=== PATIENT | female | born 1950 | race Caucasian/White ===

== ENCOUNTER 2020-01-04 12:33 | Outpatient (CLI) | payer MEDICARE, OTHER, SELFPAY ==
--- NOTE | ~2020-01-04 | MR_ITS ---
EXAMINATION: MR lumbar spine wo [facility] EXAM DATE: 01/04/2020 13:41 INDICATION: Low back pain. TECHNIQUE: Multi-sequential, multiplanar MR images of the lumbar spine were obtained without contrast . Sagittal T1, T2, T2 fat saturation images. Axial T2 weighted images. There is no prior study for comparison. FINDINGS: There is interbody and posterior fusion L4-S1. L4 and L5 laminectomies. There is moderate t o severe disc disease L2-3 and L3-4 with endplate degenerative signal change. The conus medullaris te rminates at the L1/2 level and has normal signal intensity and morphology. There is 3-4 mm retrolisth esis L2 on L3, 2-3 mm retrolisthesis L3 on L4. Paraspinal soft tissue is unremarkable. Level by level evaluation: T12-L1: Disc does not extend beyond the endplate margin. Facet arthropathy: None. Neural foraminal stenosis: No stenosis. Central canal stenosis: No stenosis. L1-L2: Disc does not extend beyond the endplate margin. Facet arthropathy: Mild. Neural foraminal stenosis: No stenosis. Central canal stenosis: No stenosis. L2-L3: There is a large diffuse disc bulge. Facet arthropathy: Moderate . Ligamentum flavum enlargement. Neural foraminal stenosis: Mild to moderate bilateral. Central canal stenosis: Moderate. L3-L4: There is a large diffuse disc bulge. Facet arthropathy: Severe . Ligamentum flavum enlargement. Neural foraminal stenosis: Moderate right, mild to moderate left. Central canal stenosis: Moderate to severe. L4-L5: This level is fused. Facet arthropathy: Poorly visualized. Neural foraminal stenosis: Mild right. Central canal stenosis: Posterior decompression. L5-S1: This level is fused. Facet arthropathy: Moderate. Neural foraminal stenosis: Mild right. Central canal stenosis: Posterior decompression. IMPRESSION: 1. Advanced disc disease L2-3 and L3-4 with L3-4 moderate to severe central canal stenosis. 2. L4-5 and L5-S1 fusion, laminectomies. Reviewed, dictated and finalized at location A. IMPRESSION: 1. Advanced disc disease L2-3 and L3-4 with L3-4 moderate to severe central ca nal stenosis. 2. L4-5 and L5-S1 fusion, laminectomies.
== END 2020-01-04 12:34 | disposition home or self-care (01) ==
LOC: ANHIMG 12:34
PROVIDERS: PCP Family Medicine; Visit Provider Nurse Practitioner
DX: M51.36 Other intervertebral disc degeneration, lumbar region (principal)
CPT/HCPCS: 72148

== ENCOUNTER 2020-06-10 11:27 | Outpatient (CLI) | payer MEDICARE, OTHER, SELFPAY ==
--- NOTE | ~2020-06-10 | MM_ITS ---
EXAMINATION: MM screening garcia BI w nayana HISTORY: Screening mammogram, family history of breast cancer in her sister. TECHNIQUE: Craniocaudal and mediolateral oblique 3-D tomosynthesis images were obtained and synthetic 2-D images were generated. CAD analysis was submitted and interpreted. COMPARISON: 05/31/2019, 04/28/2018, 04/14/2017 BREAST PARENCHYMAL COMPOSITION: There are scattered areas of fibroglandular density. FINDINGS: Scattered benign-appearing calcifications are present. There is no evidence of suspicious m ass, calcification, or architectural distortion to suggest malignancy in either breast. There has bee n no suspicious interval change. IMPRESSION: 1. No mammographic evidence of malignancy. 2. Recommend routine screening mammography in one year. BI-RADS Category 2: Benign finding(s). Reviewed, dictated and finalized at location A.
== END 2020-06-10 11:28 | disposition home or self-care (01) ==
LOC: ANHIMG 11:31
PROVIDERS: PCP Family Medicine; Visit Provider Student in an Organized Health Care Education/Training Program
DX: Z12.31 Encounter for screening mammogram for malignant neoplasm of breast (principal)
CPT/HCPCS: 77063; 77067

== ENCOUNTER 2021-01-10 08:40 | Outpatient (CLI) | payer MEDICARE, OTHER, SELFPAY ==
--- NOTE | ~2021-01-10 | CT_ITS ---
EXAMINATION: CT abdomen w con DATE: 01/10/2021 09:09 INDICATION: Left upper quadrant abdominal pain TECHNIQUE: Computed tomography (CT) of the abdomen was performed with 100 cc Omnipaque 350 intravenou s contrast. Automated exposure control and iterative reconstruction technique were employed. Exam dos e: 1029.60 mGy-cm total exam DLP. COMPARISON: 06/30/2015 CT abdomen pelvis noncontrast examination FINDINGS: There is minimal discoid atelectasis or scarring at the lung bases. Heart size is within normal range. No pericardial or pleural effusion. Small sliding hiatal hernia. 2.2 cm and 1 cm hepatic cysts. No suspicious solid space-occupying mass lesion of the liver. Status post cholecystectomy. No bile duct or pancreatic duct dilatation. No pancreatic mass lesion or calcification. Normal splenic size. Normal morphology of the adrenal glands. 13, 7 and 5 mm left renal cysts. Approximately 4 mm nonobstructing upper pole left renal calculus and adjacent renal scarring. No hydr onephrosis is noted on either side. Normal caliber of the abdominal aorta. No intraperitoneal or retroperitoneal mass lesion or adenopath y or ascites. Small fat-containing umbilical hernia. Status post posterior and interbody spinal surgical fusion at L4-S1. There is very severe degenerative disc disease and mild retrolisthesis at L2-3 and L3-4. IMPRESSION: Small sliding hiatal hernia Status post cholecystectomy Hepatic and left renal cysts 4 mm nonobstructing upper pole left renal calculus and adjacent left upper pole renal scarring Status post posterior and interbody surgical fusion at L4 S1 Severe degenerative disc disease and mild retrolisthesis at L2-3 and L3-4 Reviewed, dictated and finalized at Location A. Reviewed, dictated and finalized at location B.
[2021-01-10 09:13] LABS: Estimated Glomerular Filt Rate > 60
[2021-01-10 10:05] LABS: Hemoglobin A1C 5.6 % (<5.7)
[2021-01-14 11:31] LABS: Vitamin D 1,25 (OH)2 Total 41 pg/mL (18-72); Vitamin D2 1,25 (OH)2 <8 pg/mL; Vitamin D3 1,25 (OH)2 41 pg/mL
== END 2021-01-10 08:41 | disposition home or self-care (01) ==
PROVIDERS: PCP Nurse Practitioner Family; Visit Provider Nurse Practitioner Family
DX: R73.01 Impaired fasting glucose (principal); E03.9 Hypothyroidism, unspecified; E55.9 Vitamin D deficiency, unspecified; K44.9 Diaphragmatic hernia without obstruction or gangrene; Z90.49 Acquired absence of other specified parts of digestive tract; N28.1 Cyst of kidney, acquired; K76.89 Other specified diseases of liver; Z98.1 Arthrodesis status; M51.36 Other intervertebral disc degeneration, lumbar region
CPT/HCPCS: 74160; 82652; 83036; 84443; Q9967

== ENCOUNTER 2021-01-15 12:52 | Outpatient (RCR) | payer MEDICARE, OTHER, SELFPAY ==
--- NOTE | 2021-01-15 13:57 | PTOPEVAL ---
Thank you for referring Janette Bynum to [facility].? The patient is scheduled to be seen for therapy? __3__x/week for 12 visits. Please review, sign, date and return this plan of care CASANDRA. I agree with and certify that the following plan of care is medically necessary. Referring Physician Date Admitting Provider: Attending Provider: Noelle Tate NP Referring Provider: *PT Outpatient Evaluation Start: 01/15/21 13:00 Freq: Status: Active Protocol: Document 01/15/21 13:00 OBED (Rec: 01/15/21 13:56 OBED [id number]) Therapy Assessment Status Assessment Status Assessment Status Evaluation Outpatient Past Medical History Neurological History Hx Neurological Disorders No Significant History Cardiovascular History Hx Cardiac Catheterization Yes: Stents x2 2016, Stent x1 2018 Hx Hypercholesterolemia Yes Hx Hypertension Yes Respiratory History Hx Respiratory Disorders No Significant History Gastrointestinal History Hx Gall Bladder Disease Yes: 1994 Genitourinary History Hx Kidney Stones Yes: 2012, 2013 with Removal Musculoskeletal History Hx Joint Replacement Yes: Bilateral Knee 2014 Hx Spinal Surgery Yes: 2007, lower lumbar stabilization with fusion, plates, screws Hematological History Hx Hematological Disorders No Significant History Endocrine History Hx Endocrine Disorders No Significant History HEENT History Hx Cataracts Yes: Removed Integumentary History Hx Skin Disorders No Significant History Reproductive History Hx Hysterectomy Yes: 2003 Psychosocial History Hx Psychiatric Disorders No Significant History Pain History History of Any Previous or Ongoing No Significant History Instance of Pain Anesthesia History Hx Anesthesia Reactions No Significant History Other History Hx Implanted Device Yes: Lumbar back, Heart Stents , Bilateral Knee Evaluation Information Problem Diagnosis dorsalgia Onset 01/15/21 Subjective Information Pt. reports that she has long Query Text:As Reported By Patient/ hx of back pain. She reports Family that pain has been increasing over the past year. She describes pain going across the low back and worsens throughout the day. She does not describe any pain in the legs or buttock. Pain is worsened with bending and walki
--- NOTE | 2021-02-22 11:26 | PCPTNOTE ---
02/22/21 - patient reports she would like to DC therapy via phone call. as of this date, all progress towards goals will be taken from her most recent evaluation/note.
== END 2021-01-31 15:20 | disposition home or self-care (01) ==
LOC: CHSPT 12:52
PROVIDERS: Visit Provider Nurse Practitioner Family
DX: M54.9 Dorsalgia, unspecified (principal)
CPT/HCPCS: 97014; 97110; 97161; G0283

== ENCOUNTER → 2021-03-03 00:21 | Outpatient (CLI) | payer MEDICARE, OTHER, SELFPAY ==
[2021-03-03 19:43] LABS: SARS-CoV-2 RNA PCR Negative
== END ==
PROVIDERS: PCP Pathology Anatomic Pathology & Clinical Pathology; Visit Provider Internal Medicine Gastroenterology
DX: Z01.812 Encounter for preprocedural laboratory examination (principal); Z20.822 Contact with and (suspected) exposure to COVID-19
CPT/HCPCS: C9803; U0003; U0005

== ENCOUNTER 2021-03-07 03:05 | Day surgery (SDC) | payer MEDICARE, OTHER, SELFPAY ==
[2021-02-26 15:37] VITALS: BMI 39.2
--- NOTE | 2021-03-07 07:44 | WPDANESEPPF ---
Anes - Initial Pre Proc Eval Procedure: Operation Date: 03/07/21 10:30 Proposed Procedures p Esophagogastroduodenoscopy - Clay Malagon MD Date/Time: 03/07/21 07:44 Surgeon: Clay Malagon MD Pre Op Diagnosis: gerd Patient Data Age: 70 Gender: F Height: 1.65 m Weight: 106.8 kg Allergies Allergy/AdvReac Type Severity Reaction Status Date / Time Iodinated Contrast Media Allergy Mild Hives Verified 03/07/21 09:29 iodine Allergy Mild Hives Verified 03/07/21 09:29 oxycodone Allergy Mild Confusion Verified 03/07/21 09:29 Home Medications Medication Instructions Recorded Confirmed Type ascorbic acid (vitamin C) [Vitamin 500 mg PO DAILY 08/23/19 03/07/21 History C] aspirin [Adult Low Dose Aspirin] 81 mg PO DAILY 08/23/19 03/07/21 History atorvastatin 40 mg PO DAILY 08/23/19 03/07/21 History calcium carbonate [Calcium 500] 500 mg PO DAILY 08/23/19 03/07/21 History cholecalciferol (vitamin D3) 4,000 unit PO DAILY 08/23/19 03/07/21 History [Vitamin D3] ergocalciferol (vitamin D2) See Rx Instructions .ROUTE .COMPLEX 08/23/19 03/07/21 History [Vitamin D2] pantoprazole 40 mg PO QAM 08/23/19 03/07/21 History amlodipine 2.5 mg tablet 2.5 mg PO .COMPLEX tablet 12/15/19 03/07/21 History nitroglycerin 0.4 mg sublingual 0.4 mg SUBLINGUAL DIRECTED PRN 12/15/19 03/07/21 History tablet tablet clobetasol 0.05 % topical cream 1 applic TOPICAL BID #45 g 10/10/20 03/07/21 Rx levothyroxine 25 mcg tablet See Rx Instructions .ROUTE 12/01/20 03/07/21 Rx .COMPLEX #90 tablet Patient hx anesthesia problems: none Family hx anesthesia problems: none PMFSH Past Medical History Medical History Back pain CAD (coronary artery disease) Chest pain at rest Chronic GERD Chronic pain Essential (primary) hypertension GERD without esophagitis Hyperlipidemia Hyperlipidemia Hypertension Hypothyroid Sleep apnea Vitamin D deficiency Surgical History Surgical History History of appendectomy History of carpal tunnel release History of coronary artery stent placement (~06/2017) X2 2017, LAD & RCA History of lithotripsy (~2012) History of lumbar fusion (~2007) 2008 History of total knee arthroplasty bilateral 03/2015, 08/2015 Hx of cholecystectomy (~1994) S/P RALPH (total abdominal hysterectomy) (~2003) Endometriosis Family History Family History Grandparent Diabetes mellitus Family history of malignant neoplasm of breast Family history of coronary artery disease Mother Patient's mother is in good health Cerebrovascular accident Carcinoma of colon Family history of hearing loss Father Patient's father is in good health Family history of heart disease in male family member before age 55 Family history of Alzheimer's disease Family history of coronary artery disease Sibling Patient's sister is in good health Patient's brother is in good health Family history of malignant neoplasm of breast in first degree relative Hypertension Other Family history of allergic disorder Social History Social History Smoking status: Never smoker Second hand tobacco smoke exposure: No Alcohol intake: never Substance use: never Substance use type: does not use Living arrangements: with family Additional living arrangements comments: Gender identity (if verbalized by the patient): Female Spiritual care concerns: No Anes - Eval Final PreProcedure Day of Procedure 03/07/21 07:44 Patient weight: obese Heart: regular rate and rhythm Lungs: clear to auscultation and normal air movement Airway: Mallampati scale class II Neurological: alert and oriented Last oral intake: >/= 8 hours ASA classification: III Emergent: no Anesthetic plan: proce
[2021-03-07 09:30] VITALS: BP 147/68; PULSE 58; RESP 16; TEMP 36.6; O2SAT 98; BMI 40.7
[2021-03-07] MEDS: LACTATED RINGERS 1,000 ML 150 ML IV CONT (09:42)
--- NOTE | 2021-03-07 10:10 | WPDHPUPDATE1 ---
History and Physical Update Update Date/Time: 03/07/21 10:10 History and Physical has been reviewed, including an updated exam of the patient. There are NO changes in the patient's condition. Risks, benefits, and alternatives have been discussed and questions answered. Patient agrees to proceed with procedure.
[2021-03-07 10:40] VITALS: BP 131/78; PULSE 74; RESP 16; O2SAT 96
[2021-03-07 10:51] VITALS: BP 127/82; PULSE 65; RESP 16; O2SAT 98
[2021-03-07 11:01] VITALS: BP 143/79; PULSE 57; RESP 16; O2SAT 100
== END 2021-03-07 11:22 | disposition home or self-care (01) ==
PROVIDERS: PCP Nurse Practitioner Family; Visit Provider Internal Medicine Gastroenterology
PROC: 0DJ08ZZ Inspection of Upper Intestinal Tract, Via Natural or Artificial Opening Endoscopic (ICD-10-PCS; CPT 43235; principal; 2021-03-07 10:30)
DX: R07.9 Chest pain, unspecified (principal); K31.7 Polyp of stomach and duodenum; K21.9 Gastro-esophageal reflux disease without esophagitis; I25.10 Atherosclerotic heart disease of native coronary artery without angina pectoris; I10 Essential (primary) hypertension; E78.5 Hyperlipidemia, unspecified; E03.9 Hypothyroidism, unspecified; G47.30 Sleep apnea, unspecified; E55.9 Vitamin D deficiency, unspecified; Z79.82 Long term (current) use of aspirin; Z95.5 Presence of coronary angioplasty implant and graft; Z98.1 Arthrodesis status; E66.9 Obesity, unspecified; Z68.41 Body mass index [BMI] 40.0-44.9, adult
CPT/HCPCS: 43251; 43239; 87081; 88305; J2001; J2704; J7120

== ENCOUNTER 2021-06-22 09:23 | Outpatient (CLI) | payer MEDICARE, OTHER, SELFPAY ==
--- NOTE | ~2021-06-22 | MM_ITS ---
EXAMINATION: MM screening agrcia BI w nayana HISTORY: Screening TECHNIQUE: Craniocaudal and mediolateral oblique 3-D tomosynthesis images were obtained and synthetic 2-D images were generated. CAD analysis was submitted and interpreted. COMPARISON: Comparison to multiple prior studies sequentially, with oldest reviewed study dated 04/02. BREAST PARENCHYMAL COMPOSITION: There are scattered areas of fibroglandular density. FINDINGS: There is no evidence of suspicious mass, calcification, or architectural distortion to sugg est malignancy in either breast. There has been no suspicious interval change. IMPRESSION: 1. No mammographic evidence of malignancy. 2. Recommend routine screening mammography in one year. BI-RADS Category 1: Negative Reviewed, dictated and finalized at location A.
== END 2021-06-22 09:24 | disposition home or self-care (01) ==
LOC: ANHIMG 09:26
PROVIDERS: PCP Nurse Practitioner Family; Visit Provider Student in an Organized Health Care Education/Training Program
DX: Z12.31 Encounter for screening mammogram for malignant neoplasm of breast (principal)
CPT/HCPCS: 77063; 77067

== ENCOUNTER 2021-08-28 11:31 | Observation (INO) | payer MEDICARE, OTHER, SELFPAY ==
[2021-08-28] VITALS (32 sets, daily range): BP systolic 117–156; BP diastolic 57–81; PULSE 54–80; RESP 12–32; TEMP 36.6; O2SAT 92–99; BMI 37.5
--- NOTE | ~2021-08-28 | CT_ITS ---
EXAMINATION: CT brain wo con DATE: 08/28/2021 14:07 INDICATION: Dizziness. TECHNIQUE: Computed tomography (CT) of the head was performed without intravenous contrast. The mA wa s adjusted according to patient size. Iterative reconstruction technique was employed. The dose-lengt h product was 756.67 mGy-cm. COMPARISON: Head CT 05/24/2013 FINDINGS: There are scattered areas of low attenuation in the cerebral white matter. There is no intr acranial hemorrhage, acute infarction, or abnormal intracranial mass lesion. The ventricles are tunde l in size. There are likely changes of ocular lens replacement surgeries. There is mild mucosal thick ening in the ethmoid sinuses. The mastoid air cells are normal. IMPRESSION: 1. Moderate nonspecific cerebral white matter disease, which likely represents chronic small vessel i schemic disease, worsened from 05/24/2013. Reviewed, dictated and finalized at location A. ET ASSEMBLER METAL IMPRESSION: 1. Moderate nonspecific cerebral white matter disease, which likely represents chronic small vessel ischemic disease, worsened from 05/24/2013.
--- NOTE | ~2021-08-28 | XR_ITS ---
EXAMINATION: XR chest 1V portable EXAM DATE: 08/28/2021 20:26 INDICATION: Generalized chest pain, history coronary artery disease and hypertension. TECHNIQUE: Portable AP frontal chest x-ray was obtained. Comparison is made to prior examination from 09/22/2018. FINDINGS: The lungs are clear. There are no pleural effusions. Cardiac silhouette is prominent but magnified on this AP technique. There is no pneumothorax suspected. The bones and soft tissues are unremarkable. IMPRESSION: No acute cardiopulmonary findings. Reviewed, dictated and finalized at location A. CLOTH KNITTER
--- NOTE | 2021-08-28 11:31 | ECG_ITS ---
Measurements Intervals [place] Rate: 72 P: 30 MA: 165 QRS: -10 QRSD: 101 T: 8 QT: 404 QTc: 445 Interpretive Statements SINUS RHYTHM DELAYED PRECORDIAL R/S TRANSITION VOLTAGE CRITERIA FOR LVH BORDERLINE T WAVE ABNORMALITY- INFERIOR LEADS BORDERLINE ECG Electronically Signed On 08-28-2021 14:00:32 PLASTIC EXTRUDING MACHINE OPERATOR by Td Page D.O.
[2021-08-28 12:32] LABS: Add Urine Microscopic? NO; Appearance Urine Clear (Clear); Bilirubin Urine Negative (Negative); Blood Urine Negative (Negative); Color Urine Colorless (Yellow); Glucose Urine UA Negative (Negative); Ketones Urine Negative (Negative); Leukocyte Esterase Ur Negative LEU/UL (Negative); Nitrate Urine Negative (Negative); Protein Urine Negative (Negative); Urobilinogen Urine Negative mg/dL (<2.0)
[2021-08-28] MEDS: SODIUM CHLORIDE 0.9% IV 1,000 ML 150 ML IV CONT (12:44)
[2021-08-28 12:45] LABS: Specific Grav Ur 1.004 (1.001-1.035)
[2021-08-28] MEDS: LORazepam INJ (*CRX) 2 MG/ML VIAL 0.5 MG IV PUSH (12:47)
[2021-08-28] MEDS: MECLIZINE HCL 25 MG TABLET PO (12:48)
[2021-08-28 13:08] LABS: Basophils Percent Auto 0.4 % (0.2-1.2); Eosinophils Absolute Auto 0.1 K/mm3 (0-0.3); Eosinophils Percent Auto 0.5 % (0-4.4); Hemoglobin 14.4 g/dL (12.0-15.0); Immature Granulocyte Absolute 0.03 K/mm3 (0.00-0.031); Immature Granulocyte Percent A 0.3 % (0-0.5); Lymphocytes Absolute Auto 1.06 K/mm3 (0.9-3.2); Lymphocytes Percent Auto 11.5 % (18.3-44.2); Mean Corpuscular HGB Conc 33.5 g/dl (32-36); Mean Corpuscular Hemoglobin 32.7 pg (26-34); Mean Corpuscular Volume 97.5 fl (80-100); Mean Platelet Volume 10.3 fl (7.4-10.4); Monocytes Absolute Auto 0.6 K/mm3 (0.1-0.6); Monocytes Percent Auto 6.2 % (2.6-8.5); Neutrophils Absolute Auto 7.4 K/mm3 (1.3-6.7); Neutrophils Percent Auto 81.1 % (45.5-73.1); Platelet Count Result 194 k/mm3 (150-375); Red Blood Count 4.41 M/mm3 (4.2-5.4); Red Cell Distribution Width 13.2 % (11.5-14.5); White Blood Count 9.2 K/mm3 (4.5-10.0)
[2021-08-28 13:20] LABS: Alanine Aminotransferase 25 U/L (4-35); Albumin Level 4.2 g/dL (3.5-5.1); Alkaline Phosphatase 88 U/L (38-126); Anion Gap 7 mmol/L (8-16); Aspartate Amino Transferase 31 U/L (14-36); Bilirubin,Total 0.5 mg/dL (0.2-1.3); Blood Urea Nitrogen 17 mg/dL (7-17); Calcium 10.1 mg/dL (8.4-10.2); Carbon Dioxide 28 mmol/L (22-30); Chloride 106 mmol/L (98-107); Estimated CRCL calculation 92 ml/min; Estimated Glomerular Filt Rate > 60; Glucose 124 mg/dL (65-110); Potassium 3.7 mmol/L (3.4-5.0); Sodium 141 mmol/L (137-145)
[2021-08-28 13:29] LABS: Troponin I < 0.012 ng/mL (0.000-0.034)
--- NOTE | 2021-08-28 14:49 | ED.DIZZY ---
HPI - Dizziness General Chief Complaint: Dizziness Stated Complaint: dizzy Source: patient and family Mode of arrival: wheelchair Limitations: no limitations History of Present Illness HPI Narrative: 71-year-old with a history of hypertension, CAD with s/p 3 stents here with complaints of sudden onset of dizziness. Patient states this morning she woke up room spinning associated with nausea and vomiting. Patient also complains of left-sided chest pain on and off for last few weeks. Patient reports that she had [address] Jaimes at [facility] several years ago. She presently rates her pain very minimal. No history of shortness of breath or cough. MD elicited complaint: vertigo Onset (ago): day(s) (1) Timing: sudden onset Severity: moderate Description: room spinning Context: change in body position Exacerbating factors: movement/ambulation Relieving factors: remaining still Associated symptoms: nausea and vomiting Related Data Home Medications Medication Instructions Recorded Confirmed ascorbic acid (vitamin C) [Vitamin 500 mg PO DAILY 08/23/19 05/11/21 C] aspirin [Adult Low Dose Aspirin] 81 mg PO DAILY 08/23/19 05/11/21 atorvastatin 40 mg PO DAILY 08/23/19 05/11/21 calcium carbonate [Calcium 500] 500 mg PO DAILY 08/23/19 05/11/21 cholecalciferol (vitamin D3) 4,000 unit PO DAILY 08/23/19 05/11/21 [Vitamin D3] ergocalciferol (vitamin D2) See Rx Instructions .ROUTE .COMPLEX 08/23/19 05/11/21 [Vitamin D2] pantoprazole 40 mg PO QAM 08/23/19 05/11/21 nitroglycerin 0.4 mg sublingual 0.4 mg SUBLINGUAL DIRECTED PRN 12/15/19 05/11/21 tablet tablet Allergies Allergy/AdvReac Type Severity Reaction Status Date / Time Iodinated Contrast Media Allergy Mild Hives Verified 05/11/21 11:38 iodine Allergy Mild Hives Verified 05/11/21 11:38 oxycodone Allergy Mild Confusion Verified 05/11/21 11:38 Review of Systems Review of Systems: All systems reviewed & are unremarkable except as noted in HPI and below Constitutional: Constitutional: Reports no additional constitutional complaints Eyes: Eyes: Reports no additional eye complaints ENT: Reports system reviewed and no additional complaints, except as documented Cardiovascular: Cardiovascular: Reports chest pain Respiratory: Respiratory: Reports no additional respiratory complaints Gastrointestinal: Gastrointestinal: Reports nausea and Reports vomiting Musculoskeletal: Musculoskeletal: Reports no additional musculoskeletal complaints Integumentary/Breasts: Skin/Breast: Reports system reviewed and no additional complaints, except as docu Neurologic: Reports system reviewed and no additional complaints, except as documented [facility] Past Medical History Medical History Back pain CAD (coronary artery disease) Chest pain at rest Chronic GERD Chronic pain Essential (primary) hypertension GERD without esophagitis Hyperlipidemia Hyperlipidemia Hypertension Hypothyroid Sleep apnea Vitamin D deficiency Surgical History Surgical History History of appendectomy History of carpal tunnel release History of coronary artery stent placement (~06/2017) X2 2017, LAD & RCA History of lithotripsy (~2012) History of lumbar fusion (~2007) 2008 History of total knee arthroplasty bilateral 03/2015, 08/2015 Hx of cholecystectomy (~1994) S/P RALPH (total abdominal hysterectomy) (~2003) Endometriosis Family History Family History Grandparent Diabetes mellitus Family history of malignant neoplasm of breast Family history of coronary artery disease Mother Patient's mother is in good health Cerebrovascular accident Carcinoma of colon Family history of hearing loss Father Patient's father is in good health Family history of heart disease in male family member before a
[2021-08-28] MEDS: SODIUM CHLORIDE 0.9% IV 1,000 ML 125 ML IV CONT (19:31)
--- NOTE | 2021-08-28 20:05 | PM.IMHP ---
H&P: HPI History of Present Illness Date/Time: 08/28/21 20:05 this is a 71-year-old female patient who has had a history of 3 stents in the past. Patient stated that she has the new onset of dizziness. She woke up this morning with the room spinning she also had some nausea vomiting. She has some left-sided chest pain on and off over the last few weeks. Patient typically goes to Dr. Jaimes [facility] for her cardiac stents. The patient stated that when she lay still she does not have any dizziness. Head CT was read as moderate nonspecific cerebral white matter disease, which likely represents chronic small vessel ischemic disease worsened from 05/24/2013. Troponin was negative x1. The patient was given IV fluids, Ativan and Antivert. The patient stated that that did help some. The patient also has sleep apnea and is asking the to bring back her CPAP. The patient is being admitted to observation status on date of service 08/28/2021. Chief Complaint: Chest pain and dizziness Review of Systems Review of Systems: All systems reviewed & are unremarkable except as noted in HPI and below Constitutional: Constitutional: Reports as per HPI and Reports no additional constitutional complaints Eyes: Eyes: Reports as per HPI and Reports no additional eye complaints ENT: Reports system reviewed and no additional complaints, except as documented and Reports Normal hearing present Cardiovascular: Cardiovascular: Reports no additional cardiovascular complaints Respiratory: Respiratory: Reports no additional respiratory complaints and Reports no additional respiratory complaints Gastrointestinal: Gastrointestinal: Reports as per HPI and Reports no additional gastrointestinal complaints Musculoskeletal: Musculoskeletal: Reports no additional musculoskeletal complaints Integumentary/Breasts: Skin/Breast: Reports system reviewed and no additional complaints, except as docu and Reports as per HPI Neurologic: Reports system reviewed and no additional complaints, except as documented, Reports as per HPI and Reports Normal hearing present Psychiatric: Psychiatric: Reports no additional psychiatric complaints and Reports as per HPI Endocrine: Endocrine: Reports no additional endocrine complaints Hematologic/Lymphatic: Hematologic/Lymphatic: Reports no additional hematologic/lymphatic complaints Allergic/Immunologic: Allergic/Immunologic: Reports no additional allergic/immunologic complaints [facility] Past Medical History Medical History Back pain CAD (coronary artery disease) Chest pain at rest Chronic GERD Chronic pain Essential (primary) hypertension GERD without esophagitis Hyperlipidemia Hyperlipidemia Hypertension Hypothyroid Sleep apnea Vitamin D deficiency Surgical History Surgical History (Updated 08/28/21 @ 20:13 by Lana Mosher NP) History of appendectomy History of carpal tunnel release History of coronary artery stent placement (~06/2017) X2 2017, LAD & RCA in then another 1 stent after that for total of 3 History of lithotripsy (~2012) History of lumbar fusion (~2007) 2008 History of total knee arthroplasty bilateral 03/2015, 08/2015 Hx of cholecystectomy (~1994) S/P RALPH (total abdominal hysterectomy) (~2003) Endometriosis Family History Family History Grandparent Diabetes mellitus Family history of malignant neoplasm of breast Family history of coronary artery disease Mother Patient's mother is in good health Cerebrovascular accident Carcinoma of colon Family history of hearing loss Father Patient's father is in good health Family history of heart disease in male family member before age 55 Family history of Alzheimer's disease Family history of coronary artery disease Sibling Patient's sister is in good health Patient's brother is in good health Family histor
--- NOTE | 2021-08-28 21:16 | ADMGEN ---
This patient, Janette Bynum, was admitted to IMU Room 232-01 on 08/28/21 at 2050. Patient/family oriented to hospital policies and general routines including ID bracelet, bed and alarms, visiting hours, pain management, procedures, bathroom and other care routines, personal items, smoking policy, room service/diet, and visiting hours. Information on how to activate the Rapid Response Team has been discussed. Patient/Family are encouraged to report perceived risks to care and to ask questions if they do not understand what they are told or what they should do.
[2021-08-28 21:29] LABS: Troponin I < 0.012 ng/mL (0.000-0.034)
[2021-08-28] MEDS: ENOXAPARIN 40 MG/0.4 ML SYRINGE SUB-Q (22:40)
[2021-08-28] MEDS: MECLIZINE HCL 6.25 MG TABLET PO (22:40)
[2021-08-29] VITALS (11 sets, daily range): BP systolic 128–150; BP diastolic 60–79; PULSE 52–71; RESP 16–24; TEMP 36.5–36.9; O2SAT 96–100
--- NOTE | 2021-08-29 | ECHO_ITS ---
Patient Info Name: Janette Bynum Age: 71 years : 1950 Gender: Female Ht: 65 in Wt: 240 lbs BSA: 2.29 m2 HR: 54 bpm BP: 128 / 60 mmHg Heart Rhythm: Sinus Rhythm Exam Date: 08/29/2021 10:12 AM Exam Location: [facility] Patient Status: Outpatient Admit Date: 08/28/2021 Staff Ordering Physician: Lana Mosher NP Account Manager Education: Vish Larsen RDCS, RT Attending Provider: Sugar Rapp PA-C Referring Physician: Nomi POTTER; Exam Type: CA echo doppler color flow Study Info Indications R07.89 - Other chest pain Complete two-dimensional, color flow and Doppler transthoracic echocardiogram is performed. Strain analysis performed. Summary 1. Complete two-dimensional, color flow and Doppler transthoracic echocardiogram is performed. 2. Left ventricular size and thickness. Good contractility of all segments with no segmental wall motion abnormalities. Visual E estimated ejection fraction is 60-65%. Calculated ejection fraction is 57%. Normal diastolic function. Global longitudinal strain is-15%, mildly diminished suggestive of a degree of systolic dysfunction. 3. Left atrial chamber dimension is mildly enlarged. 4. Mild pulmonary hypertension, estimated pulmonary arterial systolic pressure is 46 mmHg. 5. There is mild pulmonic regurgitation. 6. Normal sinus rhythm. Left Ventricle Left ventricular chamber dimension is normal. Left ventricular systolic function is normal, estimated at 60-65%. There is no increased left ventricular wall thickness. Left ventricular septal wall motion is normal. The left ventricular diastolic function is normal. Global longitudinal strain is mildly elevated at -15 %. Right Ventricle Right ventricular chamber dimension is normal. Right ventricular systolic function is normal. Left Atria Left atrial chamber dimension is mildly enlarged. Right Atria Right atrial chamber dimension is normal. Aortic Valve The aortic valve is trileaflet. There is no aortic valve sclerosis. There is no aortic valve stenosis. There is trace aortic valve regurgitation. Pulmonic Valve The pulmonic valve is normal. There is no pulmonic valve stenosis. There is mild pulmonic regurgitation. Mitral Valve The mitral valve has normal leaflets. There is no mitral valve stenosis. There is trace mitral valve regurgitation. Tricuspid Valve The tricuspid valve leaflets are normal. There is no significant tricuspid valve stenosis. There is trace tricuspid valve regurgitation. Mild pulmonary hypertension, estimated pulmonary arterial systolic pressure is 46 mmHg. Pericardium/Pleural The pericardium appears normal. There is no pericardial effusion. Inferior Vena Cava Normal inferior vena cava with >50% collapse upon inspiration consistent with Empty right atrial pressure, 15 mmHg. Aorta The aortic root size at the sinus of Valsalva is normal. The prox ascending aorta size is normal. Left Ventricular Outflow Tract Name Value Normal LVOT 2D LVOT Diameter 2.0 cm LVOT Doppler LVOT Peak Gradient 4 mmHg LVOT Mean Gradien
[2021-08-29] MEDS: SODIUM CHLORIDE 0.9% IV 1,000 ML 125 ML IV CONT (04:30)
[2021-08-29 05:34] LABS: Alanine Aminotransferase 20 U/L (4-35); Albumin Level 3.5 g/dL (3.5-5.1); Alkaline Phosphatase 70 U/L (38-126); Anion Gap 5 mmol/L (8-16); Aspartate Amino Transferase 23 U/L (14-36); Bilirubin,Total 0.5 mg/dL (0.2-1.3); Blood Urea Nitrogen 12 mg/dL (7-17); Carbon Dioxide 27 mmol/L (22-30); Chloride 109 mmol/L (98-107); Estimated CRCL calculation 89 ml/min; Estimated Glomerular Filt Rate > 60; Glucose 104 mg/dL (65-110); Lactate Dehydrogenase 390 U/L (313-618); Lipase 40 U/L (23-300); Magnesium 1.8 mg/dL (1.6-2.3); Potassium 3.6 mmol/L (3.4-5.0); Sodium 141 mmol/L (137-145)
[2021-08-29] MEDS: ATORVASTATIN 40 MG TABLET PO (06:16)
[2021-08-29] MEDS: LEVOTHYROXINE SODIUM 25 MCG TABLET PO (06:16)
[2021-08-29] MEDS: ASCORBIC ACID 500 MG TABLET PO (09:13)
[2021-08-29] MEDS: CHOLECALCIFEROL 1,000 UNITS TABLET 4000 UNITS PO (09:13)
[2021-08-29] MEDS: ASPIRIN 81 MG CHEWABLE TABLET PO (09:13)
[2021-08-29] MEDS: PANTOPRAZOLE 40 MG TABLET PO (09:13)
[2021-08-29] MEDS: CALCIUM CARBONATE (OSCAL) 500 MG TABLET PO (09:13)
[2021-08-29] MEDS: MECLIZINE HCL 6.25 MG TABLET PO ×2 (09:13→12:05)
[2021-08-29] MEDS: ACETAMINOPHEN 500 MG TABLET PO (09:13)
--- NOTE | 2021-08-29 10:18 | PM.CNCAR ---
Assessment and Plan Assessment and plan (1) Chest pain: Qualifiers: Chest pain type: unspecified Qualified Code(s): R07.9 - Chest pain, unspecified Code(s): R07.9 - Chest pain, unspecified Status: Acute Assessment and Plan: Atypical chest pain, normal troponins, no ischemic EKG changes. Tenderness to palpation suggesting musculoskeletal chest pain/costochondritis Tylenol p.r.n. No further cardiac testing needed at this time. (2) CAD (coronary artery disease): Code(s): I25.10 - Atherosclerotic heart disease of [place] coronary artery without angina pectoris Status: Acute Assessment and Plan: History of CAD and stents, no angina. Continue aspirin, statin therapy etc.. Follow-up with her usual cartridge maker, Dr. Jaimes. (3) Essential (primary) hypertension: Code(s): I10 - Essential (primary) hypertension Status: Acute Assessment and Plan: Blood pressure generally at goal. (4) Benign paroxysmal positional vertigo: Qualifiers: Laterality: unspecified laterality Qualified Code(s): H81.10 - Benign paroxysmal vertigo, unspecified ear Code(s): H81.10 - Benign paroxysmal vertigo, unspecified ear Status: Acute Assessment and Plan: Evaluation and treatment per hospitalist. (5) Hyperlipidemia: Qualifiers: Hyperlipidemia type: mixed hyperlipidemia Qualified Code(s): E78.2 - Mixed hyperlipidemia Code(s): E78.5 - Hyperlipidemia, unspecified Status: Acute Assessment and Plan: On atorvastatin 40 mg daily. History of Present Illness History of Present Illness Consult date/time: 08/29/21 10:18 Consult reason: chest pain Reason For Visit: dizziness,chest pain Narrative: Janette Bynum is a 71-year-old female with history of CAD whom we were asked to see at the request of the hospitalist for advice and opinion regarding her chest pain, in consultation. The patient tells me that she was fine in the morning then around 9:00 a.m. when she was sitting looking at her phone suddenly the room began to spin. She has had dizziness before but nothing as severe as this. She came very nauseated. She called out for her who could not hear her so sat for a while. She called for him again, upset, and he arrived and took her back to her bedroom. Was very difficult to walk because of her dizziness. Her heart was pounding. After about 15-20 minutes she had no improvement so her called the ambulance. On their arrival her heart rate was 60-82 and blood pressure 153/84. Her dizziness had and nausea have improved with meclizine. There was no chest pain or shortness of breath with this. The patient also has been having some chest discomfort for several months. It is in the left lateral area below the breast. It is worse when she reclines. It is sore to touch. It is a dull ache. It can occur occasionally to several times a day. She can exert, climbs stairs, and carry groceries in from the car with no chest discomfort or shortness of breath. She has been followed by Dr. Jaimes at [facility] in [place]. She has a history of stents to the distal RCA and proximal Left anterior descending with balloon angioplasty of the diagonal vessel in 2016 at [place]. In July 2017 she she had a cardiac catheterization at [facility] with patent stents. In 2017 for chest pain she had a stress test which is basically negative. In 2018 for ongoing chest pain she had a catheterization and had PCI to the proximal RCA. She has been seen recently by Dr. Jaimes and it who felt her chest pain was noncardiac. She underwent EGD by Dr. Malagon recently did not find any GI etiology for chest pain. Review of Systems
--- NOTE | 2021-08-29 13:44 | PM.DS ---
DS: Admitting Diagnosis Discharge Date 08/29/21 Admitting Diagnosis Dizziness/Chest pain DS: Discharge Diagnosis Discharge Diagnosis (1) Chest pain: Qualifiers: Chest pain type: unspecified Qualified Code(s): R07.9 - Chest pain, unspecified Code(s): R07.9 - Chest pain, unspecified Status: Acute Assessment and Plan: Patient is a 71-year-old woman with history of CAD status post PCI x3, hypertension, hyperlipidemia, hypothyroidism, who presented to emergency room with sudden onset of dizziness with associated nausea. Patient was in her normal state health until after she ate breakfast and went to sit down in the living room. She suddenly began having dizziness and after symptoms continued for 20 minutes she was concerned and her call 911. EMS gave her some antiemetics with improvement of her nausea. On arrival to ER she received some IV fluid hydration and meclizine with improvement of her symptoms. Initial labs showed elevated blood pressure 156/81, heart rate 63, afebrile, normal oxygenation on room air. Initial labs showed normal CBC normal BMP, negative troponins times 2. Urinalysis normal. Chest x-ray showed no acute cardiopulmonary findings. CT head showed Moderate nonspecific cerebral white matter disease, which likely represents chronic small vessel ischemic disease. She had also complained of chest pains so they wanted to admit her to the hospital for further workup and rule out acute coronary syndrome. EKG showed normal sinus rhythm with a heart rate of 72 beats per minute, no acute ST T-wave changes. Cardiology was consulted who evaluated the patient and did not feel she was having acute coronary syndrome. Echocardiogram showed normal EF 60-65%, mild pulmonary hypertension. Cardiology felt she was stable for discharge to follow-up with her farm labor contractor in the next few weeks. Upon my evaluation the patient denied any more significant dizziness while being on scheduled meclizine t.i.d.. She denies any issues with walking, focal weakness, vision changes, headache, confusion, or any other concerning symptoms. She felt comfortable with discharge at this time to continue on meclizine as needed for dizziness. She reports having 4 similar dizziness episodes, but with this being the worst over the last 5 months. I recommended her to follow up with a vestibular physical therapist for further evaluation. Follow-up with PCP in 1 week. Return to ER warnings given. She understands and agrees the plan. All questions answered. (2) Benign paroxysmal positional vertigo: Qualifiers: Laterality: unspecified laterality Qualified Code(s): H81.10 - Benign paroxysmal vertigo, unspecified ear Code(s): H81.10 - Benign paroxysmal vertigo, unspecified ear Status: Acute (3) Hypothyroid: Qualifiers: Hypothyroidism type: acquired Qualified Code(s): E03.9 - Hypothyroidism, unspecified Code(s): E03.9 - Hypothyroidism, unspecified Status: Acute (4) Essential (primary) hypertension: Code(s): I10 - Essential (primary) hypertension Status: Acute (5) Hyperlipidemia: Qualifiers: Hyperlipidemia type: mixed hyperlipidemia Qualified Code(s): E78.2 - Mixed hyperlipidemia Code(s): E78.5 - Hyperlipidemia, unspecified Status: Acute (6) Sleep apnea: Code(s): G47.30 - Sleep apnea, unspecified Status: Acute DS: Summary Hospital Course Hospital Course: See above Status at Discharge Cognitive/behavioral status at discharge: Stable, improved. Time Spent with Patient Time attestation: Total time spent providing and/or coordinating discharge services: 41 Time spent: Greater than 30 minutes Exam Narrative: General: 71-year-old woman sitting up in bed eating lunch. Appears comfortable. In no acute distress. Skin: No jaundice or cyanosis. Good skin turgor. Neck: Full range of motion. Supple. Respiratory
== END 2021-08-29 15:40 | disposition home or self-care (01) ==
LOC: ANHED 14:58 → ANHIMU 18:15
PROVIDERS: Nurse Practitioner; Admitting Provider Family Medicine; Emergency Provider Family Medicine; PCP Family Medicine; Visit Provider Physician Assistant
DX: R07.9 Chest pain, unspecified (principal); H81.10 Benign paroxysmal vertigo, unspecified ear; I25.10 Atherosclerotic heart disease of native coronary artery without angina pectoris; I10 Essential (primary) hypertension; E03.9 Hypothyroidism, unspecified; E78.5 Hyperlipidemia, unspecified; G47.30 Sleep apnea, unspecified; Z95.5 Presence of coronary angioplasty implant and graft; Z96.653 Presence of artificial knee joint, bilateral
CPT/HCPCS: 36415; 70450; 71045; 80053; 81003; 83615; 83690; 83735; 84443; 84484; 85025; 93005; 93306; 96361; 96372; 96374; 99285; A9270; G0378; J1650; J2060; J7030

== ENCOUNTER 2022-06-18 15:29 | Outpatient (RCR) | payer MEDICARE, OTHER, SELFPAY ==
--- NOTE | 2022-06-18 15:07 | PTOPEVAL1 ---
Evaluation Information Assessment Status Evaluation Diagnosis R shoulder/arm pain Onset 06/10/22 Subjective Information patient reports she has been having pain in the front of the arm/shoulder since october. however, she reports she has been haveing increased symptoms since then. she reports no specific injury. she reports back in october she was making more quilts and cutting material frequently. she reports thus far she has taken 14 days of prednisone, used and ice pack at home, and takes tylenol as needed. she reports no injection, and no imaging as of this date. patient denies NTB in the R UE. Reported Pain Level Pain Score 3: Self Report Assessment PT Clinical Summary mrs. suárez presents to skilled PT services for evaluation and treatment of R shoulder pain. as of this date, she presents with signs and symptoms of R shoulder biceps and RTC tendonitis. she would do well to attend and participate in skilled PT to improve her objective/functional deficits and progress towards a return to her prior level functional activity performance/quality of life. Plan of Care Interventions Electrical Stimulation,Hot Pack/Cold Pack,Manual Therapy,Patient/Caregiver Educati,Therapeutic Activities,Therapeutic Exercise PT Services Indicated Yes Treatment Frequency and 3x weekly for 12 visits Duration These treatments will address the objective and functional deficits as defined above. The patient will be advanced safely and appropriately in order for the patient to progress towards his/her prior level of function. Additional exercises will be introduced and as well as a comprehensive home exercise program upon discharge, if needed, ?to ensure carryover of functional gains achieved in the clinic. This treatment plan has been reviewed and agreement upon by the patient.
--- NOTE | 2022-07-22 14:56 | PTOPPROGNS ---
Assessment and note entered by Katia Palm, PT Evaluation Information Assessment Status Progress Diagnosis R shoulder/arm pain Onset 06/10/22 Subjective Information Janette reports she is noting improvements in her right shoulder pain since initiating PT. She notes less pain and improved mobility with reaching and lifting when she is doing household activities. 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 She feels she has improved 80% overall and may be ready to discharge next week. Assessment PT Clinical Summary Janette Bynum has completed 10 physical therapy visits for right shoulder pain. She reports improved mobility and less pain since initiating PT. She does still have difficulty lifting and cutting fabric. She objectively demonstrates improved right shoulder ROM and improving right shoulder strength. She continues to have decreased functional right shoulder strength and positive special tests for bicep and rotator cuff tendonitis. She will continue to benefit from skilled PT to further address ongoing deficits. Plan of Care Interventions Electrical Stimulation,Hot Pack/Cold Pack,Manual Therapy,Patient/Caregiver Educati,Therapeutic Activities,Therapeutic Exercise PT Services Indicated Yes These treatments will address the objective and functional deficits as defined above. The patient will be advanced safely and appropriately in order for the patient to progress towards his/her prior level of function. Additional exercises will be introduced and as well as a comprehensive home exercise program upon discharge, if needed, ?to ensure carryover of functional gains achieved in the clinic. This treatment plan has been reviewed and agreement upon by the patient.
== END 2022-07-29 17:08 | disposition home or self-care (01) ==
LOC: CHSPT 15:29
PROVIDERS: Visit Provider Nurse Practitioner Family
DX: M25.511 Pain in right shoulder (principal)
CPT/HCPCS: 97014; 97110; 97140; 97161; G0283

== ENCOUNTER 2022-07-15 11:45 | Outpatient (CLI) | payer MEDICARE, OTHER, SELFPAY ==
[2022-07-15 12:30] LABS: Alanine Aminotransferase 23 U/L (6-35); Aspartate Amino Transferase 25 U/L (14-36)
== END 2022-07-15 11:46 | disposition home or self-care (01) ==
LOC: ANHLAB 11:50
PROVIDERS: PCP Nurse Practitioner Family; Visit Provider Podiatrist Foot & Ankle Surgery
DX: B35.1 Tinea unguium (principal)
CPT/HCPCS: 36415; 84450; 84460

== ENCOUNTER 2022-08-31 12:03 | Outpatient (CLI) | payer MEDICARE, OTHER, SELFPAY ==
--- NOTE | ~2022-08-31 | MM_ITS ---
EXAMINATION: MM screening garcia BI w nayana HISTORY: Screening TECHNIQUE: Craniocaudal and mediolateral oblique 3-D tomosynthesis images were obtained and synthetic 2-D images were generated. CAD analysis was submitted and interpreted. COMPARISON: Comparison to multiple prior studies sequentially, with oldest reviewed study dated 04/02. BREAST PARENCHYMAL COMPOSITION: The breasts are almost entirely fatty. FINDINGS: There is no evidence of suspicious mass, calcification, or architectural distortion to sugg est malignancy in either breast. There has been no suspicious interval change. IMPRESSION: 1. No mammographic evidence of malignancy. 2. Recommend routine screening mammography in one year. BI-RADS Category 1: Negative Reviewed, dictated and finalized at location A. ER BLOCK LAYER
== END 2022-08-31 12:04 | disposition home or self-care (01) ==
PROVIDERS: PCP Family Medicine; Visit Provider Student in an Organized Health Care Education/Training Program
DX: Z12.31 Encounter for screening mammogram for malignant neoplasm of breast (principal)
CPT/HCPCS: 77063; 77067

== ENCOUNTER → 2022-10-28 14:52 | Outpatient (CLI) | payer MEDICARE, OTHER, SELFPAY ==
--- NOTE | ~2022-10-28 | XR_ITS ---
EXAMINATION: XR chest 2V Exam Date/Time: 10/28/2022 14:57 CARDROOM HAND HISTORY: cough sob fever for 5 days Comparison: 08/28/2021. RESULT: Lines, tubes, and devices: None. Lungs and pleura: Mid and lower lung reticulonodular opacities with cuffing and indistinct jorge. Cardiomediastinal silhouette: Stable. Other: No acute osseous or upper abdominal finding. IMPRESSION: Pulmonary opacities may represent bronchiolitis, as can be seen with atypical infection, asthma, aspi ration, and small airways disease. Reviewed, dictated and finalized at location K. ROOM HAND IMPRESSION: Pulmonary opacities may represent bronchiolitis, as can be seen with atypical i nfection, asthma, aspiration, and small airways disease.
== END ==
PROVIDERS: PCP Family Medicine; Visit Provider Nurse Practitioner Family
DX: R05.9 Cough, unspecified (principal); R91.8 Other nonspecific abnormal finding of lung field
CPT/HCPCS: 71046

== ENCOUNTER 2022-11-05 10:55 | Outpatient (CLI) | payer MEDICARE, OTHER, SELFPAY ==
[2022-11-05 12:11] LABS: Alanine Aminotransferase 29 U/L (6-35); Aspartate Amino Transferase 28 U/L (14-36)
== END 2022-11-05 10:56 | disposition home or self-care (01) ==
LOC: ANHLAB 10:57
PROVIDERS: PCP Family Medicine; Visit Provider Podiatrist Foot & Ankle Surgery
DX: B35.1 Tinea unguium (principal)
CPT/HCPCS: 36415; 84450; 84460

== ENCOUNTER 2022-12-25 14:04 | Outpatient (CLI) | payer MEDICARE, OTHER, SELFPAY ==
--- NOTE | ~2022-12-25 | DEXA_ITS ---
Bone Density Report Name: MACRINA PALMER Age: 72 Sex: Female Ethnicity: White Date of : 1950 Indication: postmenopausal; screening for osteoporosis; height loss; hysterectomy; Referring Provider: ALEJO MCKEON Study: Bone densitometry was performed. Exam Date: December 25, 2022 Accession number: [id number] Bone Density: Region BMD T-score Z-score Classification AP Spine(L1, L2) 1.093 1.0 3.0 Normal Femoral Neck (Left) 0.629 -2.0 -0.1 Osteopenia Total Hip (Left) 1.068 1.0 2.6 Normal Femoral Neck (Right) 0.636 -1.9 -0.1 Osteopenia Total Hip (Right) 1.061 1.0 2.5 Normal Total Hip Mean 1.064 1.0 2.6 Normal World Health Organization criteria for BMD impression classify patients as: Normal (T-score at or above -1.0), Osteopenia (T-score between -1.0 and -2.5), or Osteoporosis (T-score at or below -2.5). 10-year Fracture Risk(1): Major Osteoporotic Fracture 10% Hip Fracture 1.8% Reported Risk Factors: [place] (), Neck BMD=0.629, BMI=42.2 (1) FRAX(R) Version 3.08. Fracture probability calculated for an untreated patient. Fracture probability may be lower if the patient has received treatment. Clinical Information Provided by Patient: Has used the following medications: Vitamin D, Calcium Has the following medical conditions: Hysterectomy Patient maximum height was 65 Menopause Age: 54 Onset of menses at age 14 Number of children 2 Impression: The patient has low bone mass, based on the Left Femoral Neck T-score. The patient has an estimated ten-year risk of hip fracture of 1.8% and an estimated ten-year risk of major fracture of 10%, based on the WHO FRAX algorithm. Discussion: BONE DENSITY IS LOW AT ONE OR MORE SKELETAL SITES. This patient's lowest T-score is low at one or more skeletal sites. It meets the World Health Organization's (WHO) criteria for ?low bone mass? (T-score between -1.0 and -2.5). The patient's 10-year risk of fracture as calculated by FRAX is less than the threshold where pharmacological therapy is recommended by the National Osteoporosis Foundation (NOF). However, all treatment decisions require clinical judgment and consideration of individual patient factors, including patient preferences, comorbidities, previous drug use, risk factors not captured in the FRAX model (e.g., frailty, falls, vitamin D deficiency, increased bone turnover, interval significant decline in bone density) and possible under or overestimation of fracture risk by FRAX. The patient should follow a healthful lifestyle (good nutrition with adequate calcium and vitamin D, and appropriate weight-bearing exercise). Follow-Up: Consider repeating this study in 2 to 3 years to reassess this patient's status, or sooner if there is some new clinical indication. Reported
== END 2022-12-25 14:05 | disposition home or self-care (01) ==
LOC: ANHIMG 14:05
PROVIDERS: PCP Family Medicine; Visit Provider Student in an Organized Health Care Education/Training Program
DX: Z78.0 Asymptomatic menopausal state (principal); M85.852 Other specified disorders of bone density and structure, left thigh; M85.851 Other specified disorders of bone density and structure, right thigh
CPT/HCPCS: 77080

== ENCOUNTER 2023-10-23 16:05 | Outpatient (CLI) | payer MEDICARE, OTHER, SELFPAY ==
--- NOTE | ~2023-10-23 | MM_ITS ---
EXAMINATION: MM screening garcia BI w nayana HISTORY: Screening mammogram, family history of breast cancer in her sister. TECHNIQUE: Craniocaudal and mediolateral oblique 3-D tomosynthesis images were obtained and synthetic 2-D images were generated. CAD analysis was submitted and interpreted. COMPARISON: 09/08/2022, 06/22/2021, 06/10/2020 BREAST PARENCHYMAL COMPOSITION:Not Dense. The breasts are almost entirely fatty FINDINGS: There is a 7 mm mass which is more conspicuous as compared to prior exams at the outer, wesley tral right breast. No suspicious mass, calcification, or architectural distortion are identified in t he left breast to suggest malignancy. IMPRESSION: 7 mm outer, central right breast mass, which is more conspicuous as compared to prior exams. Spot co mpression views, and possibly ultrasound, recommended for further evaluation. BI-RADS Category 0: Incomplete: Needs additional imaging evaluation. Reviewed, dictated and finalized at location . L ASSISTANT MANAGER IMPRESSION: 7 mm outer, central right breast mass, which is more conspicuous as compared t o prior exams. Spot compression views, and possibly ultrasound, recommended for further evaluation. BI-RADS Category 0: Incomplete: Needs additional imaging evaluation.
== END 2023-10-23 16:06 | disposition home or self-care (01) ==
PROVIDERS: PCP Family Medicine; Visit Provider Registered Nurse
DX: Z12.31 Encounter for screening mammogram for malignant neoplasm of breast (principal); R92.8 Other abnormal and inconclusive findings on diagnostic imaging of breast
CPT/HCPCS: 77063; 77067

== ENCOUNTER 2023-10-30 12:47 | Outpatient (CLI) | payer MEDICARE, OTHER, SELFPAY ==
--- NOTE | ~2023-10-30 | MMUS_ITS ---
EXAMINATION: MM diagnostic garcia RT w nayana, US breast RT limited HISTORY: Right breast mass on screening mammogram TECHNIQUE: Additional 3-D tomosynthesis images of the right breast were performed and synthetic 2-D i mages were generated. CAD analysis was submitted and interpreted. High resolution limited right breas t ultrasound was performed. COMPARISON: 10/23/2023, 08/31/2022, 06/22/2021 FINDINGS: MAMMOGRAPHIC FINDINGS: There is a 6 mm x 4 mm oval, low density, circumscribed mass in the middle third of the outer breast at the 9:00 location, 10 cm from the nipple. With spot compression, the mass appears stable when comp ared to prior mammograms. ULTRASOUND: There are two adjacent cysts of the right breast at the 10:00 location, 8 cm from the nipple which me asure up to 3 mm. No suspicious cystic or solid mass is identified. IMPRESSION: 1. No mammographic or sonographic evidence of malignancy. 2. Recommend routine screening mammography in one year. BI-RADS Category 2: Benign finding(s). Reviewed, dictated and finalized at location A. ESTATE BRANCH MANAGER IMPRESSION: 1. No mammographic or sonographic evidence of malignancy. 2. Recommend routine screening mammography in one year. BI-RADS Category 2: Benign finding(s).
== END 2023-10-30 12:48 | disposition home or self-care (01) ==
PROVIDERS: PCP Family Medicine; Visit Provider Registered Nurse
DX: R92.8 Other abnormal and inconclusive findings on diagnostic imaging of breast (principal)
CPT/HCPCS: 76642; 77061; 77065; G0279

== ENCOUNTER → 2023-11-12 09:53 | Outpatient (CLI) | payer MEDICARE, OTHER, SELFPAY ==
--- NOTE | ~2023-11-12 | XR_ITS ---
Lumbosacral Spine: AP and lateral views Clinical History: Pain Findings: The normal lordotic curve is maintained. There is posterior and interbody fusion extending from L4 through S1, bilateral rods and transpedicular screws present, as well as associated disc fusi on devices. There is 5 mm retrolisthesis of L2 over L3. There is 3 mm retrolisthesis of L3 over L4. T here is severe degenerative disc narrowing at L2-L3 and L3-L4. The sacroiliac joints are normally out lined. Impression: Posterior fusion from L4 through S1. Moderate to advanced degenerative spondylosis at L2-L3 and L3-L4. 5 mm retrolisthesis of L2 over L3. 3 mm retrolisthesis of L3 over L4. Reviewed, dictated and finalized at location . CTOR SPEECH AND HEARING Impression: Posterior fusion from L4 through S1. Moderate to advanced degenerative spondylosis at L2-L3 and L3-L4. 5 mm retrolisthesis of L2 over L3. 3 mm retrolisthesis of L3 over L4.
--- NOTE | ~2023-11-12 | XR_ITS ---
Thoracic spine: Clinical Indication: Back pain AP and lateral views were performed. No fracture is seen. There is normal alignment of the vertebrae. The intervertebral disc spaces appe ar normal. Paravertebral soft tissues appear normal. Impression: No significant abnormalities noted. Reviewed, dictated and finalized at [facility]. SHAPER Impression: No significant abnormalities noted.
== END ==
PROVIDERS: PCP Nurse Practitioner Family; Visit Provider Nurse Practitioner Family
DX: M47.896 Other spondylosis, lumbar region (principal)
CPT/HCPCS: 72070; 72100

== ENCOUNTER 2023-11-21 07:40 | Outpatient (CLI) | payer MEDICARE, OTHER, SELFPAY ==
--- NOTE | ~2023-11-21 | MR_ITS ---
MRI of the thoracic spine Clinical History: Back pain Technique: Axial T2-weighted and gradient images, and sagittal T1-weighted, T2-weighted, and STIR junior ges were acquired. Findings: There is no fracture or subluxation of the thoracic spine. Vertebral bodies maintain normal height and alignment. No suspicious bone marrow signal abnormality seen. There is mild degenerative change throughout the mid thoracic spine. No significant disc bulge or herniation seen at any thoracic level. No spinal canal stenosis or cord compression identified. No epidural mass or collection seen. No abnormal signal seen in the spinal cord. Paravertebral soft tissues are unremarkable. Impression: Mild degenerative disc change throughout the mid thoracic spine. Reviewed, dictated and finalized at location . NG HANGER SUPERVISOR Impression: Mild degenerative disc change throughout the mid thoracic spine.
--- NOTE | ~2023-11-21 | MR_ITS ---
MRI of the lumbar spine Clinical History: Back pain Technique: Axial T2-weighted images, and sagittal T1-weighted, T2-weighted, and STIR images were acqu ired. COMPARISON: 01/04/2020 Findings: Posterior fusion hardware is again present extending from L4 through S1, with bilateral sage s and transpedicular screws present. Interbody fusion devices are present at the L4-L5 and L5-S1 disc spaces, with mature fusion present. There is 3 mm retrolisthesis of L2 over L3. There is 3 mm retrol isthesis of L3 over L4. There is reactive marrow edema about the L2-L3 and L3-L4 disc spaces due to u nderlying degenerative disc disease. At L1-L2, there is no disc bulge or herniation. There is mild to moderate facet arthropathy. No centr al canal stenosis or neural foraminal narrowing. At L2-L3, there is advanced degenerative disc narrowing. There is diffuse disc bulge, especially the left paracentral to left foraminal region, with moderate to advanced facet arthropathy. There is mode rate central canal stenosis/thecal sac compression. There is moderate bilateral neural foraminal narr owing. At L3-L4, there is severe degenerative disc narrowing. Disc bulge and severe facet arthropathy result in severe spinal canal stenosis/thecal sac compression. There is moderate to advanced bilateral neur al foraminal narrowing. At L4-L5, there is no disc bulge or herniation. There is no spinal canal stenosis. There is posterior decompression. No definite neural foraminal narrowing seen. At L5-S1, there is no disc bulge or herniation. No central canal stenosis. Neural foramina are probab ly preserved. Paravertebral soft tissues are unremarkable. Impression: Severe degenerative spondylosis at L3-L4, as detailed above. Moderate to advanced degenerative spondy losis at L2-L3, as detailed above. Posterior and interbody fusion changes from L4 through S1, as detailed above. Reviewed, dictated and finalized at location [facility]. [employer] Impression: Severe degenerative spondylosis at L3-L4, as detailed above. Moderate to advanc ed degenerative spondylosis at L2-L3, as detailed above. Posterior and interbody fusion changes from L4 through S1, as detailed above.
== END 2023-11-21 07:41 | disposition home or self-care (01) ==
PROVIDERS: PCP Nurse Practitioner Family; Visit Provider Nurse Practitioner Family
DX: M47.896 Other spondylosis, lumbar region (principal); M51.36 Other intervertebral disc degeneration, lumbar region; Z98.1 Arthrodesis status; M51.34 Other intervertebral disc degeneration, thoracic region
CPT/HCPCS: 72146; 72148

== ENCOUNTER 2023-12-18 12:39 | Emergency (ER) | payer MEDICARE, OTHER, SELFPAY ==
[2023-12-18 12:57] VITALS: BP 145/68; PULSE 57; RESP 18; TEMP 36.7; O2SAT 100
--- NOTE | 2023-12-18 13:05 | ED.DIZZY ---
HPI - Dizziness General Chief Complaint: Dizziness Stated Complaint: DIZZINESS Source: patient, RN notes reviewed and old records reviewed Mode of arrival: ambulatory Limitations: no limitations History of Present Illness HPI Narrative: 73-year-old female who presents to [facility] with complaint of dizziness this started Friday. Patient states has long history of vertigo and has meclizine at home. Patient states meclizine at home was 12.5 mg and she has been taking half of that. Patient states is not helping. Patient denies any other symptoms. Related Data Home Medications Medication Instructions Recorded Confirmed ascorbic acid (vitamin C) 500 mg 500 mg PO DAILY 08/23/19 12/18/23 tablet (Vitamin C) aspirin 81 mg tablet,delayed 81 mg PO DAILY 08/23/19 12/18/23 release (Adult Low Dose Aspirin) atorvastatin 40 mg tablet 40 mg PO HS 08/23/19 12/18/23 calcium carbonate 500 mg calcium 500 mg PO DAILY 08/23/19 12/18/23 (1,250 mg) tablet (Calcium 500) cholecalciferol (vitamin D3) 50 4,000 unit PO DAILY 08/23/19 12/18/23 mcg (2,000 unit) tablet (Vitamin D3) pantoprazole 40 mg tablet,delayed 40 mg PO QAM 08/23/19 12/18/23 release nitroglycerin 0.4 mg sublingual 0.4 mg sublingual DIRECTED PRN 12/15/19 12/18/23 tablet Chest Pain Tylenol 500 mg PO DAILY 08/28/21 12/18/23 magnesium 250 mg tablet 250 mg PO DAILY 02/27/22 12/18/23 lysine 500 mg tablet 500 mg PO DAILY 10/28/22 12/18/23 Allergies Allergy/AdvReac Type Severity Reaction Status Date / Time Iodinated Contrast Media Allergy Mild Hives Verified 12/18/23 12:52 iodine Allergy Mild Hives Verified 12/18/23 12:52 oxycodone Allergy Mild Confusion Verified 12/18/23 12:52 Review of Systems Constitutional: Constitutional: Reports no additional constitutional complaints, Denies body ache(s), Denies chills, Denies fatigue, Denies fever(s) and Denies headache(s) Eyes: Eyes: Reports no additional eye complaints and Denies blurry vision ENT: Reports system reviewed and no additional complaints, except as documented, Reports vertigo, Denies dizziness, Denies ear discharge, Denies otalgia, Denies facial pain, Denies headache(s), Denies nasal congestion, Denies nasal discharge, Denies sinus pain, Denies sinus pressure and Denies sore throat Cardiovascular: Cardiovascular: Reports no additional cardiovascular complaints, Denies chest pain, Denies chest pain at rest, Denies rapid heart rate and Denies dyspnea Respiratory: Respiratory: Reports no additional respiratory complaints, Denies chest congestion, Denies cough, Denies pain on inspiration, Denies pain with cough and Denies dyspnea Gastrointestinal: Gastrointestinal: Denies abdominal pain, Denies diarrhea, Denies nausea and Denies vomiting Integumentary/Breasts: Skin/Breast: Denies rash Neurologic: Reports system reviewed and no additional complaints, except as documented, Denies vertigo, Denies dizziness and Denies headache(s) Endocrine: Endocrine: Denies fatigue PMFSH Past Medical History Medical History Back pain CAD (coronary artery disease) Chronic GERD Chronic pain Essential (primary) hypertension GERD without esophagitis Hyperlipidemia Hypertension Hypothyroid Sleep apnea Vitamin D deficiency Surgical History Surgical History History of appendectomy History of carpal tunnel release History of coronary artery stent placement (~06/2017) X2 2017, LAD & RCA in then another 1 stent after that for total of 3 History of lithotripsy (~2012) History of lumbar fusion (~2007) 2007 History of total knee arthroplasty bilateral 03/2015, 08/2015 Hx of cholecystectomy (~1994) S/P RALPH (total abdominal hysterectomy) (~2003) Endometriosis Family History Family History Grandparent Diabetes mellitus Family history of malignant rey
[2023-12-18] MEDS: MECLIZINE HCL 25 MG TABLET PO (13:16)
[2023-12-18] MEDS: ONDANSETRON HCL ODT 4 MG TABLET PO (13:16)
== END 2023-12-18 13:41 | disposition home or self-care (01) ==
PROVIDERS: Emergency Provider Registered Nurse; PCP Nurse Practitioner Family
DX: R42 Dizziness and giddiness (principal); I25.10 Atherosclerotic heart disease of native coronary artery without angina pectoris; K21.9 Gastro-esophageal reflux disease without esophagitis; I10 Essential (primary) hypertension; E78.5 Hyperlipidemia, unspecified; E03.9 Hypothyroidism, unspecified; E55.9 Vitamin D deficiency, unspecified; Z95.5 Presence of coronary angioplasty implant and graft; Z96.653 Presence of artificial knee joint, bilateral; Z79.82 Long term (current) use of aspirin
CPT/HCPCS: 99213; A9270; G0463

== ENCOUNTER 2024-01-09 10:15 | Outpatient (RCR) | payer MEDICARE, OTHER, SELFPAY ==
--- NOTE | 2023-12-19 14:41 | PTOPEVAL1 ---
Assessment and note entered by Shawn Garsia, PT Evaluation Information Assessment Status Evaluation Diagnosis Vertigo Onset November 2023 Subjective Information States that she has been miserable since Friday. She has sleep apnea and has difficulty with turning in bed without waking up and losing sleep. She is unable to look down or turn her head. Feels un steady on her feet. She has a history of motion sickness. She has woken up with a fullness in her ears and sinuses. She has had similar symptoms in the past and were resolved with therapy. Reported Pain Level Pain Score 0: Self Report Assessment PT Clinical Summary Patient presents with positive nystagmus on L side and with supine to sit activity. She was treated with Laura maneuver x 3 to left side with home instruction for positioning and activity avoidance . Patient will benefit from skilled therapy to address deficits to ensure resolution of positional symptoms and promote return to functional without dizziness or diminished quality of life. Patient was in agreement with plan of care. Plan of Care PT Services Indicated Yes Treatment Frequency and 1x/week for 4 visits. Will be reassessed if BPPV Duration is resolved. These treatments will address the objective and functional deficits as defined above. The patient will be advanced safely and appropriately in order for the patient to progress towards his/her prior level of function. Additional exercises will be introduced and as well as a comprehensive home exercise program upon discharge, if needed, ?to ensure carryover of functional gains achieved in the clinic. This treatment plan has been reviewed and agreement upon by the patient.
--- NOTE | 2023-12-19 14:41 | OPREHPOC ---
Outpatient Therapy Plan of Care This is a Multidisciplinary Plan of Care that may contain components documented by all disciplines (PT, OT, and ST.) PT Problem 1 PT Problem #1 Knowledge Deficit PT Goal 1 Goal Patient will be independent with Rochelle Rick Exercises for gaze stabilization and tracking. Target Visit 4 PT Goal 1 Goal Patient will demonstrate negitive Hcin-Halpike test bilaterally Target Visit 4 PT Goal 2 Goal Patient will demonstrate negative vertigo with floor retrieval
--- NOTE | 2024-01-09 10:57 | PTOPDC ---
Assessment and note entered by Shawn Garsia, PT Evaluation Information Assessment Status Discharge Diagnosis Vertigo Onset November 2023 Subjective Information Reports that she only has any minor issues when she bends over to lift at this time. She has been able to significantly improve her sleeping and transfers without dizziness. Feels 100% better than the first day that she came in. Reported Pain Level Pain Score 0: Self Report Assessment PT Clinical Summary Patient has met all goals for therapy and is suitable for discharge to [facility] at this time. No positive symptoms of BPPV with activity or transfers. Plan of Care PT Services Indicated D/C to [facility]
--- NOTE | 2024-01-09 10:57 | OPREHPOC ---
Outpatient Therapy Plan of Care This is a Multidisciplinary Plan of Care that may contain components documented by all disciplines (PT, OT, and ST.) PT Problem 1 PT Problem #1 Knowledge Deficit PT Goal 1 Goal Patient will be independent with Rochelle Rick Exercises for gaze stabilization and tracking. Target Visit 4 Progress Met PT Goal 1 Goal Patient will demonstrate negitive Chin-Halpike test bilaterally Target Visit 4 Progress Met PT Goal 2 Goal Patient will demonstrate negative vertigo with floor retrieval Progress Met
== END 2024-01-09 11:34 | disposition home or self-care (01) ==
LOC: ANHGOSHPT 10:15
PROVIDERS: PCP Nurse Practitioner Family; Visit Provider Nurse Practitioner Family
DX: H81.12 Benign paroxysmal vertigo, left ear (principal)
CPT/HCPCS: 95992; 97112; 97161; 97530

== ENCOUNTER 2024-03-16 13:30 | Outpatient (RCR) | payer MEDICARE, OTHER, SELFPAY ==
--- NOTE | 2024-01-13 15:31 | OPREHPOC ---
Outpatient Therapy Plan of Care This is a Multidisciplinary Plan of Care that may contain components documented by all disciplines (PT, OT, and ST.) PT Problem 1 PT Problem #1 Knowledge Deficit PT Goal 1 Goal [place] for HEP Target Visit 6 PT Goal 1 Goal Patient will demonstrate ability to maintain stability on uneven surface with eyes closed for 1 minute without LOB for improve vestibular stabilization Target Visit 6 PT Goal 2 Goal Demonstrate ability to maintain straight line walking with head motion for distanced of 50 feet or greater Target Visit 6 PT Goal 1 Goal Patient will perform squat lifts of 10# x 10 with no dizziness or LOB go for improve head positioning with functional activity Target Visit 6
--- NOTE | 2024-01-13 15:31 | PTOPEVAL1 ---
Assessment and note entered by Shawn Garsia, PT Evaluation Information Assessment Status Evaluation Diagnosis BPPV, Vertigo Subjective Information Reports that she had just finished wrapping up vestibular training from BPPV. She was driving yesterday and had another episode of vertigo that caused her to need to tack puller. She has not had a major episode since yesterday, but still has some dizziness with bending over. Feel that she was improving with vestibular training and would like to continue that. A lot of head turning and bending still make her feel off. Reported Pain Level Pain Score 0: Self Report Assessment PT Clinical Summary Patient at this time did not show any positivity for BPPV recurrence. She does have some vestibular and proprioceptive defiuits which may be lingering from more joint terminal attack controller issues. She will benefit from skilled therapy to address deficits and improve gross vestibular stability and normalization. Plan of Care Interventions Gait Training,Manual Therapy,Neuro Re-education, Therapeutic Activities,Therapeutic Exercise PT Services Indicated Yes Treatment Frequency and 1x/week for 6 visits Duration These treatments will address the objective and functional deficits as defined above. The patient will be advanced safely and appropriately in order for the patient to progress towards his/her prior level of function. Additional exercises will be introduced and as well as a comprehensive home exercise program upon discharge, if needed, ?to ensure carryover of functional gains achieved in the clinic. This treatment plan has been reviewed and agreement upon by the patient.
--- NOTE | 2024-01-30 13:53 | PCPTNOTE ---
Patient canceled appointment this date due to having to take care of sister who had surgery.
--- NOTE | 2024-03-16 14:20 | OPREHPOC ---
Outpatient Therapy Plan of Care This is a Multidisciplinary Plan of Care that may contain components documented by all disciplines (PT, OT, and ST.) PT Problem 1 PT Problem #1 Knowledge Deficit PT Goal 1 Goal [place] for HEP Target Visit 6 Progress Met PT Goal 1 Goal Patient will demonstrate ability to maintain stability on uneven surface with eyes closed for 1 minute without LOB for improve vestibular stabilization Target Visit 6 Progress Met PT Goal 2 Goal Demonstrate ability to maintain straight line walking with head motion for distanced of 50 feet or greater Target Visit 6 Progress Met PT Goal 1 Goal Patient will perform squat lifts of 10# x 10 with no dizziness or LOB go for improve head positioning with functional activity Target Visit 6 Progress Met
--- NOTE | 2024-03-16 14:21 | PTOPDC ---
Assessment and note entered by Shawn Garsia, PT Evaluation Information Assessment Status Discharge Diagnosis BPPV, Vertigo Subjective Information Reports that she feels she is close to about 100% better. She will occasionally move too quickly which can bring some unsteadiness on. She has been focusing on keeping her head steady and not doing any unnecessary bending. Feels that majority of the issues she was having after the last session of BPPV are resolved. She has no concerns at this time and feels prepared for discharge. Reported Pain Level Pain Score 0: Self Report Assessment PT Clinical Summary Patient has met all goals for therapy and is suitable for discharge to [facility] at this time. No concerns at this time and patient is comfortable with home vestibular training. Plan of Care PT Services Indicated D/C to [facility]
== END 2024-03-16 14:32 | disposition home or self-care (01) ==
LOC: ANHGOSHPT 13:30
PROVIDERS: PCP Nurse Practitioner Family; Visit Provider Otolaryngology
DX: H81.10 Benign paroxysmal vertigo, unspecified ear (principal); H81.90 Unspecified disorder of vestibular function, unspecified ear
CPT/HCPCS: 97110; 97112; 97161

== ENCOUNTER 2024-09-13 12:24 | Outpatient (CLI) | payer MEDICARE, OTHER, SELFPAY ==
--- NOTE | ~2024-09-13 | XR_ITS ---
XR humerus RT Ordering provider: Rosie Mancilla MD History: . M79.601 - Pain in right arm . Comparison: None. FINDINGS: BONES: No acute fracture or dislocation. JOINT SPACES: Osteoarthritic changes of the acromioclavicular joint. Degenerative changes in the area of the greater tuberosity. SOFT TISSUES: Normal. IMPRESSION: No acute osseous abnormality right humerus. Reviewed, dictated and finalized at location A. GER CAR[facility]
== END 2024-09-13 12:25 | disposition home or self-care (01) ==
LOC: GOSHIMG 12:25
PROVIDERS: PCP Family Medicine; Visit Provider Family Medicine
DX: M79.601 Pain in right arm (principal)
CPT/HCPCS: 73060

== ENCOUNTER 2024-09-18 16:51 | Emergency (ER) | payer MEDICARE, OTHER, SELFPAY ==
[2024-09-18 16:56] VITALS: BP 139/67; PULSE 61; RESP 18; TEMP 36.6; O2SAT 98
--- NOTE | 2024-09-18 17:04 | ED_ITS ---
HPI - Skin/Abscess/Foreign Bdy General Chief complaint: Skin/Abscess/Foreign Body Stated complaint: swollen hand s/p burn Source: patient Mode of arrival: ambulatory History of Present Illness HPI narrative: patient is a 74-year-old female with significant past medical history that presents today for a burn/cellulitis. Patient had a burn on her left hand around her base of thumb that is about a 4 cm area. She said started office just a burn she is not sure how she will run it but she did and then it started getting red around it and now it is starting to hurt and become tender and has redness that spreads around 2 cm around the area of the burn. MD complaint: discoloration and other ( Burn/cellulitis) Onset (ago): day(s) Tetanus up to date: yes Location: L hand Severity: mild Quality: burning Pain Consistency: intermittent Relieving factors: none Exacerbating factors: none Context: none Associated symptoms: denies other symptoms Related Data Home Medications Medication Instructions Recorded Confirmed ascorbic acid (vitamin C) 500 mg 500 mg PO DAILY 08/23/19 09/18/24 tablet (Vitamin C) aspirin 81 mg tablet,delayed 81 mg PO DAILY 08/23/19 09/18/24 release (Adult Low Dose Aspirin) calcium carbonate (Calcium 500) 500 mg PO DAILY 08/23/19 09/18/24 cholecalciferol (vitamin D3) 50 4,000 unit PO DAILY 08/23/19 09/18/24 mcg (2,000 unit) tablet (Vitamin D3) nitroglycerin 0.4 mg sublingual 0.4 mg sublingual DIRECTED PRN 12/15/19 09/18/24 tablet Chest Pain lysine 500 mg tablet 500 mg PO DAILY 10/28/22 09/18/24 atorvastatin 40 mg tablet 40 mg PO QHS 09/13/24 09/18/24 Allergies Allergy/AdvReac Type Severity Reaction Status Date / Time Iodinated Contrast Media Allergy Mild Hives Verified 09/18/24 16:59 iodine Allergy Mild Hives Verified 09/18/24 16:59 oxycodone Allergy Mild Confusion Verified 09/18/24 16:59 Review of Systems Review of Systems: All systems reviewed & are unremarkable except as noted in HPI and below Constitutional: Constitutional: Reports as per HPI Eyes: Eyes: Reports no additional eye complaints ENT: Reports system reviewed and no additional complaints, except as documented Cardiovascular: Cardiovascular: Reports no additional cardiovascular complaints Respiratory: Respiratory: Reports no additional respiratory complaints Gastrointestinal: Gastrointestinal: Reports no additional gastrointestinal complaints Genitourinary: Genitourinary: Reports no additional female genitourinary complaints Musculoskeletal: Musculoskeletal: Reports no additional musculoskeletal complaints Integumentary/Breasts: Skin/Breast: Reports as per HPI and Reports erythema ( burn/ cellulitis on left hand base of thumb) Neurologic: Reports system reviewed and no additional complaints, except as documented Psychiatric: Psychiatric: Reports no additional psychiatric complaints Endocrine: Endocrine: Reports no additional endocrine complaints Hematologic/Lymphatic: Hematologic/Lymphatic: Reports no additional hematologic/lymphatic complaints Allergic/Immunologic: Allergic/Immunologic: Reports no additional allergic/immunologic complaints [facility] Past Medical History Medical History Back pain Benign paroxysmal positional vertigo CAD (coronary artery disease) (~2016) Chronic pain Essential (primary) hypertension Family history of colon cancer in father GERD without esophagitis History of colon polyps Hyperlipidemia Hypothyroid Osteopenia Sleep apnea TMJ (temporomandibular joint disorder) Vitamin D deficiency Surgical History Surgical History History of appendectomy History of carpal tunnel release History of coronary artery stent placement (~06/2017) X3 - 2 stents LAD & RCA in 2016 then another 1 stent in 2018 History of lithotripsy (~2012) History of lumbar fusion (~2007) 2007 History of total knee arthroplasty bilateral 03/2015, 08/2015 Hx of cholecystectomy (~1994) S/P RALPH (total abdominal hysterectomy) (~2003) Endometriosis Family History Family History Grandparent Diabetes mellitus Family history of malignant neoplasm of breast Family history of coronary artery disease Mother Patient's mother is in good health Cerebrovascular accident Carcinoma of colon Family history of hearing loss Father Patient's father is in good health Family history of heart disease in male family member before age 55 Family history of Alzheimer's disease Family history of coronary artery disease Sibling Patient's sister is in good health Patient's brother is in good health Family history of malignant neoplasm of breast in first degree relative Hypertension Other Family history of allergic disorder Social History Social History Social History: The patient lives with her who is the durable power research attorney for healthcare. 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 She has 2 children. The patient is a lifelong nonsmoker. She does not use any alcohol marijuana or illicit drugs. Code status full code Smoking status: Never smoker Second hand tobacco smoke exposure: No Alcohol intake: never Substance use: never Substance use type: does not use Lack of Transportation: No Lack of Food: Never True Current Housing: I Have Housing Concerned About Future Housing: No Difficulty Paying Gas/Electric Bills: No Difficulty Paying for Meds: No Currently Unemployed: No Education: High School Diploma/GED Difficulty w/ Childcare or Family Care: No Living arrangements: with family Additional living arrangements comments: Occupation/Education: retired Gender identity (if verbalized by the patient): Female Sexual Orientation (if Verbalized by the Patient): Straight or Heterosexual Spiritual care concerns: No Agree to blood products: Yes Exam Const: General: healthy appearing Nutritional Appearance: well nourished Orientation/consciousness: patient oriented x3 HENMT: Head: normal to inspection Ears: external ears normal Face/Nose/Sinus: Normal external nose present Face and sinus: normal facial exam Eyes: Conjunctivae: conjunctivae normal Pupils: Equal, round and reactive pupils present EOM: EOMs intact bilaterally Neck: Neck: normal visual inspection Chest: Chest palpation & inspection: normal inspection of the chest Resp: Effort & Inspection: normal respiratory effort Cardio: Rate: regular rate Rhythm: regular rhythm GI: Auscultation: normal bowel sounds Back/Spine/Pelvis: Back: no CVA tenderness Skin: General skin exam: normal color Rashes: no rashes Wounds: wounds noted ( 4 cm area burn/cellulitis left hand base of thumb.) Neuro: General: patient oriented x3 Cranial nerves: Yes Nystagmus not present Speech: normal speech Extrem: General: normal to inspection Psych: Mental Status: mental status grossly normal Course Vital Signs Vital signs: Vital Signs Temperature 97.8 F 09/18/24 16:56 Pulse Rate 61 09/18/24 16:56 Respiratory Rate 18 09/18/24 16:56 Blood Pressure 139/67 09/18/24 16:56 Pulse Oximetry 98 09/18/24 16:56 Oxygen Delivery Room Air 09/18/24 16:56 Temperature 97.8 F 09/18/24 16:56 Pulse Rate 61 09/18/24 16:56 Respiratory Rate 18 09/18/24 16:56 Blood Pressure 139/67 09/18/24 16:56 Pulse Oximetry 98 09/18/24 16:56 Oxygen Delivery Room Air 09/18/24 16:56 MDM - Skin/Abscess/Foreign Bdy MDM Narrative Medical decision making narrative: Patient is not sure how she burnt the area around her thumb but she heard about 4 5 days ago. She says now is starting to become very tender and is starting to get very red around the area where the burn was. It does look like it is starting to turn to cellulitis around the burn area and getting infected. All give her oral doxycycline and give her mupirocin ointment to apply to the affected area. Differential Diagnosis Differential diagnosis: Likely cellulitis and other ( Burn) Medical Records Attestation: I reviewed the patient's medical records. Lab Data Attestation: I reviewed the patient's lab results. Discharge Plan Discharge Clinical Impression: Cellulitis, Burn of hand Patient Disposition: Home, Self-Care Condition: Stable Instructions: Cellulitis (ED) Prescriptions: New doxycycline hyclate 100 mg tablet 100 mg PO BID Qty: 20 0RF mupirocin 2 % ointment 1 applic topical BID Qty: 15 0RF No Action nitroglycerin 0.4 mg tablet, sublingual 0.4 mg sublingual DIRECTED PRN (Reason: Chest Pain) lysine 500 mg tablet 500 mg PO DAILY aspirin [Adult Low Dose Aspirin] 81 mg Tablet,Delayed Release (Dr/Ec) 81 mg PO DAILY calcium carbonate [Calcium 500] 500 mg calcium (1,250 mg) Tablet 500 mg PO DAILY ascorbic acid (vitamin C) [Vitamin C] 500 mg Tablet 500 mg PO DAILY cholecalciferol (vitamin D3) [Vitamin D3] 2,000 unit Tablet 4,000 unit PO DAILY atorvastatin 40 mg tablet 40 mg PO QHS levothyroxine 25 mcg tablet 25 mcg PO QAM Qty: 90 1RF Follow-up/Referrals: UNKNOWN,DOCTOR [Primary Care Provider] - Time of Disposition: 17:10
[2024-09-18] MEDS: DOXYCYCLINE HYCLATE 100 MG TABLET PO (17:09)
== END 2024-09-18 17:16 | disposition home or self-care (01) ==
LOC: CHSED 17:11
PROVIDERS: Emergency Provider Family Medicine; PCP Family Medicine
DX: L03.114 Cellulitis of left upper limb (principal); I25.10 Atherosclerotic heart disease of native coronary artery without angina pectoris; E03.9 Hypothyroidism, unspecified; E78.5 Hyperlipidemia, unspecified; I10 Essential (primary) hypertension; Z79.899 Other long term (current) drug therapy; Z79.82 Long term (current) use of aspirin
CPT/HCPCS: 99283; A9270

== ENCOUNTER 2024-10-22 13:30 | Outpatient (RCR) | payer MEDICARE, OTHER, SELFPAY ==
--- NOTE | 2024-09-24 13:27 | OPREHPOC ---
Outpatient Therapy Plan of Care This is a Multidisciplinary Plan of Care that may contain components documented by all disciplines (PT, OT, and ST.) PT Problem 1 PT Problem #1 Knowledge Deficit PT Goal 1 Goal / Goal Update [place] with HEP Target Visit 4 PT Problem 2 PT Problem #2 Impaired Range of Motion PT Goal 1 Goal / Goal Update 1. Improve R shoulder flexion to 170+ degrees to improve functional reach 2. Improve R shoulder external rotation to 85 degrees to improve self care and dressing Target Visit 8 PT Goal 2 Goal / Goal Update 1. Improve internal rotation ROM to 70 degrees to allow for active reach behind back Target Visit 8 PT Problem 3 PT Problem #3 Impaired Strength PT Goal 1 Goal / Goal Update 1. Improve R shoulder flexion strength to 4+.5 to improve active reaching an lifting 2. Improve R shoulder external rotations strength to 4+/5 to improve shoulder stability Target Visit 8
--- NOTE | 2024-09-24 13:28 | PTOPEVAL1 ---
Assessment and note entered by Shawn Garsia, PT Evaluation Information Assessment Status Evaluation ICD-10 Condition Codes (PT) M25.511 Onset May 2024 Subjective Information Reports that she has had issues with shoulder in the past. She has been having pain in the medial arm and elbow but none in shoulder at this time. She has been having difficulty with quilting and cleaning around the house. She is also having night pain which is bothering her. She is getting some relief from Tylenol but nothing long lasting. If she does not use her arm the pain goes away but she cannot keep from doing activity for ADLs. Patient is R handed. Reported Pain Level Pain Score 4: Self Report Assessment PT Clinical Summary Patient presents with signs and symptoms consistent with biceps and rotator cuff tendonitis . Has notable weakness and ROM loss limiting functional activity and causing pain. Will benefit form skilled therapy to address these deficits. Plan of Care Interventions Hot Pack/Cold Pack,Manual Therapy,Neuro Re- education,Therapeutic Activities,Therapeutic Exercise PT Services Indicated Yes Treatment Frequency and 2x/week for 8 visits Duration These treatments will address the objective and functional deficits as defined above. The patient will be advanced safely and appropriately in order for the patient to progress towards his/her prior level of function. Additional exercises will be introduced and as well as a comprehensive home exercise program upon discharge, if needed, ?to ensure carryover of functional gains achieved in the clinic. This treatment plan has been reviewed and agreement upon by the patient.
--- NOTE | 2024-10-22 16:33 | OPREHPOC ---
Outpatient Therapy Plan of Care This is a Multidisciplinary Plan of Care that may contain components documented by all disciplines (PT, OT, and ST.) PT Problem 1 PT Problem #1 Knowledge Deficit PT Goal 1 Goal / Goal Update [place] with HEP Target Visit 4 Progress Met PT Problem 2 PT Problem #2 Impaired Range of Motion PT Goal 1 Goal / Goal Update 1. Improve R shoulder flexion to 170+ degrees to improve functional reach 2. Improve R shoulder external rotation to 85 degrees to improve self care and dressing Target Visit 8 Progress Met PT Goal 2 Goal / Goal Update 1. Improve internal rotation ROM to 70 degrees to allow for active reach behind back Target Visit 8 Progress Met PT Problem 3 PT Problem #3 Impaired Strength PT Goal 1 Goal / Goal Update 1. Improve R shoulder flexion strength to 4+.5 to improve active reaching an lifting 2. Improve R shoulder external rotations strength to 4+/5 to improve shoulder stability Target Visit 8 Progress Met
--- NOTE | 2024-10-22 16:33 | PTOPDC ---
Assessment and note entered by Shawn Garsia, PT Evaluation Information Assessment Status Discharge ICD-10 Condition Codes (PT) Pain in right shoulder M25.511 Onset May 2024 Subjective Information Reports that overall she is better, but the most recent round of exercises in addition to her prior exercises she is significantly exhausted. Feels that it may be a little too much to all do in one day. Pain has no longer been waking her up at night. Still taking 1 Tylenol a day. Reported Pain Level Pain Score 2: Self Report Assessment PT Clinical Summary Patient met all goals for therapy and is suitable for discharge to [facility] at this time. Improvement has been made to ROM and strength. Plan of Care PT Services Indicated Yes
== END 2024-10-26 08:57 | disposition home or self-care (01) ==
LOC: ANHGOSHPT 13:30
PROVIDERS: PCP Family Medicine; Visit Provider Family Medicine
DX: M79.601 Pain in right arm (principal); M25.511 Pain in right shoulder
CPT/HCPCS: 97110; 97140; 97161

== ENCOUNTER 2024-10-30 08:44 | Outpatient (CLI) | payer MEDICARE, OTHER, SELFPAY ==
--- NOTE | ~2024-10-30 | MM_ITS ---
EXAMINATION: MM screening garcia BI w nayana HISTORY: Screening mammogram, family history of breast cancer in her sister. TECHNIQUE: Craniocaudal and mediolateral oblique 3-D tomosynthesis images were obtained and synthetic 2-D images were generated. CAD analysis was submitted and interpreted. COMPARISON: 10/23/2023, 08/31/2022, 06/22/2021 BREAST PARENCHYMAL COMPOSITION:Not Dense. The breasts are almost entirely fatty FINDINGS: Stable outer right breast intramammary lymph node. No suspicious mass, calcification, or ar chitectural distortion are identified in either breast to suggest malignancy. There has been no suspi cious interval change. IMPRESSION: No mammographic evidence of malignancy. Recommend routine screening mammography in one year. BI-RADS Category 2: Benign finding(s). Reviewed, dictated and finalized at location . BASKET PACKER
== END 2024-10-30 08:45 | disposition home or self-care (01) ==
LOC: ANHIMG 08:47
PROVIDERS: PCP Family Medicine; Visit Provider Nurse Practitioner Family
DX: Z12.31 Encounter for screening mammogram for malignant neoplasm of breast (principal)
CPT/HCPCS: 77063; 77067

== ENCOUNTER 2024-12-10 00:42 | Day surgery (SDC) | payer MEDICARE, OTHER, SELFPAY ==
[2024-11-30 08:25] VITALS: BMI 42.0
--- OUTSIDE RECORDS SUMMARY | 2024-12-10 00:46 | XMS_ITS | Clinical Summary ---
Author Organization [facility] [address] Address [address] [place] [address] Care Team Providers Care Parachute Folder Name Role Phone Laurie Strickland MD Primary Care Provider [phone] Allergies Active Allergy Reactions Criticality Noted Date Comments Iodine Other (See comments),Anaphylaxis High 07/03/2010 HIVES WITH IV CONTRAST Medications AMOXICILLIN 500 mg capsule TAKE 4 CAPSULES BY MOUTH 1 HOUR BEFORE APPOINTMENT 1 08/09/20 18 Active ascorbic acid, vitamin C, 500 mg capsule Take 500 mg by mouth. Active CHILDREN'S ASPIRIN 81 mg chewable tablet CHEW 1 TABLET (81 MG TOTAL) BY MOUTH DAILY. 0 05/21/20 18 Active atorvastatin (LIPITOR) 40 mg tablet Take 40 mg by mouth nightly. at bedtime. 1 07/11/20 18 Active calcium citrate-vitamin D3 (CITRACAL+D) 315-200 mg-unit per tablet Take 500 mg by mouth. Active calcium carbonate-vitamin D3 1,250mg (500mg elemental) - 5 mcg (200 units) per tablet 600 mg daily Active celecoxib (CeleBREX) 200 mg capsule Take 200 mg by mouth. 09/05/20 15 Active clopidogrel (PLAVIX) 75 mg tablet Take 75 mg by mouth daily. 0 06/02/20 18 Active clotrimazole 1 % cream APPLY TO AFFECTED AND SURROUNDING AREAS OF SKIN TWICE A DAY FOR 2 WEEKS. USE WITH BETAMETHASONE 0 05/27/[address] (VOLTAREN) 75 mg EC tablet Active esomeprazole DR (NexIUM) 20 mg capsule Take 20 mg by mouth. Active FLUZONE HIGH-DOSE 2017-, PF, 180 mcg/0.5 mL syringe TO BE ADMINISTERED BY PHARMACIST FOR IMMUNIZATION 0 07/09/20 18 Active hydroCHLOROthiazid e (HYDRODIURIL) 25 mg tablet Take 25 mg by mouth. Active meloxicam (MOBIC) 15 mg tablet Take 15 mg by mouth. 02/13/20 18 Active metoprolol XL (TOPROL-XL) 25 mg 24 hr tablet Take 25 mg by mouth daily. 1 07/27/20 18 Active nitroglycerin (NITROSTAT) 0.[address] 1 TABLET UNDER TONGUE EVERY 5 MINUTES NEEDED FOR CHEST PAIN (MAXIMUM OF 3 DOSES) 2 07/16/20 18 Active ondansetron ODT (ZOFRAN-ODT) 4 mg disintegrating tablet Take 4 mg by mouth every 6 hours. 09/07/[address] (PROTONIX) 40 mg EC tablet Take 40 mg by mouth daily. 1 07/27/20 18 Active PNEUMOVAX 23 25 mcg/0.5 mL syringeIndications :Prevention of Streptococcus Pneumoniae Infection TO BE ADMINISTERED BY PHARMACIST FOR IMMUNIZATION 0 05/23/20 18 Active traMADol (ULTRAM) 50 mg tablet Take 50 mg by mouth every 6 hours. 07/09/20 16 Active SHINGRIX, PF, 50 mcg/0.5 mL vaccine TO BE ADMINISTERED BY PHARMACIST FOR IMMUNIZATION 1 06/09/20 18 Active ascorbic acid (VITAMIN C) 500 mg tablet,chewable Acti ve cholecalciferol (VITAMIN D-3) 2,000 unit capsule Take 2,000 Units by mouth. Active cholecalciferol (VITAMIN D-3) 50,000 unit capsule Take 1 pill every 2 weeks for Vitamin D deficiency. Take in addition to daily maintenance dose. 04/17/20 17 Active aspirin 81 mg chewable tablet Take 81 mg by mouth daily Active atorvastatin (LIPITOR) 10 mg tablet Take by mouth Active calcium carbonate-vitamin D3 1,500 mg (600 mg elemental)-400 unit tablet,chewable Take 2 tablets by mouth daily 06/20/20 17 Active clopidogrel bisulfate, bulk, 100 % powder Take by mouth Act darian loratadine, bulk, 100 % powder Take by mouth Act darian metoprolol XL (TOPROL-XL) 100 mg 24 hr tablet Take by mouth Act darian amLODIPine (NORVASC) 2.5 mg tablet Take 1 tablet by mouth daily 02/27/20 21 Active cephalexin (KEFLEX) 500 mg capsule 07/03/20 22 Active clobetasoL (TEMOVATE) 0.05 % cream daily as needed 08/23/20 20 Active levothyroxine (SYNTHROID) 25 mcg tablet Take 25 mcg by mouth daily 03/18/20 20 Active levothyroxine (SYNTHROID) 25 mcg tablet Take 25 mcg by mouth every morning 04/24/20 22 Active meclizine (ANTIVERT) 12.5 mg tablet Take 6.25 mg by mouth 2 (two) times a day 05/22/20 22 Active cephalexin (KEFLEX) 500 mg capsuleIndications :Toe injury, right, initial encounter Pt to take cephalexin 500mg PO TID for 7 days 15 capsule 07/05/20 22 Active Active Problems No known active problems Surgical History Surgery Date Site/Laterality Comments CARDIAC CATHETERIZATION KNEE SURGERY Medical History Medical History Date Comments Hypertension Hypercholesteremia Gastric reflux Kidney stone Family History Medical History Relation Name Comments Alzheimer's disease Father Family h istory of Alzheimer's disease - (Added by TW Conv) Heart attack Father Family history of myocardial infarction - (Added by TW Conv) Colon cancer Mother Family history of colon cancer - (Added by TW Conv) Stroke Mother Family history of cerebrovascular accident - (Added by TW Conv) Breast cancer Sister Family history of malignant neoplasm of breast - (Added by TW Conv) Relation Name Status Comments Father Mother Sister Social History Tobacco Use Types Packs/Day Years Used Date Smoking Tobacco: Never Tobacco Cessation:Counseling Given: Not Answered Comments Unknown Sex and Gender Information Value Date Recorded Sex Assigned at Not on file 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 Gender Identity Not on file Sexual Orientation Not on file Obstetrics History Last Filed Vital Signs Vital Sign Reading Time Taken Comments Blood Pressure 159/88 07/05/2022 6:44 PM CDT Pulse 64 07/05/2022 6:44 PM CDT Temperature 36.9 C (98.5 F) 07/05/2022 6:44 PM CDT Respiratory Rate 16 07/05/2022 6:44 PM CDT Oxygen Saturation 95% 07/05/2022 6:44 PM CDT Inhaled Oxygen Concentration - - Weight 113.7 kg (250 lb 9.6 oz) 07/05/2022 6:44 PM CDT Height 165.1 cm (5' 5 ) 07/05/2022 6:44 PM CDT Body Mass Index 41.7 07/05/2022 6:44 PM CDT Plan of Treatment Health Maintenance Due Date Last Done Comments Breast Cancer Screening-Mammogram 1952 Colon Cancer Screening-Colonoscopy 1950 Depression Screening 1952 Fall Risk Assessment 1950 Hepatitis C Screening 1950 Osteoporosis Screening-Bone Density Scan 1952 Hepatitis B Screening 1970 Well Visit 65+ 2017 Zoster Vaccine (2 of 3) 01/22/2019 11/27/2018, 10/20 Covid-19 Vaccine (2023-2 5 season) 2024 03/04/2022, 08/23/2021, 01/02/2021, Additional history exists Influenza Vaccine (#1) 2024 , 07/24/2020, 07/09/2018, Additional history exists DTaP/Tdap/Td Vaccine (2 - Td or Tdap) 02/05/2029 02/05/2019 Pneumococcal vaccine 65+ Completed 05/23/2018, 03/21 [place] [address] [facility] [place] [address] Care Teams Parachute Folder Relationship Specialty Start Date End Date Laurie Strickland MD PCP - General 04/15/17
--- OUTSIDE RECORDS SUMMARY | 2024-12-10 00:46 | XMS_ITS | Encounter Summary ---
Author Organization [facility] Address [facility] [place] [address] Care Team Providers Care Arcade Technician Name Role Phone Chang Jaimes MD Unavailable [phone] Noelle Tate Primary Care Provider [phone] Encounter Details Date Type Department Care Team (Late Contact Info) Description 10/30/2021 [facility] [address] Cecy Mayers MA Social History Tobacco Use Types Packs/Day Years Used Date Smoking Tobacco: Never Smokeless Tobacco: Never Alcohol Use Standard Drinks/Week Comments No 0 (1 standard drink = 0.6 oz pur e alcohol) PHQ-2 Answer Date Recorded PHQ-2 Score - If the patient scores above 3, please move on to questions 3-9 0 12/22/2020 Comments No Sex and Gender Information Value Date Recorded Sex Assigned at Female 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 [place] [address] 05/23/2025 1:20 PM CDT Office Visit [facility] [address] [address] Oswald Carrero DO [address] [place] [address] documented as of this encounter Procedures Procedure Name Priority Date/Time Associated Diagnosis Comments THYROID STIM HORMONE TSH Routine 01/10/2021 VITAMIN D, 25 OH Routine 01/10/2021 CREATININE Routine 01/10/2021 documented in this encounter Results * CREATININE (01/10/2021) CREATININE S/P/B 0.70 0.5 - 1.0 EGFR NON-AFR. AMER. >60 <=90 01/10/2021 [facility] Final Result * THYROID STIM HORMONE, TSH (01/10/2021) TSH 1.350 01/10/2021 [facility] Final Result * VITAMIN D, 25 OH (01/10/2021) VITAMIN D 25 HYDROXY S/P/B 41 01/10/2021 [facility] Final Result documented in this encounter Visit Diagnoses Not on filedocumented in this encounter Care Teams Arcade Technician Relationship Specialty Start Date End Date Noelle Tate FNP [facility] [address] [place] [address] PCP - General Nurse Practitioner Family 01/04/21 Chang Jaimes MD [address] [facility] [address] [place] [address] El Door Person CARDIOVASCULAR DISEASE 05/20/17 documented as of this encounter
--- OUTSIDE RECORDS SUMMARY | 2024-12-10 00:46 | XMS_ITS | Encounter Summary ---
Author Organization [facility] Address [address] [place] [address] Care Team Providers Care Scorekeeper Name Role Phone Og Phillip MD Unavailable [phone] Noelle Tate APRN-HELMET BINDER Primary Care Provider Kleber Sanderson MD Unavailable [phone] Christine Witt Primary Care Provider [phone] Encounter Details Date Type Department Care Team (Late st Contact Info) Description 05/29/2015 Therapy Visit [facility] Orthopedics [id number] [address] [place] [id number] [address] Social History Tobacco Use Types Packs/Day Years Used Date Smoking Tobacco: Never Alcohol Use Standard Drinks/Week Comments Yes 0 (1 standard drink = 0.6 oz pur e alcohol) Sex and Gender Information Value Date Recorded Sex Assigned at Not on file Gender Identity Not on file Sexual Orientation Not on file documented as of this encounter Functional Status Functional Status Response Date of Assess ment Is person deaf or have serious hearing difficult y? No 04/17/2015 Is person blind or have serious difficulty seein g? No 04/17/2015 Does person have serious dif ficulty walking/climbing stairs? No 04/17/2015 Does person have difficulty dressing/bathing? No 04/17/2015 Does person have difficulty doing errands alone? No 04/17/2015 Cognitive Status Response Date of Assessm ent Does person have difficulty concentrating/remembering/making decisions? No 04/17/2015 documented as of this encounter Plan of Treatment Not on file documented as of this encounter Visit Diagnoses Not on filedocumented in this encounter Care Teams Scorekeeper Relationship Specialty Start Date End Date Noelle Tate, ASSIGNMENT CLERK-HELMET BINDER [address] [place] [address] PCP - General 05/10/21 12/03/23 Christine Witt [address] [place] [id number] PCP - General 12/04/23 [place] [address] [facility] [address] [place] [address] Orthopedic Surgery 02/14/15 Kleber Sanderson MD [address] [facility] [address] [place], [place] [id number] Neurological Surgery 12/04/23 documented as of this encounter
--- OUTSIDE RECORDS SUMMARY | 2024-12-10 00:46 | XMS_ITS | Encounter Summary ---
Author Organization [facility] Address [facility] [place] [address] Care Team Providers Care Computer Security Coordinator Name Role Phone Chang Jaimes MD Unavailable [phone] Mayo Guzman MD Primary Care Provider [phone] Chang Jaimes MD Unavailable [phone] Serena Villa MD Primary Care Pro vider Noelle Tate Primary Care Provider [phone] Encounter Details Date Type Department Care Team (Late st Contact Info) Description 06/17/2017 Abstract [facility] AT [address] [address] Cecy Mayers MA Social History Tobacco Use Types Packs/Day Years Used Date Smoking Tobacco: Never Smokeless Tobacco: Never Alcohol Use Standard Drinks/Week Comments No 0 (1 standard drink = 0.6 oz pur e alcohol) Comments Unknown Sex and Gender Information Value Date Recorded Sex Assigned at Female 11/19/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 Sex Female 2:32 AM CDT Gender Identity Not on file Sexual Orientation Not on file Occupation Industry Job Start Date Job End Date Not on file Not on file Not on file Not on file documented as of this encounter Progress Notes * ZAC Chauhan-BC - 06/17/2017 10:31 AM CDT PG pt send letter continue current meds documented in this encounter Plan of Treatment Upcoming Encounters Date Type Department Care Team (Late st Contact Info) Description 2025 11:15 AM CDT Office Visit [facility] [address] [place] [phone] Chang Jaimes MD [address] [place] [address] 05/23/2025 1:20 PM CDT Office Visit [facility] [address] [place] [address] Oswald Carrero DO [address] [place], [place] [id number] documented as of this encounter Procedures Procedure Name Priority Date/Time Associated Diagnosis Comments CBC (OUTSIDE LAB) Routine 08/05/2018 BASIC METABOLIC PANEL Routine 08/05/2018 LIPID PANEL Routine 08/05/2018 HEPATIC FUNCTION PANEL Routine 08/04/2018 CBC (OUTSIDE LAB) Routine 01/20/2018 COMPREHENSIVE METABOLIC PANEL Routine 01/20/2018 LIPID PANEL Routine 01/20/2018 VITAMIN D, 25 OH Routine 01/20/2018 HCT (ABSTRACTED) Routine 06/16/2017 BUN (OUTSIDE LAB) Routine 06/16/2017 CREATININE Routine 06/16/2017 documented in this encounter Results * LIPID PANEL (08/05/2018) Pathologist [facility] CHOLESTEROL 95 HDL 34 TRIGLYCERIDES 66 LDL (CALCULATED) 41 08/05/2018 [facility] Final Result * BASIC METABOLIC PANEL (08/05/2018) Pathologist [facility] SODIUM S/P/B 140 POTASSIUM S/P/B 4.0 CO2 28 CHLORIDE S/P/B 105 GLUCOSE 99 mg/dL CALCIUM S/P/B 9.1 BUN 19 CREATININE S/P/B 0.8 0.5 - 1.0 EGFR NON-AFR. AMER. >60 <=90 08/05/2018 [facility] Final Result * CBC (OUTSIDE LAB) (08/05/2018) Pathologist [facility] WBC 4.8 HGB 12.9 HCT 39 PLT 173 08/05/2018 [facility] Doc [facility] Abstract LAB-OUTSIDE/ABSTRACTED Final Result * HEPATIC FUNCTION PANEL (08/04/2018) Pathologist [facility] ALBUMIN S/P/B 4.2 3.5 - 5.0 ALKALINE PHOSPHATASE S/P/B 89 ALT 35 AST 30 BILIRUBIN TOTAL S/P/B 0.7 TOTAL PROTEIN S/P/B 7.0 08/04/2018 [facility] Doc [facility] Final Result * VITAMIN D, 25 OH (01/20/2018) Pathologist [facility] VITAMIN D 25 HYDROXY S/P/B 43 01/20/2018 [facility] Final Result * CBC (OUTSIDE LAB) (01/20/2018) Pathologist [facility] WBC 5.6 HGB 14.2 HCT 42.1 PLT 189 01/20/2018 us Doc [facility] Abstract LAB-OUTSIDE/ABSTRACTED Final Result * COMPREHENSIVE METABOLIC PANEL (01/20/2018) Pathologist [facility] SODIUM S/P/B 142 POTASSIUM S/P/B 4.6 CO2 29 CHLORIDE S/P/B 105 GLUCOSE 98 mg/dL CALCIUM S/P/B 10 BUN 23 CREATININE S/P/B 0.89 0.5 - 1.0 EGFR AFR. AMER. 79 <=90 EGFR NON-AFR. AMER. 68 <=90 ALKALINE PHOSPHATASE S/P/B 73 ALT 14 AST 15 BILIRUBIN TOTAL S/P/B 0.6 ALBUMIN S/P/B 4.1 3.5 - 5.0 TOTAL PROTEIN S/P/B 6.9 01/20/2018 [facility] Doc [facility]AT[facility] Final Result * LIPID PANEL (01/20/2018) Pathologist [facility] CHOLESTEROL 134 HDL 52 TRIGLYCERIDES 95 NON HDL CHOLESTEROL 82 LDL (CALCULATED) 64 01/20/2018 [facility] Doc [facility] Final Result * HCT (ABSTRACTED) (06/16/2017) Pathologist [facility] HCT 42.5 06/16/2017 us Doc [facility] Abstract LAB-OUTSIDE/ABSTRACTED Final Result * CREATININE (06/16/2017) Pathologist [facility] CREATININE S/P/B 0.92 0.5 - 1.0 EGFR NON-AFR. AMER. 76 <=90 EGFR AFR. AMER. 65 <=90 06/16/2017 us Doc [facility] Final Result * BUN (OUTSIDE LAB) (06/16/2017) BUN 28 06/16/2017 [facility] Doc [facility] Abstract LAB-OUTSIDE/ABSTRACTED Final Result documented in this encounter Visit Diagnoses Not on filedocumented in this encounter Additional Health Concerns Infection Onset Date Last Indicated Resolved Time COVID-19 Rule Out 02/03/2021 02/03/2021 02/04/2021 2:06 PM CDT documented as of this encounter Care Teams Computer Security Coordinator Relationship Specialty Start Date End Date Mayo Guzman MD [address] [place] [address] PCP - General FAMILY PRACTICE 05/20/17 09/18/19 Chang Jaimes MD [address] [place] [address] [facility] Att[facility] Provider 10/20/15 10/18/20 Serena Villa MD [address] [place] [address] PCP - General FAMILY PRACTICE 09/19/19 01/03/21 Noelle Tate FNP [address] [place] [address] PCP - General Nurse Practitioner Family 01/04/21 Chang Jaimes MD [address] [place], [place] [address] El Roping Machine Tender CARDIOVASCULAR DISEASE 05/20/17 documented as of this encounter
--- OUTSIDE RECORDS SUMMARY | 2024-12-10 00:46 | XMS_ITS | Clinical Summary ---
Author Organization [facility] Address [address] [place] [address] Care Team Providers Care Mcat Tutor Name Role Phone Chang Jaimes MD Unavailable [phone] Noelle Tate Primary Care Provider [phone] Allergies Active Allergy Reactions Criticality Noted Date Comments Iodine Hives 03/29/2016 Medications Lysine Acetate 500 MG Tab Take 1 tablet by mouth 2 (two) times daily. 7 Active Calcium Carbonate-Aneta min D 600-400 MG-UNIT Chew Tab Chew 2 tablets by mouth daily. 7 Active Cholecalcifero l 50 MCG (1999 UT) Tab Take 2 tablets by mouth daily. 7 Active vitamin C 500 MG tablet Take 1 tablet (500 mg total) by mouth daily. 8 Active [facility] ASPIRIN CHILD 81 MG chewable tablet CHEW 1 TABLET (81 MG TOTAL) BY MOUTH DAILY. 90 tablet 8 Active Loratadine 10 MG Cap Take 1 capsule by mouth daily as needed. Active levothyroxine 25 MCG tablet Take 1 tablet (25 mcg total) by mouth daily. 0 Active Magnesium 400 MG Cap Take 1 capsule by mouth daily. 2 Active nitroglycerin (NITROSTAT) 0.[address] 1 tablet (0.4 mg total) under the tongue every 5 (five) minutes as needed for Chest Pain. Maximum of 3 doses. If taking 3rd dose call 911 25 tablet 1 12/11/202 3 Active terbinafine (LAMISIL) 250 MG tablet 1 tablet (250 mg total). 1 WEEK PER MONTH 4 Active atorvastatin (LIPITOR) 40 MG tablet TAKE 1 TABLET BY MOUTH NIGHTLY AT BEDTIME 90 tablet 1 5 Active atorvastatin (LIPITOR) 40 MG tablet Take 1 tablet (40 mg total) by mouth nightly at bedtime. 90 tablet 4 11/25/19 25 Discontinued Active Problems Problem Noted Date Diagnosed Date Morbid (severe) obesity due to excess calories ([facility]) 02/07/2023 Body mass index (BMI) 40.0-44.9, adult ([facility]) 02/07/2023 PIO on CPAP 09/25/2020 Nocturia 09/25/2020 Chest pain 11/18/2019 Class 3 severe obesity due t o excess calories without serious comorbidity with body mass index (BMI) of 40.0 to 44.9 in adult ([facility]) 10/18/2019 Dyslipidemia 01/08/2018 Coronary artery disease invo lving [place] coronary artery of [place] heart without angina pectoris 07/03/2017 Dizziness 05/27/2017 Presence of both artificial knee joints 09/09/20 16 Osteoarthrosis involving lower leg 05/02/2015 Overview (11/18/2019): Overview: 2015 IMO Updt S/P knee replacement 05/02/2015 Essential (primary) hypertension Atypical chest pain Encounters Date Type Department Care Team Description 12/02/2024 Telephone [facility] [address] Chang Jaimes MD Surgical Clearance 11/23/2024 Scan HEALTH INFO SRVCS Scanned, [facility] 10/22/[address] [facility] [address] [place] [address] Oswald Carrero DO Appointment Request 10/21/2024 10:00 AM SHAREPOINT CONSULTANT Office Visit [facility] [address] [address] Chinyere Gómez, CHLORINATOR Coronary Artery Disease (6mo); Hypertension; Lipids from Last 3 Months Immunizations Name Administration Dates Next Due Fluzone 6 Months+ Quad (0.5 mL Prefilled Syringe ) 07/21/2019 Influenza (Generic) 07/27/2015 Influenza Adult (Generic) 07/09/2018,07/10/2017 Pneumococcal (Pneumovax 23) 05/23/2018 Shingrix 11/27/2018 Tdap (Boostrix) 02/05/2019 Zoster (Zostavax) [address] Unt/0.65Ml 10/20/2017 Family History Medical History Relation Comments Heart Attack Father Stent Cardiac Father Stroke Mother Relation Status Comments Father (Age 89) Maternal Grandfather Maternal Grandmother Mother Paternal Grandfather Paternal Grandmother Social History Tobacco Use Types Packs/Day Years Used Date Smoking Tobacco: Never Smokeless Tobacco: Never Tobacco Cessation:Counseling Given: Yes Alcohol Use Standard Drinks/Week Comments No 0 (1 standard drink = 0.6 oz pur e alcohol) PHQ-2 Answer Date Recorded PHQ-2 Score - If the patient scores above 3, please move on to questions 3-9 0 12/22/2020 Comments No Sex and Gender Information Value Date Recorded Sex Assigned at Female 11/19/2024 3:58 PM SHAREPOINT CONSULTANT Legal Sex Female 2:32 AM CDT Gender Identity Not on file Sexual Orientation Not on file Occupation Industry Job Start Date Job End Date Not on file Not on file Not on file Not on file Last Filed Vital Signs Vital Sign Reading Time Taken Comments Blood Pressure 132/84 10/21/2024 9:43 AM SHAREPOINT CONSULTANT Pulse 75 10/21/2024 9:43 AM SHAREPOINT CONSULTANT Temperature 36.4 C (97.5 F) 04/12/2024 11:25 AM CDT Respiratory Rate 18 04/12/2024 11:25 AM CDT Oxygen Saturation 95% 10/21/2024 9:43 AM SHAREPOINT CONSULTANT Inhaled Oxygen Concentration - - Weight 113 kg (249 lb 3.2 oz) 10/21/2024 9:43 AM SHAREPOINT CONSULTANT Height 162.6 cm (5' 4 ) 10/21/2024 9:43 AM SHAREPOINT CONSULTANT Body Mass Index 42.78 10/21/2024 9:43 AM SHAREPOINT CONSULTANT Plan of Treatment Upcoming Encounters Date Type Department Care Team (Late st Contact Info) Description 2025 11:15 AM CDT Office Visit [facility] [address] [place] [phone] Chang Jaimes MD [address] [place], [place] [id number] 05/23/2025 1:20 PM CDT Office Visit [facility] [place] [address] [place] [address] Oswald Carrero DO [address] [place], [place] [id number] Health Maintenance Due Date Last Done Comments Colorectal Cancer Screening Colonoscopy (10 Years) 1952 Hepatitis C 1970 Mammogram Screening 1992 RSV Immunization or 60+ Years (1 - Risk 60-74 years 1-dose series) 2012 Annual Medicare Wellness Visit 2017 Dexa Scan (General) 2017 Zoster Vaccines (3 of 3) 01/22/2019 11/27/2018, 10/2017 Pneumococcal Vaccine: 65+ Years (2 of 2 - PCV) 05/23/2019 05/23/2018 ASCVD LDL 02/18/2024 02/17/2023, 10/20, 12/25/2020, Additional history exists COVID-19 Vaccine ( season) 2024 Influenza Adult (#1) 2024 07/21/2019, 07/09/2018, 07/10/2017, Additional history exists PHQ-2 (Physician [place]) 10/20/2024 DTaP, Tdap and Td Vaccines (2 - Td or Tdap) 02/05/2029 02/05/2019 Meningococcal B Vaccine Aged Out No l onger eligible based on patient's age to complete this topic Meningococcal Vaccine Aged Out No nitin sivakumar eligible based on patient's age to complete this topic RSV Immunizations Under 20 Months Aged Out No longer eligible based on patient's age to complete this topic Procedures Procedure Name Priority Date/Time Associated Diagnosis Comments LIPID PANEL Routine 02/17/2023 11:54 AM CDT Mixed hyperlipidemia from Last 3 Months or Most Recently Relevant to Health Maintenance Results * LIPID PANEL (02/17/2023 11:54 AM CDT) CHOLESTEROL 125 <200.0 MG/DL 02/17/2023 12:39 PM CDT [facility] TRIGLYCERIDES 89 <150 MG/DL 02/17/2023 12:39 PM CDT [facility] HDL 52 >40.0 MG/DL 02/17/2023 12:39 PM T [facility] LDL (CALCULATED) 55 <100 MG/DL 02/18/20 12:39 PM T [facility] NON HDL CHOLESTEROL 73 <130 MG/DL 02/17 12:39 PM T [facility] CHOL/HDL RATIO 2.4 0.0 - 4.5 02/17/2023 12:39 PM T [facility] VLDL CALCULATION 18 5 - 55 MG/DL 02/17/2023 12:39 PM T [facility] LIPID INTERPRETATION 02/17/2023 12:39 PM T [facility] Comment: NIH CONCENSUS REPORT RECOMMENDATIONS: ADULT CHILD LOW RISK: CHOLESTEROL <200 <170 TRIGLYCERIDE <150 --- HDL >=60 --- LDL <100 <110 BORDERLINE: CHOLESTEROL 200-239 170-199 TRIGLYCERIDE 150-199 --- HDL 40-59 --- LDL 100-159 110-129 HIGH RISK: CHOLESTEROL >=240 >=200 TRIGLYCERIDE >=200 --- HDL <40 --- LDL >=160 >=130 02/17/2023 11:5 4 AM CDT us Chinyere Gómez CHLORINATOR LABORATORY Final Result [facility] [address] [place] [address], from Last 3 Months or Most Recently Relevant to Health Maintenance Insurance MEDICARE [facility] Advance Directives * Full Code (Latest Code Status on File) Date Activated Date Inactivated Comments 11/18/2019 5:38 AM 11/18/2019 6:01 PM Care Teams Mcat Tutor Relationship Specialty Start Date End Date Noelle Tate FNP [facility]. [address] [place] [address] PCP - General Nurse Practitioner Family 01/04/21 Chang Jaimes MD [facility] [address] [place] [address] El Fishing Manager CARDIOVASCULAR DISEASE 05/20/17
--- OUTSIDE RECORDS SUMMARY | 2024-12-10 00:46 | XMS_ITS | Encounter Summary ---
Author Organization [facility] Address [facility] [place] [address] Care Team Providers Care Chinese Language Professor Name Role Phone Chang Jaimes MD Unavailable [phone] Mayo Guzman MD Primary Care Provider [phone] Chang Jaimes MD Unavailable [phone] Serena Villa MD Primary Care Pro vider Noelle Tate Primary Care Provider [phone] Encounter Details Date Type Department Care Team (Late st Contact Info) Description 10/23/2018 [facility] at [address] [address] Ccey Mayers MA Social History Tobacco Use Types Packs/Day Years Used Date Smoking Tobacco: Never Smokeless Tobacco: Never Alcohol Use Standard Drinks/Week Comments No 0 (1 standard drink = 0.6 oz pur e alcohol) Comments Unknown Sex and Gender Information Value Date Recorded Sex Assigned at Female 11/19/2024 3:58 PM LABOR RELATIONS REPRESENTATIVE Legal Sex Female 2:32 AM CDT Gender Identity Not on file Sexual Orientation Not on file Occupation Industry Job Start Date Job End Date Not on file Not on file Not on file Not on file documented as of this encounter Progress Notes * ZAC Chauhan-JARVIS - 10/23/2018 9:41 AM CST Labs reviewed. No action needed prior to upcoming procedure. R RELATIONS REPRESENTATIVE documented in this encounter Plan of Treatment Upcoming Encounters Date Type Department Care Team (Late st Contact Info) Description 2025 11:15 AM CDT Office Visit [facility] [address] [place] [phone] Chang Jaimes MD [address] [facility] [address] [place] [address] 05/23/2025 1:20 PM CDT Office Visit [facility] Pulmonology Specialty [facility] [address] [place] [address] Oswald Carrero DO [address] [place], [place] [phone] documented as of this encounter Procedures Procedure Name Priority Date/Time Associated Diagnosis Comments BUN (OUTSIDE LAB) Routine 11/02/2018 CREATININE Routine 11/02/2018 PROTIME (OUTSIDE LAB) Routine 10/22/2018 CBC (OUTSIDE LAB) Routine 10/22/2018 BASIC METABOLIC PANEL Routine 10/22/2018 documented in this encounter Results * CREATININE (11/02/2018) CREATININE S/P/B 0.91 0.5 - 1.0 EGFR NON-AFR. AMER. 66 <=90 EGFR AFR. AMER. 76 <=90 11/02/2018 us Doc [facility] Final Result * BUN (OUTSIDE LAB) (11/02/2018) BUN 23 11/02/2018 us Doc [facility]-OUTSIDE/ABSTRACTED Final Result * CBC (OUTSIDE LAB) (10/22/2018) WBC 6.2 HGB 14.4 HCT 42.8 PLT 185 10/22/2018 us Doc [facility]-OUTSIDE/ABSTRACTED Edite d Result - Final * PROTIME (OUTSIDE LAB) (10/22/2018) PROTIME 10.7 INR 1.0 10/22/2018 us Doc [facility]-OUTSIDE/ABSTRACTED Final Result * BASIC METABOLIC PANEL (10/22/2018) SODIUM S/P/B 142 POTASSIUM S/P/B 4.7 CO2 31 CHLORIDE S/P/B 107 GLUCOSE 78 mg/dL CALCIUM S/P/B 10.0 BUN 23 CREATININE S/P/B 0.86 0.5 - 1.0 EGFR AFR. AMER. 82 <=90 EGFR NON-AFR. AMER. 70 <=90 10/22/2018 us Doc [facility] Final Result documented in this encounter Visit Diagnoses Not on filedocumented in this encounter Additional Health Concerns Infection Onset Date Last Indicated Resolved Time COVID-19 Rule Out 02/03/2021 02/03/2021 02/04/2021 2:06 PM CDT documented as of this encounter Care Teams Chinese Language Professor Relationship Specialty Start Date End Date Mayo Guzman MD [address] [place] [address] PCP - General FAMILY PRACTICE 05/20/17 09/18/19 Chang Jaimes MD [address] [facility] [address] [place] [address] PCP - [facility] Attributed Provider 10/20/15 10/18/20 Serena Villa MD [address] [place] [address] PCP - General FAMILY PRACTICE 09/19/19 01/03/21 Noelle Tate FNP [address] [place] [address] PCP - General Nurse Practitioner Family 01/04/21 Chang Jaimes MD [address] [facility] [address] [place] [address] El Penology Teacher CARDIOVASCULAR DISEASE 05/20/17 documented as of this encounter
--- OUTSIDE RECORDS SUMMARY | 2024-12-10 00:46 | XMS_ITS | Referral Summary ---
Author Organization [facility] [address] Address [address] [place] [address] Care Team Providers Care Operational Test Mechanic Name Role Phone Laurie Strickland MD Primary Care Provider [phone] Allergies Active Allergy Reactions Criticality Noted Date [...] Active Active Problems No known active problems Social History Tobacco Use Types Packs/Day Years Used Date Smoking Tobacco: Never Tobacco Cessation:Counseling Given: Not Answered Comments Unknown Sex and Gender Information Value Date Recorded Sex Assigned at Not on file Legal Sex Female 12:17 AM GREASE MAN Gender Identity Not on file Sexual Orientation Not on file Last Filed Vital Signs [...] 07/05/2022 6:44 PM CDT Plan of Treatment Not on file Insurance MEDICARE [facility] Care Teams Operational Test Mechanic Relationship Specialty Start Date End Date Laurie Strickland MD PCP - General 04/15/17
--- OUTSIDE RECORDS SUMMARY | 2024-12-10 00:46 | XMS_ITS | Encounter Summary ---
Author Organization [facility] Address [address] [place] [address] Care Team Providers Care Vine Pruner Name Role Phone Og Phillip MD Unavailable [phone] Noelle Tate APRN-COPYIST Primary Care Provider Kleber Sanderson MD Unavailable [phone] Christine Witt Primary Care Provider [phone] Encounter Details Date Type Department Care Team (Late st Contact Info) Description 06/19/2015 Therapy Visit [facility] [address] [address] [place] [address] [address] Social History Tobacco Use Types [...] on filedocumented in this encounter Care Teams Vine Pruner Relationship Specialty Start Date End Date Noelle Tate, ELDERLY SITTER-COPYIST [address] [place] [address] PCP - General 05/10/21 12/03/23 Christine Witt [address] [place] [id number] PCP - General 12/04/23 [place] [address] [facility] [address] [place] [address] Orthopedic Surgery 02/14/15 Kleber Sanderson MD [address] [facility] [address] [place], [place] [phone] Neurological Surgery 12/04/23 documented as of this encounter
--- OUTSIDE RECORDS SUMMARY | 2024-12-10 00:46 | XMS_ITS | Encounter Summary ---
Author Organization [facility] Address [address] [facility] [place] [address] Care Team Providers Care Hollow Handle Knife Assembler Name Role Phone gO Phillip MD Unavailable Noelle Tate APRN-FLOW FLOOR ATTENDANT Primary Care Provider Kleber Sanderson MD Unavailable Christine Witt Primary Care Provider [phone] Encounter Details Date Type Department Care Team (Late st Contact Info) Description 05/01/2015 Therapy Visit [facility] [address] [address] [place] [address] [address] Social History Tobacco Use Types [...] on filedocumented in this encounter Care Teams Hollow Handle Knife Assembler Relationship Specialty Start Date End Date Noelle Tate, EXPERIENTIAL THERAPIST-FLOW FLOOR ATTENDANT [address] [place] [address] PCP - General 05/10/21 12/03/23 Christine Witt [address] [place] [id number] PCP - General 12/04/23 [place] [address] [facility] [address] [place] [address] Orthopedic Surgery 02/14/15 Kleber Sanderson MD [address] [facility] [address] [place], [place] [address] Neurological Surgery 12/04/23 documented as of this encounter
--- OUTSIDE RECORDS SUMMARY | 2024-12-10 00:47 | XMS_ITS | Clinical Summary ---
Author Organization [facility] Address [address] [facility] [place] [address] Care Team Providers Care Tele Rn Name Role Phone Og Phillip MD Unavailable [phone] Kleber Sanderson MD Unavailable Christine Witt Primary Care Provider [phone] Source Comments [facility],non-owned Affiliates and Associated Physician Practices is amultiple site organization consisting of ambulatory clinics and hospital sitesin [place], [place], [place] and [place]. This disclosure is being madepursuant to the Care Everywhere program and may not contain all information available regarding this patient. Last updated 18.[facility] Allergies Active Allergy Reactions Criticality Noted Date Comments Iodine Anaphylaxis High 07/03/2010 HIVES WITH IV CONTRAST Medications * Be aware that medications may not be up to date on this document. Alwaysverify current medications with the patient. Medication Sig Dispensed Refills Start Date End Date Status Vitamin D3 (CHOLECALCIFEROL) 2000 UNITS CAPS capsule Take 1 (one) capsule by mouth once daily Active ascorbic acid (Vitamin C) 500 MG tablet Take 1 (one) tablet by mouth once daily Active aspirin (Aspirin) 81 MG chew tablet Take 1 (one) tablet by mouth once daily Active atorvastatin (Lipitor) 40 MG tablet Take 1 (one) tablet by mouth once daily 03/03/2023 Active clobetasol (Temovate) 0.05 % cream APPLY A THIN LAYER TO AFFECTED AREA TWICE DAILY FOR 7 DAYS. (VULVA) 04/08/2023 Active levothyroxine (Synthroid) 25 MCG tablet Take 1 (one) tablet by mouth every morning 07/06/2023 Active Loratadine 10 MG Take 1 capsule by mouth every 24 hours as needed Active nitroGLYCERIN (Nitrostat) 0.[address] 1 TABLET UNDER TONGUE EVERY 5 MINS, UP TO 3 DOSES NEEDED FOR CHEST PAIN 09/29/2023 Active pantoprazole EC (Protonix) 40 MG tablet Take 1 (one) tablet by mouth once daily 05/30/2023 Active terbinafine (LamISIL) 250 MG tablet Take 1 (one) tablet by mouth once daily One week out of every month 01/29/2023 Active Active Problems Problem Noted Date Diagnosed Date Presence of both artificial knee joints 09/09/20 16 Osteoarthrosis involving lower leg 05/02/2015 Overview (01/13/2016): 2015 IMO Updt S/P knee replacement 05/02/2015 Family History Medical History Relation Name Comments CAD (Coronary Artery Disease) Father Dementia Father CVA Mother Arthritis - Osteo Sister 1 Cancer - Breast Sister 1 Arthritis - Osteo Sister 2 Relation Name Status Comments Father Mother Sister 1 Alive Sister 2 Alive Social History Tobacco Use Types Packs/Day Years Used Date Smoking Tobacco: Never Smokeless Tobacco: Never Alcohol Use Standard Drinks/Week Comments Not Currently 0 (1 standard drink = 0.6 oz pur e alcohol) occasional Sex and Gender Information Value Date Recorded Sex Assigned at Not on file Gender Identity Not on file Sexual Orientation Not on file Last Filed Vital Signs Vital Sign Reading Time Taken Comments Blood Pressure 164/84 12/04/2023 9:59 AM PAYMASTER OF PURSES Pulse 76 12/04/2023 9:59 AM PAYMASTER OF PURSES Temperature 36.9 C (98.5 F) 01/08/2019 10:08 AM CDT Respiratory Rate 16 01/08/2019 10:08 AM CDT Oxygen Saturation 94% 01/08/2019 10:08 AM CDT Inhaled Oxygen Concentration - - Weight 108.9 kg (240 lb) 12/04/2023 9:59 AM PAYMASTER OF PURSES Height 165.1 cm (5' 5 ) 12/04/2023 9:59 AM PAYMASTER OF PURSES Body Mass Index 39.94 12/04/2023 9:59 AM PAYMASTER OF PURSES Plan of Treatment Health Maintenance Due Date Last Done Comments BONE DENSITY TESTING 1950 COLOGUARD (AGES 45-75) - COLON CA SCREENING 1950 COLON MONITORING 1952 COLONOSCOPY - COLON CA SCREENING 1952 CT COLONOGRAPHY - COLON CA SCREENING 1950 Colorectal Cancer Screening 1950 FIT - COLON CA SCREENING 1950 FLEX SIG - COLON CA SCREENING 1950 MAMMOGRAM 1950 MEDICARE AWV 12 MONTHS 1950 HEPATITIS C SCREENING 03/24/1970 DTAP/TDAP/TD VACCINES (1 - Tdap) 1971 PNEUMOCOCCAL VACCINE 50+ (1 of 1 - PCV) 2002 ZOSTER VACCINE (1 of 2) 2002 COVID-19 VACCINE (1 - ) 06/20/2024 INFLUENZA VACCINE (#1) 2024 9, 07/09/2018, 07/10/2017, Additional history exists DEPRESSION SCREENING 10/20/2024 Respiratory Syncytial Virus (RSV) Vaccine Pt: or over 60 yrs (1 - 1-dose 75+ series) 2027 HEPATITIS B VACCINE Aged Out No longe r eligible based on patient's age to complete this topic HIB VACCINE Aged Out No longer eligi ble based on patient's age to complete this topic HPV VACCINE Aged Out No longer eligi ble based on patient's age to complete this topic MENINGOCOCCAL (Group B) VACCINE Aged Out No longer eligible based on patient's age to complete this topic MENINGOCOCCAL VACCINE Aged Out No nitin sivakumar eligible based on patient's age to complete this topic Medical Devices Implanted Type Area Agricultural Technician Device Identifier Shelf Expiration Date Model / Serial / Lot Alexey Bone Cleves Hv Implanted:Qty: 1 on 04/17/2015 by Og Phillip MD at [facility] Right: Knee [employer] 10/20/2016 [id number] / / [id number] Ins Kn Vangurd Fem Cocr R-Intlok 70mm Implanted:Qty: 1 on 04/17/2015 by Og Phillip MD at [facility] Right: Knee [employer] 03/20/2025 [id number] / / [id number] Ty Tibial I Beam Fix Bar 71mm Implanted:Qty: 1 on 04/17/2015 by Og Phillip MD at [facility] Right: Knee [employer] 02/17/2025 [id number] / / [id number] Butn Pat Arcom Wire Polyeth Xsm 28 X 8 Implanted:Qty: 1 on 04/17/2015 by Og Phillip MD at [facility] Right: Knee [employer] 02/01/2020 [id number] / / [id number] Brdg Tib Karina Stbl 12mm X 71mm Implanted:Qty: 1 on 04/17/2015 by Og Phillip MD at [facility] Right: Knee [employer] 02/23/2020 [id number] / / [id number] Vangrd Ant Stblzd Brg 10mm X 75mm Implanted:Qty: 1 on 09/04/2015 by Og Phillip MD at [facility] Left: Knee [employer] 03/23/2020 [id number] / / [id number] Alexey Bone Cleves Hv Implanted:Qty: 1 on 09/04/2015 by Og Phillip MD at [facility] Left: Knee [facility] 04/18/2017 [id number] / / [id number] Butn Pat Arcom Wire Polyeth Xsm 28 X 8 Implanted:Qty: 1 on 09/04/2015 by Og Phillip MD at [facility] Left: Knee [employer] 07/19/2020 [id number] / / [id number] Ins Kn Vangurd Fem Cocr L-Intlok 70.0mm Implanted:Qty: 1 on 09/04/2015 by Og Phillip MD at [facility] Left: Knee [employer] 08/19/2024 [id number] / / [id number] Ty Tibial I Beam Fix Bar 75mm Implanted:Qty: 1 on 09/04/2015 by Og Phillip MD at [facility] Left: Knee [employer] 11/19/2024 [id number] / / [id number] Advance Directives Documents on File Type Date Recorded Patient Laborer Demolition Expl anation Adv Directive/Living Will/POA 04/24/2015 11:25 PM * Full Code (Latest Code Status on File) Date Activated Date Inactivated Comments 09/04/2015 10:45 AM 09/07/2015 4:32 PM * Full Code Date Activated Date Inactivated Comments 04/17/2015 11:36 AM 04/21/2015 3:21 PM Care Teams Tele Rn Relationship Specialty Start Date End Date Christine Witt [facility] [place] [address] [facility] - General 12/04/23 [place] [address] [facility] [address] [place] [address] Orthopedic Surgery 02/14/15 Kleber Sanderson MD [address] [facility] [address] [place] [address] Neurological Surgery 12/04/23
--- OUTSIDE RECORDS SUMMARY | 2024-12-10 00:47 | XMS_ITS | Referral Summary ---
Author Organization [facility] Address [address] [place] [address] Care Team Providers Care Account Maintenance Representative Name Role Phone Og Phillip MD Unavailable Kleber Sanderson MD Unavailable Christine Witt Primary Care Provider [phone] Source Comments [facility],non-owned Affiliates and Associated Physician Practices is amultiple site organization consisting of ambulatory clinics and hospital sitesin [place], [place], [place] and [place]. This disclosure is being madepursuant to the Care Everywhere program and may not contain all information available regarding this patient. 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 No 09/07/2015 Is person blind or have serious difficulty seein g? No 09/07/2015 Does person have serious dif ficulty walking/climbing stairs? No 09/07/2015 Does person have difficulty dressing/bathing? No 09/07/2015 Does person have difficulty doing errands alone? Yes 09/07/2015 Cognitive Status Response Date of Assessm ent Does person have difficulty concentrating/remembering/making decisions? No 09/07/2015 Plan of Treatment Not on file Medical Devices Implanted Type Area Secondary Teacher Device Identifier Shelf Expiration Date Model / Serial / Lot Alexey Bone Joy Hv Implanted:Qty: 1 on 04/17/2015 by Og Phillip MD at [facility] Right: [employer] 10/20/2016 [id number] / / [id number] Ins Kn Vangurd Fem Cocr R-Intlok 70mm Implanted:Qty: 1 on 04/17/2015 by Og Phillip MD at [facility] Right: [employer]nee [employer] 03/20/2025 [id number] / / [id number] Ty Tibial I Beam Fix Bar 71mm Implanted:Qty: 1 on 04/17/2015 by Og Phillip MD at [facility] Right: [employer]nee [employer] 02/17/2025 [id number] / / [id number] Ruben Velasquez [employer] Wire Polyeth Xsm 28 X 8 Implanted:Qty: 1 on 04/17/2015 by Og Phillip MD at [facility] Right: Knee [employer] 02/01/2020 [id number] / / [id number] Brdg Tib Karina Stbl 12mm X 71mm Implanted:Qty: 1 on 04/17/2015 by Og Phillip MD at [facility] Right: Knee [employer] 02/23/2020 [id number] / / [id number] Vangrd Ant Stblzd Brg 10mm X 75mm Implanted:Qty: 1 on 09/04/2015 by Og Phillip MD at [facility] Left: Knee [employer] 03/23/2020 [id number] / / [id number] Alexey Bone Joy Hv Implanted:Qty: 1 on 09/04/2015 by Og Phillip MD at [facility] Left: Knee [employer] 04/18/2017 [id number] / / [id number] Ruben Slater Wire Polyeth Xsm 28 X 8 Implanted:Qty: 1 on 09/04/2015 by Og Phillip MD at [facility] Left: Knee [employer] 07/19/2020 [id number] / / [id number] Ins Kn Vangurd Fem Cocr L-Intlok 70.0mm Implanted:Qty: 1 on 09/04/2015 by Og Phillip MD at [facility] Left: Knee [employer] 08/19/2024 [id number] / / [id number] Ty Tibial I Beam Fix Bar 75mm Implanted:Qty: 1 on 09/04/2015 by Og Phillip MD at [facility] Left: [employer]nee [employer] 11/19/2024 [id number] / / [id number] Administered Medications Advance Directives Documents on File Type Date Recorded Patient Whip Operator Expl anation Adv Directive/Living Will/POA 04/24/2015 11:25 PM * Full Code (Latest Code Status on File) Date Activated Date Inactivated Comments 09/04/2015 10:45 AM 09/07/2015 4:32 PM * Full Code Date Activated Date Inactivated Comments 04/17/2015 11:36 AM 04/21/2015 3:21 PM Care Teams Account Maintenance Representative Relationship Specialty Start Date End Date Christine Witt [address] [place] [id number] PCP - General 12/04/23 [place] [id number] [facility] [address] [place] [address] Orthopedic Surgery 02/14/15 Kleber Sanderson MD [address] [facility] [address] [place] [address] Neurological Surgery 12/04/23
--- OUTSIDE RECORDS SUMMARY | 2024-12-10 00:47 | XMS_ITS | Continuity of Care Document ---
Author Organization [facility] Address [address] [place] [address] Phone Care Team Providers Care Catalyst Supervisor Name Role Phone Elijah Nino DO Unavailable Unavailable Advance Directives Directive Yes / No Effective Date File Name No Information Encounters Encounter Description Practice Location Reason(s) For Visit Diagnoses Date Provider Providers Copied on Encounter [facility], [address], [place], [place], [id number], [place] tel:[phone] [facility] No Information [facility]ung Gordon. [address] [place], [address], [place]. tel: [phone] Family History Family Member Type Diagnosis Age At Onset No Information Payers Payer name Insurance type Covered republican ID Authoriza timark(s) [employer] SOI CI [id number] Social History Type Description Quantity Date Captured Comments Sex Female Smoking Status No Information Chief Complaint And Reason For Visit No Information Reason For Referral Reason For Referral No Information History Of Present Illness Encounter Date Complaint History Of Prese nt Illness No Information Functional Status Date Functional Assessmen t No Information Instructions Date Instruction Additional Infor mation No Information Assessments Type Assessment Date No Information Patient Care Teams Name Effective Dates (start - stop) Status Members No Information
--- OUTSIDE RECORDS SUMMARY | 2024-12-10 00:47 | XMS_ITS | Patient Health Summary ---
Author Organization [facility] Address [address] [place] [address] Care Team Providers Care Vp Biology Name Role Phone Og Phillip MD Unavailable [phone] Kleber Sanderson MD Unavailable Christine Witt Primary Care Provider [phone] Note from [facility],non-owned Affiliates and Associated Physician Practices is amultiple site organization consisting of ambulatory clinics and hospital sitesin [place], [place], [place] and [place]. This disclosure is being madepursuant to the Care Everywhere program and may not contain all information available regarding this patient. Last updated 18.[facility] Allergies * Iodine(Anaphylaxis) -High Criticality Medications * Be aware that medications may not be up to date on this document. Alwaysverify current medications with the patient. * Vitamin D3 (CHOLECALCIFEROL) 2000 UNITS CAPS capsule Take 1 (one) capsule by mouth once daily * ascorbic acid (Vitamin C) 500 MG tablet Take 1 (one) tablet by mouth once daily * aspirin (Aspirin) 81 MG chew tablet Take 1 (one) tablet by mouth once daily * atorvastatin (Lipitor) 40 MG tablet(Started 03/03/2023) Take 1 (one) tablet by mouth once daily * clobetasol (Temovate) 0.05 % cream(Started 04/08/2023) APPLY A THIN LAYER TO AFFECTED AREA TWICE DAILY FOR 7 DAYS. (VULVA) * levothyroxine (Synthroid) 25 MCG tablet(Started 07/06/2023) Take 1 (one) tablet by mouth every morning * Loratadine 10 MG Take 1 capsule by mouth every 24 hours as needed * nitroGLYCERIN (Nitrostat) 0.4 MG tablet(Started 09/29/2023) PLACE 1 TABLET UNDER TONGUE EVERY 5 MINS, UP TO 3 DOSES NEEDED FOR CHEST PAIN * pantoprazole EC (Protonix) 40 MG tablet(Started 05/30/2023) Take 1 (one) tablet by mouth once daily * terbinafine (LamISIL) 250 MG tablet(Started 01/29/2023) Take 1 (one) tablet by mouth once daily One week out of every month Active Problems Problem Noted Date Diagnosed Date Presence of both artificial knee joints 09/09/20 16 Osteoarthrosis involving lower leg 05/02/2015 S/P knee replacement 05/02/2015 Social History Tobacco [...] Comments Blood Pressure 164/84 12/04/2023 9:59 AM CONSTRUCTION ELECTRICIAN Pulse 76 12/04/2023 9:59 AM CONSTRUCTION ELECTRICIAN Temperature 36.9 C (98.5 F) 01/08/2019 10:08 AM CDT Respiratory Rate 16 01/08/2019 10:08 AM CDT Oxygen Saturation 94% 01/08/2019 10:08 AM CDT Inhaled Oxygen Concentration - - Weight 108.9 kg (240 lb) 12/04/2023 9:59 AM CONSTRUCTION ELECTRICIAN Height 165.1 cm (5' 5 ) 12/04/2023 9:59 AM CONSTRUCTION ELECTRICIAN Body Mass Index 39.94 12/04/2023 9:59 AM CONSTRUCTION ELECTRICIAN Medical Devices Implanted Type Area Best Worker Device Identifier Shelf Expiration Date Model / Serial / Lot Alexey Bone [place] Hv Implanted:Qty: 1 on 04/17/2015 by Og Phillip MD at [facility] Right: Knee [employer] 10/20/2016 [id number] / / [id number] Ins Kn Vangurd Fem Cocr R-Intlok 70mm Implanted:Qty: 1 on 04/17/2015 by Og Phillip MD at [facility] Right: Knee [employer] 03/20/2025 [id number] / / [id number] Ty Tibial I Beam Fix Bar 71mm Implanted:Qty: 1 on 04/17/2015 by Og Phillip MD at [facility] Right: Knee [employer] 02/17/2025 [id number] / / [id number] Butn Pat Arcom Wire Polyeth Xsm 28 X 8 Implanted:Qty: 1 on 04/17/2015 by Og Phillip MD at [facility] Right: Knee [employer] 02/01/2020 [id number] / / [id number] Brdg Tib Karina Stbl 12mm X 71mm Implanted:Qty: 1 on 04/17/2015 by Og Phillip MD at [facility] Right: Knee [employer] 02/23/2020 [id number] / / [id number] Vangrd Ant Stblzd Brg 10mm X 75mm Implanted:Qty: 1 on 09/04/2015 by Og Phillip MD at [facility] Left: Knee [employer] 03/23/2020 [id number] / / [id number] Alexey Bone [place] Hv Implanted:Qty: 1 on 09/04/2015 by Og Phillip MD at [facility] Left: Knee [employer] 04/18/2017 [id number] / / [id number] Butn Pat Arcom Wire Polyeth Xsm 28 X 8 Implanted:Qty: 1 on 09/04/2015 by Og Phillip MD at [facility] Left: Knee [employer] 07/19/[id number] / / [id number] Ins Kn Vangurd Fem Cocr L-Intlok 70.0mm Implanted:Qty: 1 on 09/04/2015 by Og Phillip MD at [facility] Left: Knee [employer] 08/19/2024 [id number] / / [id number] Ty Tibial I Beam Fix Bar 75mm Implanted:Qty: 1 on 09/04/2015 by Og Phillip MD at [facility] Left: Knee [employer] 11/19/2024 [id number] / / [id number] Procedures * MRI LUMBAR SPINE WO CONTRAST(Performed 01/04/2020) * XR KNEE BILAT 3VW(Performed 09/10/2016) Performed for Presence of both artificial knee joints * PAIN MANAGEMENT PROCEDURE TIME(Performed 08/05/2016) Performed for Lumbar radicular pain * PAIN MANAGEMENT PROCEDURE TIME(Performed 07/25/2016) Performed for Lumbar radicular pain * MRI LUMBAR SPINE WO CONTRAST(Performed 07/25/2016) Performed for S/P spinal surgery * XR KNEE LEFT 3VW(Performed 10/17/2015) Performed for Primary osteoarthritis of left knee * HGB HCT PANEL(Performed 09/06/2015) * HGB HCT PANEL(Performed 09/05/2015) * NEURAXIAL BLOCK(Performed 09/04/2015) * ARTHROPLASTY TOTAL KNEE(Performed 09/04/2015) Performed for DJD (degenerative joint disease) of knee * HGB HCT PANEL(Performed 08/08/2015) Performed for Preop examination * CULTURE MSSA/MRSA(Performed 08/08/2015) Performed for Preop examination * XR KNEE RIGHT 3VW(Performed 05/30/2015) Performed for Osteoarthrosis, unspecified whether generalized or localized, lower leg, Aftercare following joint replacement, Knee joint replacement by other means * CARDIAC EKG ORDER(Performed 04/24/2015) * LAB RESULTS ORDER(Performed 04/24/2015) * HGB HCT PANEL(Performed 04/19/2015) * HGB HCT PANEL(Performed 04/18/2015) * ARTHROPLASTY TOTAL KNEE(Performed 04/17/2015) Performed for Osteoarthrosis, unspecified whether generalized or localized, lower leg * NEURAXIAL BLOCK(Performed 04/17/2015) * CULTURE MSSA/MRSA(Performed 03/21/2015) Performed for Preoperative examination * COMPREHENSIVE METABOLIC PANEL(Performed 03/21/2015) Performed for Preoperative examination * CBC W AUTO DIFFERENTIAL(Performed 03/21/2015) Performed for Preoperative examination * EKG 12-LEAD(Performed 03/21/2015) Performed for Preoperative examination * MRI LUMBAR SPINE WWO CONTRAST(Performed 07/03/2010) Performed for S/P Lumbar Spinal Fusion * BUN+CREATININE BLOOD PNL - POINT OF CARE(Performed 07/03/2010) Performed for Unspecified Pre-Operative Examination * XR LUMBAR SPINE 4VW OR MORE(Performed 06/12/2010) Performed for S/P Lumbar Fusion Results * MRI LUMBAR SPINE WO CONTRAST (01/04/2020) Only the most recent of2 resultswithin the time period is included. Anatomical Region Laterality Modality Spine Magnetic Resonan ce Scanned Document MR ORDERABLES * XR KNEE BILAT 3 VIEWS (09/10/2016 12:17 PM CONSTRUCTION ELECTRICIAN) Anatomical Region Laterality Modality Lower Extremity Computed Radiogr aphy Narrative 09/10/2016 3:28 PM CONSTRUCTION ELECTRICIAN Chika Pena 09/10/2016 3:28 PM Please see progress notes for result. Og Phillip MD DIAGNOSTIC IMAGING O RDERABLES * PAIN MANAGEMENT PROCEDURE TIME (08/05/2016 2:33 PM CDT) Only the most recent of2 resultswithin the time period is included. Anatomical Region Laterality Modality X-Ray Angiograph y Narrative 08/13/2016 9:03 PM CDT Christina Arreaga, RT(R) 08/05/2016 2:34 PM Translaminar Lumbar ALLIE at L2-L3. The patient was identified in the holding area and the operative permit was explained and signed. I have discussed with the patient the risks, benefits, side effects and complications of a fluoroscopically guided translaminar lumbar epidural steroid injection. I have answered the patient's questions regarding the procedure and have given the patient the opportunity to refuse the procedure. I also have discussed alternative methods of treatment. The patient stated understanding of the procedure and wished to proceed with a fluoroscopically guided translaminar lumbar epidural steroid njection. The patient was taken to the fluoroscopic suite and placed on a C-arm table in the prone position with the appropriate monitors placed. A nurse was in attendance for the duration of the procedure to carefully monitor the patient. Please refer to the nursing record for vital sign documentation and for any doses of sedatives and medications. I was present and gave the order for any medications given to the patient. The lumbosacral region of the back was prepped and draped in the usual sterile fashion. Using fluoroscopic guidance, a 27 gauge needle was used to place 2 cc of 1% Lidocaine in the skin and subcutaneous tissues overlying the L2-3 interspace. A 3.5 inch, 18 gauge Tuohy needle was advanced into the epidural space at the L2-3 interspace under fluoroscopic guidance using a [id number] technique with preservative free Normal Saline. There was no cerebrospinal fluid or blood aspirated from the needle and no paresthesia was obtained. There were no signs or symptoms of intrathecal or intravascular injection. A combination of 1 cc of 1% Lidocaine along with 1 cc of preservative-free Normal Saline and 80 mg of Depomedrol was injected. The needle was removed intact. The patient tolerated the procedure well and there were no complications. The patient was taken to the recovery area. The patient remained in stable condition with no apparent complications. Post procedure instructions were given to the patient and a follow up appointment was confirmed. The patient was also discharged with information on how to reach the clinic or record clerk salesperson physician at anytime for questions or complaints. Estimated blood loss during procedure 0 ml. Ankush Christy MD DIAGNOSTIC IMAGIN G ORDERABLES * XR KNEE 3 VW LEFT (10/17/2015 11:29 AM CONSTRUCTION ELECTRICIAN) Anatomical Region Laterality Modality Lower Extremity Radiographic Leighann ging Narrative 10/17/2015 12:22 PM CONSTRUCTION ELECTRICIAN Jia Boss, RT(R) 10/17/2015 12:22 PM See Chart For Xray Report Og Phillip MD DIAGNOSTIC IMAGING O RDERABLES * (ABNORMAL) HGB HCT PANEL (09/06/2015 5:21 AM CONSTRUCTION ELECTRICIAN) Only the most recent of5 resultswithin the time period is included. Hemoglobin 11.2(L) 12.0 - 15.6 gm/dL 09/06/2015 5:31 AM CONSTRUCTION ELECTRICIAN [facility] Hematocrit 34.2(L) 35.9 - 45.5 % 09/06/2015 5:31 AM CONSTRUCTION ELECTRICIAN [facility] Blood BLOOD SPECIMEN / Unknown 09/06/2015 5:21 AM CONSTRUCTION ELECTRICIAN 09/06/2015 5:25 AM CONSTRUCTION ELECTRICIAN Og Phillip MD LAB - HEMATOLOGY ORD ERABLES [facility] [address] [place] [address] * NEURAXIAL BLOCK (09/04/2015 7:47 AM CONSTRUCTION ELECTRICIAN) Narrative Myron Valenzuela, BENITOSTORES DESPATCH HAND - 09/04/2015 7:47 AM CONSTRUCTION ELECTRICIAN Myron Valenzuela, BENITOSTORES DESPATCH HAND 09/04/2015 7:47 AM NEURAXIAL BLOCK Patient Location: OR Pre Procedure Indication: surgical anesthesia Anticoagulation /Antithrombosis Status Confirmed: Yes Preanesthetic Checklist: patient identified, IV checked, site marked, risks and benefits discussed, surgical consent verified, monitors and equipment checked, pre-op evaluation done, informed consent obtained and questions answered / anesthesia plan accepted Monitors: BP and Pulse Ox Patient Condition: awake Patient Position: sitting Procedure Block Performed: spinal Prep: Betadine Sterile Field: mask, cap/hat, sterile field established and sterile gloves Approach: midline Skin Numbed with: lidocaine 1% Spinal Needle Type: Quincke Needle Gauge: 22 G Needle Length: 3.5 in Placement Site: L3-4 Number of Attempts: 1 CSF: free flow and aspiration before injection Local Anesthetic: bupivacaine 0.75% in dextrose 1.8 ml Spinal Additive: ANE Block Spinal Additive Other: clonidine. 50 mcg Events CSF return injection not painful no paresthesia no other event Degree of Difficulty: none Position Post Procedure: supine Vital signs monitored and stable throughout. See Anesthesia Intraop record for details. Block Performed by: Myron Valenzuela crna Og Phillip MD GENERAL ANESTHESIA O RDERABLES * CULTURE MSSA/MRSA (08/08/2015 2:32 PM CDT) Only the most recent of2 resultswithin the time period is included. Culture Negative for MRSA/MSSA BETO 08/09/2015 6:45 PM CDT [facility] MICROBIOLOGY Microbiology SPECIMEN FROM NASAL FOSSAE / Unknown 08/08/2015 2:32 PM CDT 08/08/2015 3:13 PM CDT Og Phillip MD LAB - MICROBIOLOGY O RDERABLES [facility] MICROBIOLOGY [address] [place], [place] [address], [facility] [phone] * XR KNEE 3 VW RIGHT (05/30/2015 11:34 AM CDT) Anatomical Region Laterality Modality Lower Extremity Radiographic Leighann ging Narrative 05/30/2015 2:20 PM CDT Jane Juarez, RT(R) 05/30/2015 2:20 PM SEE PROGRESS NOTES FOR FINAL RESULT Og Phillip MD DIAGNOSTIC IMAGING O RDERABLES * CARDIAC EKG ORDER (04/24/2015 9:05 PM CDT) Narrative 04/24/2015 9:05 PM CDT Ordered by an unspecified provider. Scanned Document CARDIAC SERVICES ORD ERABLES * LAB RESULTS ORDER (04/24/2015 9:05 PM CDT) Narrative 04/24/2015 9:05 PM CDT Ordered by an unspecified provider. Scanned Document LAB - THERAPEUTIC DR HURST MONITORING ORDERABLES * NEURAXIAL BLOCK (04/17/2015 8:59 AM CDT) Narrative Myron Valenzuela APRN-STORES DESPATCH HAND - 04/17/2015 8:59 AM CDT JAMAL Lockhart 04/17/2015 8:59 AM NEURAXIAL BLOCK Patient Location: OR Pre Procedure Indication: surgical anesthesia Anticoagulation /Antithrombosis Status Confirmed: Yes Preanesthetic Checklist: patient identified, IV checked, site marked, risks and benefits discussed, surgical consent verified, monitors and equipment checked, pre-op evaluation done, timeout performed, informed consent obtained and questions answered / anesthesia plan accepted Monitors: BP and Pulse Ox Patient Condition: awake Patient Position: sitting Procedure Block Performed: spinal Prep: Betadine Sterile Field: cap/hat, mask, sterile field established and sterile gloves Approach: left paramedian Skin Numbed with: lidocaine 1% Spinal Needle Type: Quincke Needle Gauge: 22 G Needle Length: 3.5 in Placement Site: L3-4 Number of Attempts: 3 CSF: free flow and aspiration before injection Local Anesthetic: bupivacaine 0.75% in dextrose 2 ml Spinal Additive: fentanyl 25 mcg Events CSF return injection not painful Degree of Difficulty: marked Position Post Procedure: supine Vital signs monitored and stable throughout. See Anesthesia Intraop record for details. Block Performed by: Grey Moreno MD Og Phillip MD GENERAL ANESTHESIA O RDERABLES * CBC W AUTO DIFFERENTIAL (03/21/2015 3:39 PM CDT) WBC 6.9 4.4 - 10.7 x10^9/L 03/21/2015 4:15 PM CDT [facility] WBC Corrected x10^9/L 03/21/2015 4:15 PM CDT [facility] RBC 4.14 3.80 - 5.20 x10^12/L 03/21/2015 4:15 PM CDT [facility] Hemoglobin 13.3 12.0 - 15.6 gm/dL 03/21/2015 4:15 PM CDT [facility] Hematocrit 37.9 35.9 - 45.5 % 03/21/2015 4:15 PM CDT [facility] MCV 91.5 80.7 - 98.3 fl 03/21/2015 4:15 PM CDT [facility] MCH 32.1 26.7 - 34.0 pg 03/21/2015 4:15 PM CDT [facility] MCHC 35.1 30.8 - 35.9 gm/dL 03/21/2015 4:15 PM CDT [facility] Platelet Count 229 153 - 416 x10^9/L 03/21/2015 4:15 PM CDT [facility] RDW-CV 13.0 12.1 - 14.9 % 03/21/2015 4:15 PM CDT [facility] MPV 9.8 9.4 - 12.9 fl 03/21/2015 4:15 PM CDT [facility] Neutrophils % 55.2 44.0 - 73.0 % 03/21/2015 4:15 PM CDT [facility] Lymphocytes % 31.8 20.0 - 43.0 % 03/21/2015 4:15 PM CDT [facility] Monocytes % 10.9 5.0 - 13.0 % 03/21/2015 4:15 PM CDT [facility] Eosinophils % 1.3 0.0 - 6.0 % 03/21/2015 4:15 PM CDT [facility] Basophils % 0.7 0.0 - 2.0 % 03/21/2015 4:15 PM CDT [facility] Immature Granulocytes 0.1 0 - 1 % 03/21/2015 4:15 PM CDT [facility] Neutrophil Absolute 3.79 2.01 - 7.14 x10^9/L 03/21/2015 4:15 PM CDT [facility] Lymphocytes Absolute 2.19 1.07 - 3.94 x10^9/L 03/21/2015 4:15 PM CDT [facility] Monocytes Absolute 0.75 0.26 - 1.07 x10^9/L 03/21/2015 4:15 PM CDT [facility] Eosinophils Absolute 0.09 0 - 0.47 x10^9/L 03/21/2015 4:15 PM CDT [facility] Basophils Absolute 0.05 0 - 0.08 x10^9/L 03/21/2015 4:15 PM CDT [facility] Immature Granulocytes Absolute 0.01 0.00 - 0.06 x10^9/L 03/21/2015 4:15 PM CDT [facility] Blood BLOOD SPECIMEN / Unknown 03/21/2015 3:39 PM CDT 03/21/2015 4:08 PM CDT Og Phillip MD LAB - HEMATOLOGY ORD ERABLES [facility] [address] [place] [address] * (ABNORMAL) COMPREHENSIVE METABOLIC PANEL (03/21/2015 3:39 PM CDT) [facility] Glucose 100 74 - 106 mg/dL 03/21/2015 4:26 PM CDT [facility] Sodium 140 136 - 145 mmol/L 03/21/2015 4:26 PM CDT [facility] Potassium 3.4(L) 3.5 - 5.1 mmol/L 03/21/2015 4:26 PM CDT [facility] Chloride 104 98 - 107 mmol/L 03/21/2015 4:26 PM CDT [facility] CO2 32(H) 22 - 31 mmol/L 03/21/2015 4:26 PM CDT [facility] Calcium 9.2 8.5 - 10.1 mg/dL 03/21/2015 4:26 PM CDT [facility] Anion Gap 4(L) 5 - 15 mmol/L 03/21/2015 4:26 PM CDT [facility] BUN 21 7 - 21 mg/dL 03/21/2015 4:26 PM CDT [facility] Creatinine 0.73 0.50 - 1.30 mg/dL 03/21/2015 4:26 PM CDT [facility] eGFR by MDRD >60 >60 mL/min/1.7 3m2 03/21/2015 4:26 PM CDT [facility] eGFR by MDRD >60 >60 mL/min/1.7 3m2 03/21/2015 4:26 PM CDT [facility] Alkaline Phosphatase 79 38 - 126 U/L 03/21/2015 4:26 PM CDT [facility] ALT 27 12 - 78 U/L 03/21/2015 4:26 PM CDT [facility] AST 21 5 - 40 U/L 03/21/2015 4:26 PM CDT [facility] Protein Total 7.1 6.4 - 8.2 gm/dL 03/21/2015 4:26 PM CDT [facility] Albumin 3.6 3.4 - 5.0 gm/dL 03/21/2015 4:26 PM CDT [facility] Bilirubin Total 0.3 0.2 - 1.0 mg/dL 03/21/2015 4:26 PM CDT [facility] Blood BLOOD SPECIMEN / Unknown 03/21/2015 3:39 PM CDT 03/21/2015 4:08 PM CDT Og Phillip MD LAB - CHEMISTRY NATALEE MADERA [facility] Organization Address City/State/ZIP Co de Phone Number [facility] [address] [place] [address] * EKG 12-LEAD (03/21/2015 3:29 PM CDT) Ventricular Rate 61 BPM [facility] Atrial Rate 61 BPM [facility] P-R Interval 132 ms [facility] QRS Duration ms 90 ms [facility] Q-T Interval ms 430 ms [facility] QTC Calculation (Bezet) 432 ms [facility] Calculated P [place] 16 degrees [facility] Calculated R [place] -9 degrees [facility] Calculated T [place] 0 degrees [facility] Interpretation EKG Normal sinus rhythm Moderate voltage criteria for LVH, may be normal variant Borderline ECG No previous ECGs available Confirmed by LEONARDO MERRITT MD ([id number]) on 03/22/2015 7:53:39 AM [facility] 03/21/2015 3:29 PM CDT 03/22/2015 7:53 AM CDT Og Phillip MD ECG ORDERABLES [facility] * MRI SPINE LUMBAR WITH AND WITHOUT CONTRAST (07/03/2010 3:50 PM CDT) Anatomical Region Laterality Modality Spine Magnetic Resonan ce 07/04/2010 1:33 PM CDT Impressions 07/04/2010 2:08 PM CDT Patient has undergone posterior fusion from L4 through the sacrum. Neural foraminal stenosis is present bilaterally at L4-L5, predominately due to malalignment with a disc bulge extending into the right neural foramen. Disc herniation extending into the left neural foramen at L3-L4 results in mild bilateral lateral recess stenosis, left greater than right, and in a mild left neural foraminal stenosis. Narrative 07/04/2010 2:08 PM CDT MRI LUMBAR SPINE INDICATION: Low back pain, fusion in 2007. COMPARISON: Radiographic series of lumbar spine June 12, 2010. TECHNIQUE: Sagittal and axial T1 and T2. Sagittal and axial T1 following intravenous administration of 20 cc Omniscan, sagittal STIR. FINDINGS: Patient has undergone previous lumbar spinal fusion at the L4, L5, and S1 levels with intervertebral disc cage at the L4-L5 and L5-S1 disc spaces. Careful correlation between this and the subsequent radiographic examinations of the lumbar spine is recommended to ensure consistent numbering of disc spaces. This is particularly important if surgery is considered. Alignment: There is an anterolisthesis of L4 on L5, measuring approximately 5 mm. Marrow: Marrow signal is obscured by fixation hardware at L4, L5, and the sacrum. Marrow signal is otherwise unremarkable. Spinal Cord: Appears normal in morphology and in signal intensity. Terminates at L1-L2. Disc Spaces: There is loss of disc hydration at L2-L3 and L3-L4 and from T9-T10 through T12-L1. Mild loss of disc height is present at L3-L4. Small disc bulge is present at L2-L3 and L3-L4. Disc cages are present at L4-L5 and L5-S1. The following levels were directly imaged in the axial plane: L5-S1: The patient has undergone posterior spinal fusion at this level. Inflammatory changes are present in the posterior paraspinous musculature bilaterally, left greater than right. Enhancing scar and granulation tissue is seen to the left of the thecal sac and in the left lateral recess. This results in a mild left lateral recess stenosis. L4-L5: Patient has undergone a decompressive laminectomy. Enhancing scar and granulation tissue lies posterior and lateral to the thecal sac, left greater than right. The right neural foramen is mildly narrowed secondary to malalignment of L4 on L5 and a mild disc bulge in the right neural foramen. The left is minimally to mildly narrowed predominately due to malalignment. L3-L4: Mild disc bulge is present with bilateral facet arthropathy. Diffuse disc bulge extends eccentric to the left into the left neural foramen. This results in mild bilateral lateral recess stenosis, left greater than right. Mild left neural foraminal stenosis results. L2-L3: No significant abnormality is present. Procedure Note Sarahi Winston MD - 07/04/2010 MRI LUMBAR SPINE INDICATION: Low back pain, fusion in 2007. COMPARISON: Radiographic series of lumbar spine June 12, 2010. TECHNIQUE: Sagittal and axial T1 and T2. Sagittal and axial T1 following intravenous administration of 20 cc Omniscan, sagittal STIR. FINDINGS: Patient has undergone previous lumbar spinal fusion at the L4, L5, and S1 levels with intervertebral disc cage at the L4-L5 and L5-S1 disc spaces. Careful correlation between this and the subsequent radiographic examinations of the lumbar spine is recommended to ensure consistent numbering of disc spaces. This is particularly important if surgery is considered. Alignment: There is an anterolisthesis of L4 on L5, measuring approximately 5 mm. Marrow: Marrow signal is obscured by fixation hardware at L4, L5, and the sacrum. Marrow signal is otherwise unremarkable. Spinal Cord: Appears normal in morphology and in signal intensity. Terminates at L1-L2. Disc Spaces: There is loss of disc hydration at L2-L3 and L3-L4 and from T9-T10 through T12-L1. Mild loss of disc height is present at L3-L4. Small disc bulge is present at L2-L3 and L3-L4. Disc cages are present at L4-L5 and L5-S1. The following levels were directly imaged in the axial plane: L5-S1: The patient has undergone posterior spinal fusion at this level. Inflammatory changes are present in the posterior paraspinous musculature bilaterally, left greater than right. Enhancing scar and granulation tissue is seen to the left of the thecal sac and in the left lateral recess. This results in a mild left lateral recess stenosis. L4-L5: Patient has undergone a decompressive laminectomy. Enhancing scar and granulation tissue lies posterior and lateral to the thecal sac, left greater than right. The right neural foramen is mildly narrowed secondary to malalignment of L4 on L5 and a mild disc bulge in the right neural foramen. The left is minimally to mildly narrowed predominately due to malalignment. L3-L4: Mild disc bulge is present with bilateral facet arthropathy. Diffuse disc bulge extends eccentric to the left into the left neural foramen. This results in mild bilateral lateral recess stenosis, left greater than right. Mild left neural foraminal stenosis results. L2-L3: No significant abnormality is present. IMPRESSION Patient has undergone posterior fusion from L4 through the sacrum. Neural foraminal stenosis is present bilaterally at L4-L5, predominately due to malalignment with a disc bulge extending into the right neural foramen. Disc herniation extending into the left neural foramen at L3-L4 results in mild bilateral lateral recess stenosis, left greater than right, and in a mild left neural foraminal stenosis. Kleber Sanderson MD MR ORDERABLES * (ABNORMAL) BUN+CREATININE BLOOD PNL - POINT OF CARE (07/03/2010 2:51 PM CDT) BUN POCT 30(A) 7 - 17 mg/dL [facility] Creatinine POCT 1.1 0.7 - 1.2 mg/dL [facility] QC Verified yes Yes [facility] POC T TESTING Blood specimen (specimen) BLOOD SPECIMEN / Unknown 07/03/2010 2:51 PM CDT Kleber Sanderson MD LAB - POINT OF CARE ORDERABLES [facility] POCT TESTING [address] [place] [address] * XR LUMBAR SPINE 4+ VW (06/12/2010 1:56 PM CDT) Anatomical Region Laterality Modality Spine Radiographic Leighann ging 06/12/2010 2:19 PM CDT Narrative 06/12/2010 4:23 PM CDT INDICATION: Back pain followup, post surgery Examination of the lumbosacral spine AP, lateral, and both obliques reveals pedicle screws and rods in place at the L4, L5, and S1 levels. Intervertebral devices are noted in place at the L4-L5 and L5-S1 levels. There is mild hypertrophic spurring throughout the lumbar spine. Slight anterior displacement of L4 on L5 in the range of 0.5 cm is noted. Vertebral bodies are otherwise normally aligned and the remaining intervertebral spaces are of average width. No other apparent recent fracture, dislocation, focal bone production or destruction is noted. Procedure Note Kevin Farmer MD - 06/12/2010 INDICATION: Back pain followup, post surgery Examination of the lumbosacral spine AP, lateral, and both obliques reveals pedicle screws and rods in place at the L4, L5, and S1 levels. Intervertebral devices are noted in place at the L4-L5 and L5-S1 levels. There is mild hypertrophic spurring throughout the lumbar spine. Slight anterior displacement of L4 on L5 in the range of 0.5 cm is noted. Vertebral bodies are otherwise normally aligned and the remaining intervertebral spaces are of average width. No other apparent recent fracture, dislocation, focal bone production or destruction is noted. Kleber Sanderson MD DIAGNOSTIC LEIGHANN GING ORDERABLES Care Teams Vp Biology Relationship Specialty Start Date End Date Christine Witt [address] [place] [id number] PCP - General 12/04/23 [place] [address] [place] [address] Orthopedic Surgery 02/14/15 Kleber Sanderson MD [address] [place] [address] Neurological Surgery 12/04/23
[2024-12-10 07:19] VITALS: BP 144/77; PULSE 57; RESP 18; TEMP 35.8; O2SAT 99
[2024-12-10] MEDS: LACTATED RINGERS 1,000 ML 150 ML IV CONT (07:27)
--- NOTE | 2024-12-10 08:12 | WPDANESEPPF ---
Anes - Initial Pre Proc Eval Procedure: Operation Date: 12/10/24 08:30 Proposed Procedures p Colonoscopy - Bossman Pizarro MD Date/Time: 12/10/24 08:12 Surgeon: Bossman Pizarro MD Pre Op Diagnosis: personal hx of colon polyps Patient Data Age: 74 Gender: F Height: 1.63 m Weight: 111.9 kg Last Vital Signs Temp 96.5 F L 12/10/24 07:19 Pulse 57 L 12/10/24 07:19 Resp 18 12/10/24 07:19 BP 144/77 H 12/10/24 07:19 Pulse Ox 99 12/10/24 07:19 O2 Del Method Room Air 12/10/24 07:19 Allergies Allergy/AdvReac Type Severity Reaction Status Date / Time Iodinated Contrast Media Allergy Mild Hives Verified 12/10/24 07:17 iodine Allergy Mild Hives Verified 12/10/24 07:17 oxycodone Allergy Mild Confusion Verified 12/10/24 07:17 Home Medications ?Medication ?Instructions ?Recorded ?Confirmed ?Type ascorbic acid (vitamin C) 500 mg 500 mg PO DAILY 08/23/19 12/10/24 History tablet (Vitamin C) aspirin 81 mg tablet,delayed 81 mg PO DAILY 08/23/19 12/10/24 History release (Adult Low Dose Aspirin) calcium carbonate (Calcium 500) 500 mg PO DAILY 08/23/19 12/10/24 History cholecalciferol (vitamin D3) 50 4,000 unit PO DAILY 08/23/19 12/10/24 History mcg (2,000 unit) tablet (Vitamin D3) nitroglycerin 0.4 mg sublingual 0.4 mg sublingual DIRECTED PRN 12/15/19 11/30/24 History tablet Chest Pain lysine 500 mg tablet 500 mg PO DAILY 10/28/22 12/10/24 History levothyroxine 25 mcg tablet 25 mcg PO QAM #90 tabs 06/22/24 12/10/24 Rx atorvastatin 40 mg tablet 40 mg PO QHS 09/13/24 12/10/24 History Patient hx anesthesia problems: none Family hx anesthesia problems: none Results Review: All pre-operative results and documents have been reviewed as part of the pre-operative evaluation. [facility] Past Medical History Medical History History of colon polyps Osteopenia TMJ (temporomandibular joint disorder) CAD (coronary artery disease) (~2016) Benign paroxysmal positional vertigo Back pain Sleep apnea Vitamin D deficiency GERD without esophagitis Hyperlipidemia Essential (primary) hypertension Hypothyroid Family history of colon cancer in father Chronic pain Surgical History Surgical History History of lithotripsy (~2012) History of carpal tunnel release S/P RALPH (total abdominal hysterectomy) (~2003) Endometriosis History of lumbar fusion (~2007) 2008 History of total knee arthroplasty bilateral 03/2015, 08/2015 Hx of cholecystectomy (~1994) History of appendectomy History of coronary artery stent placement (~06/2017) X3 - 2 stents LAD & RCA in 2017 then another 1 stent in 2018 Family History Family History Grandparent Diabetes mellitus Family history of malignant neoplasm of breast Family history of coronary artery disease Mother Patient's mother is in good health Cerebrovascular accident Carcinoma of colon Family history of hearing loss Father Patient's father is in good health Family history of heart disease in male family member before age 55 Family history of Alzheimer's disease Family history of coronary artery disease Sibling Patient's sister is in good health Patient's brother is in good health Family history of malignant neoplasm of breast in first degree relative Hypertension Other Family history of allergic disorder Social History Social History Social History: The patient lives with her who is the durable power mergers and acquisitions attorney for healthcare. 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 She has 2 children. The patient is a lifelong nonsmoker. She does not use any alcohol marijuana or illicit drugs. Code status full code Smoking status: Never smoker Second hand tobacco smoke exposure: No Alcohol intake: never Substance use: never Substance use type: does not use Lack of Transportation: No Lack of Food: Never True Current Housing: I Have Housing Concerned About Future Housing: No Difficulty Paying Gas/Electric Bills: No Difficulty Paying for Meds: No Currently Unemployed: No Education: High School Diploma/GED Difficulty w/ Childcare or Family Care: No Living arrangements: with family Additional living arrangements comments: Occupation/Education: retired Gender identity (if verbalized by the patient): Female Sexual Orientation (if Verbalized by the Patient): Straight or Heterosexual Spiritual care concerns: No Agree to blood products: Yes Anes - Eval Final PreProcedure Day of Procedure 12/10/24 08:12 Patient weight: morbidly obese Lungs: normal air movement Airway: Mallampati scale class II Neurological: alert and oriented Last oral intake: >/= 8 hours ASA classification: III Emergent: no Anesthetic plan: proceed Anesthesia type and monitoring: general GIVS and standard monitoring Results Review: All pre-operative results and documents have been reviewed as part of the pre-operative evaluation. BMI 42. Hyperlipideia, hypothyroidism. Informed Consent: The patient's anesthetic plan and its attendant risks and benefits were discussed with the patient/family/POA. Questions were solicited and answers provided to the satisfaction of the patient/family/POA.
--- NOTE | 2024-12-10 08:24 | PM.IMHP ---
H&P: HPI History of Present Illness Date/Time: 12/10/24 08:24 Chief Complaint: history of colon polyps -family history of colorectal cancer Narrative: The patient has a history of colonic polyps, the last colonoscopy was 5 years ago. In addition, her Father had colorectal cancer in her 70s. Review of Systems Review of Systems: All systems reviewed & are unremarkable except as noted in HPI and below PMFSH Past Medical History Medical History (Updated 12/10/24 @ 08:29 by Bossman Pizarro MD) Family history of colon cancer in father History of colon polyps Osteopenia TMJ (temporomandibular joint disorder) CAD (coronary artery disease) (~2016) Benign paroxysmal positional vertigo Back pain Sleep apnea Vitamin D deficiency GERD without esophagitis Hyperlipidemia Essential (primary) hypertension Hypothyroid Chronic pain Surgical History Surgical History History of lithotripsy (~2012) History of carpal tunnel release S/P RALPH (total abdominal hysterectomy) (~2003) Endometriosis History of lumbar fusion (~2007) 2008 History of total knee arthroplasty bilateral 03/2015, 08/2015 Hx of cholecystectomy (~1994) History of appendectomy History of coronary artery stent placement (~06/2017) X3 - 2 stents LAD & RCA in 2017 then another 1 stent in 2018 Family History Family History (Updated 12/10/24 @ 08:29 by Bossman Pizarro MD) Grandparent Diabetes mellitus Family history of malignant neoplasm of breast Family history of coronary artery disease Mother Patient's mother is in good health Cerebrovascular accident Carcinoma of colon Family history of hearing loss Father Patient's father is in good health Family history of heart disease in male family member before age 55 Family history of Alzheimer's disease Family history of coronary artery disease Sibling Patient's sister is in good health Patient's brother is in good health Family history of malignant neoplasm of breast in first degree relative Hypertension Other Family history of allergic disorder Family history of colon cancer in father Social History Social History Social History: The patient lives with her who is the durable power insurance attorney for healthcare. 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 She has 2 children. The patient is a lifelong nonsmoker. She does not use any alcohol marijuana or illicit drugs. Code status full code Smoking status: Never smoker Second hand tobacco smoke exposure: No Alcohol intake: never Substance use: never Substance use type: does not use Lack of Transportation: No Lack of Food: Never True Current Housing: I Have Housing Concerned About Future Housing: No Difficulty Paying Gas/Electric Bills: No Difficulty Paying for Meds: No Currently Unemployed: No Education: High School Diploma/GED Difficulty w/ Childcare or Family Care: No Living arrangements: with family Additional living arrangements comments: Occupation/Education: retired Gender identity (if verbalized by the patient): Female Sexual Orientation (if Verbalized by the Patient): Straight or Heterosexual Spiritual care concerns: No Agree to blood products: Yes Meds Home Medications and Allergies Home Medications ?Medication ?Instructions ?Recorded ?Confirmed ?Type ascorbic acid (vitamin C) 500 mg 500 mg PO DAILY 08/23/19 12/10/24 History tablet (Vitamin C) aspirin 81 mg tablet,delayed 81 mg PO DAILY 08/23/19 12/10/24 History release (Adult Low Dose Aspirin) calcium carbonate (Calcium 500) 500 mg PO DAILY 08/23/19 12/10/24 History cholecalciferol (vitamin D3) 50 4,000 unit PO DAILY 08/23/19 12/10/24 History mcg (2,000 unit) tablet (Vitamin D3) nitroglycerin 0.4 mg sublingual 0.4 mg sublingual DIRECTED PRN 12/15/19 11/30/24 History tablet Chest Pain lysine 500 mg tablet 500 mg PO DAILY 10/28/22 12/10/24 History levothyroxine 25 mcg tablet 25 mcg PO QAM #90 tabs 06/22/24 12/10/24 Rx atorvastatin 40 mg tablet 40 mg PO QHS 09/13/24 12/10/24 History Allergies Allergy/AdvReac Type Severity Reaction Status Date / Time Iodinated Contrast Media Allergy Mild Hives Verified 12/10/24 07:17 iodine Allergy Mild Hives Verified 12/10/24 07:17 oxycodone Allergy Mild Confusion Verified 12/10/24 07:17 Vital Signs Vital Signs - 24 hr 12/10/24 07:19 Temperature 96.5 F L Pulse Rate 57 L Respiratory Rate 18 Blood Pressure 144/77 H Pulse Oximetry 99 Oxygen Delivery Room Air Exam Const: General: cooperative and healthy appearing Resp: Effort & Inspection: normal respiratory effort and able to speak in complete sentences Auscultation: clear to auscultation bilaterally Cardio: Rate: regular rate Rhythm: regular rhythm GI: Inspection: normal to inspection GI Palp: No No hepatosplenomegaly present Auscultation: normal bowel sounds Rectal Exam: deferred Skin: General skin exam: normal color Psych: Appearance: grossly normal Mental Status: mental status grossly normal Assessment and Plan Assessment and plan (1) Family history of colon cancer in father: Code(s): Z80.0 - Family history of malignant neoplasm of digestive organs Status: Acute Plan The patient is deemed a good candidate for the procedure. Consent signed. Will proceed.
[2024-12-10 08:55] VITALS: BP 122/69; PULSE 67; RESP 20; O2SAT 97
[2024-12-10 09:05] VITALS: BP 131/64; PULSE 63; RESP 18; O2SAT 98
[2024-12-10 09:15] VITALS: BP 144/82; PULSE 72; RESP 20; O2SAT 100
== END 2024-12-10 09:54 | disposition home or self-care (01) ==
PROVIDERS: PCP Family Medicine; Visit Provider Internal Medicine Gastroenterology
PROC: 0DJD8ZZ Inspection of Lower Intestinal Tract, Via Natural or Artificial Opening Endoscopic (ICD-10-PCS; CPT 45378; principal; 2024-12-10 08:30)
DX: Z12.11 Encounter for screening for malignant neoplasm of colon (principal); K63.5 Polyp of colon; K57.30 Diverticulosis of large intestine without perforation or abscess without bleeding; Z80.0 Family history of malignant neoplasm of digestive organs; E66.01 Morbid (severe) obesity due to excess calories; Z68.41 Body mass index [BMI] 40.0-44.9, adult
CPT/HCPCS: 45385; 88305; J2003; J2704; J7120

== ENCOUNTER 2024-12-27 14:33 | Outpatient (CLI) | payer MEDICARE, SELFPAY ==
[2024-12-27 15:30] LABS: Influenza A QL RT-PCR Negative (Negative); Influenza B QL RT-PCR Negative (Negative); RSV RNA, RT-PCR Negative (Negative); SARS-CoV-2 RNA PCR Negative (Negative)
--- OUTSIDE RECORDS SUMMARY | 2024-12-27 17:00 | XMS_ITS | Clinical Summary ---
Author Organization [facility] Address Formerly [facility] [place] [address] Care Team Providers Care Roller Mechanic Name Role Phone Chang Jaimes MD Unavailable [phone] Noelle Tate Primary Care Provider [phone] Allergies Active Allergy Reactions Criticality Noted Date Comments Iodine Hives 03/29/2016 Medications Lysine Acetate 500 MG Tab Take 1 tablet by mouth 2 (two) times daily. 06/13/2017 Active Calcium Carbonate-Vitam in D 600-400 MG-UNIT Chew Tab Chew 2 tablets by mouth daily. 06/20/2017 Active Cholecalciferol 50 MCG (2000 UT) Tab Take 2 tablets by mouth daily. 06/20/2017 Active vitamin C 500 MG tablet Take 1 tablet (500 mg total) by mouth daily. 01/08/2018 Active [facility] ASPIRIN CHILD 81 MG chewable tablet CHEW 1 TABLET (81 MG TOTAL) BY MOUTH DAILY. 90 tablet 07/13/2018 Active Loratadine 10 MG Cap Take 1 capsule by mouth daily as needed. Active levothyroxine 25 MCG tablet Take 1 tablet (25 mcg total) by mouth daily. 03/18/2020 Active Magnesium 400 MG Cap Take 1 capsule by mouth daily. 11/22/2021 Active nitroglycerin (NITROSTAT) 0.[address] 1 tablet (0.4 mg total) under the tongue every 5 (five) minutes as needed for Chest Pain. Maximum of 3 doses. If taking 3rd dose call 911 25 tablet 1 09/29/2023 Active terbinafine (LAMISIL) 250 MG tablet 1 tablet (250 mg total). 1 WEEK PER MONTH 06/07/2024 Active atorvastatin (LIPITOR) 40 MG tablet TAKE 1 TABLET BY MOUTH NIGHTLY AT BEDTIME 90 tablet 1 11/25/2024 Active Active Problems Problem Noted Date Diagnosed Date Morbid (severe) obesity due to excess calories 0 02/07/2023 Body mass index (BMI) 40.0-44.9, adult 3 PIO on CPAP 09/25/2020 Nocturia 09/25/2020 Chest pain 11/18/2019 Class 3 severe obesity due t o excess calories without serious comorbidity with body mass index (BMI) of 40.0 to 44.9 in adult 10/18/2019 Dyslipidemia 01/08/2018 Coronary artery disease invo lving [place] coronary artery of [place] heart without angina pectoris 07/03/2017 Dizziness 05/27/2017 Presence of both artificial knee joints 09/09/20 16 Osteoarthrosis involving lower leg 05/02/2015 Overview (11/18/2019): Overview: 2015 IMO Updt S/P knee replacement 05/02/2015 Essential (primary) hypertension Atypical chest pain Encounters Date Type Department Care Team Description 12/02/2024 Telephone [facility] [address] Chang Jaimes MD Surgical Clearance 11/23/2024 Scan [facility] HE[facility] INFO SRVCS Scanned, Doc [facility] 10/22/2024 Telephone [facility] [id number] [place] [address] Oswald Carrero DO Appointment Request 10/21/2024 10:00 AM COMMERCIAL COLLECTIONS DRIVER Office Visit [facility] [address] [address] Chinyere Gómez FNP Coronary Artery Disease (6mo); Hypertension; Lipids from Last 3 Months Immunizations Name Administration Dates Next Due Fluzone 6 Months+ Quad (0.5 mL Prefilled Syringe ) 07/21/2019 Influenza (Generic) 07/27/2015 Influenza Adult (Generic) 07/09/2018,07/10/2017 Pneumococcal (Pneumovax 23) 05/23/2018 Shingrix 11/27/2018 Tdap (Boostrix) 02/05/2019 Zoster (Zostavax) 16070 Unt/0.65Ml 10/20/2017 Family History Medical History Relation [...] Sex Assigned at Female 11/19/2024 3:58 PM COMMERCIAL COLLECTIONS DRIVER Legal Sex Female 2:32 AM CDT Gender Identity Not on file Sexual Orientation Not on file Occupation Industry Job Start Date Job End Date Not on file Not on file Not on file Not on file Last Filed Vital Signs Vital Sign Reading Time Taken Comments Blood Pressure 132/84 10/21/2024 9:43 AM COMMERCIAL COLLECTIONS DRIVER Pulse 75 10/21/2024 9:43 AM COMMERCIAL COLLECTIONS DRIVER Temperature 36.4 C (97.5 F) 04/12/2024 11:25 AM CDT Respiratory Rate 18 04/12/2024 11:25 AM CDT Oxygen Saturation 95% 10/21/2024 9:43 AM COMMERCIAL COLLECTIONS DRIVER Inhaled Oxygen Concentration - - Weight 113 kg (249 lb 3.2 oz) 10/21/2024 9:43 AM COMMERCIAL COLLECTIONS DRIVER Height 162.6 cm (5' 4 ) 10/21/2024 9:43 AM COMMERCIAL COLLECTIONS DRIVER Body Mass Index 42.78 10/21/2024 9:43 AM COMMERCIAL COLLECTIONS DRIVER Plan of Treatment Upcoming Encounters Date Type Department Care Team (Late st Contact Info) Description 2025 11:15 AM CDT Office Visit [facility] [address] [place] [address] Chang Jaimes MD [facility]. [address] [place] [address] 05/23/2025 1:20 PM CDT Office Visit [facility] [address] [address] Oswald Carrero DO [address] [place] [address] Health Maintenance Due Date Last Done Comments [...] 12/25/2020, Additional history exists COVID-19 Vaccine ( - season) 2024 Influenza Adult (#1) 2024 07/21/2019, 07/09/2018, 07/10/2017, Additional history exists PHQ-2 (Physician [facility]) 10/20/2024 DTaP, Tdap and Td Vaccines (2 [...] 125 <200.0 MG/DL 02/17/2023 12:39 PM CDT [facility] TRIGLYCERIDES 89 <150 MG/DL 02/17/2023 12:39 PM CDT [facility] HDL 52 >40.0 MG/DL 02/17/2023 12:39 PM CDT [facility] LDL (CALCULATED) 55 <100 MG/DL 02/18/20 12:39 PM CDT [facility] NON HDL CHOLESTEROL 73 <130 MG/DL 02/17 12:39 PM CDT [facility] CHOL/HDL RATIO 2.4 0.0 - 4.5 02/17/2023 12:39 PM T [facility] VLDL CALCULATION 18 5 - 55 MG/DL 02/17/2023 12:39 PM T [facility] LIPID INTERPRETATION 02/17/2023 12:39 PM T [facility] Comment: NIH CONCENSUS REPORT RECOMMENDATIONS: ADULT CHILD LOW RISK: CHOLESTEROL <200 <170 TRIGLYCERIDE <150 --- HDL >=60 --- LDL <100 <110 BORDERLINE: CHOLESTEROL 200-239 170-199 TRIGLYCERIDE 150-199 --- HDL 40-59 --- LDL 100-159 110-129 HIGH RISK: CHOLESTEROL >=240 >=200 TRIGLYCERIDE >=200 --- HDL <40 --- LDL >=160 >=130 02/17/2023 11:5 4 AM CDT [facility] Final Result [facility] [address] [place] [address], [place] [phone] from Last 3 Months or Most Recently Relevant to Health Maintenance Insurance MEDICARE [facility] MEDIC[facility] Advance Directives * Full Code (Latest Code Status on File) Date Activated Date Inactivated Comments 11/18/2019 5:38 AM 11/18/2019 6:01 PM Care Teams Roller Mechanic Relationship Specialty Start Date End Date Noelle Tate FNP [facility]. [address] [address] PCP - General Nurse Practitioner Family 01/04/21 Chang Jaimes MD [facility]. [address] [address] [place] Machine Operator CARDIOVASCULAR DISEASE 05/20/17
--- OUTSIDE RECORDS SUMMARY | 2024-12-27 17:00 | XMS_ITS | Encounter Summary ---
Author Organization [facility] Address [address] [facility] [place] [address] Care Team Providers Care Mechanical Project Engineer Name Role Phone Og Phillip MD Unavailable Noelle Tate APRN-CHIEF RADIOLOGIC TECHNOLOGIST Primary Care Provider Kleber Sanderson MD Unavailable Christine Witt Primary Care Provider [phone] Encounter Details Date Type Department Care Team (Late st Contact Info) Description 05/01/[address] [facility] Orthopedics [address] [address] [place] [id number] [address] Social History Tobacco Use Types [...] on filedocumented in this encounter Care Teams Mechanical Project Engineer Relationship Specialty Start Date End Date Noelle Tate, JOB DEVELOPER FOR [employer]-CHIEF RADIOLOGIC TECHNOLOGIST [address] [place] [address] PCP - General 05/10/21 12/03/23 Christine Witt [address] [place] [id number] PCP - General 12/04/23 [place] [id number] [facility] [address] [place] [address] Orthopedic Surgery 02/14/15 Kleber Sanderson MD [address] [facility] [address] [place], [place] [id number] Neurological Surgery 12/04/23 documented as of this encounter
--- OUTSIDE RECORDS SUMMARY | 2024-12-27 17:00 | XMS_ITS | Encounter Summary ---
Author Organization [facility] Address [facility] [place] [address] Care Team Providers Care Senior Escrow Officer Name Role Phone Chang Jaimes MD Unavailable [phone] Mayo Guzman MD Primary Care Provider [phone] Chang Jaimes MD Unavailable [phone] Serena Villa MD Primary Care Pro vider Noelle Tate Primary Care Provider [phone] Encounter Details Date Type Department Care Team (Late st Contact Info) Description 10/23/2018 [facility] at [address] [address] Cecy Mayers MA Social History Tobacco Use Types Packs/Day Years Used Date Smoking Tobacco: Never Smokeless Tobacco: Never Alcohol Use Standard Drinks/Week Comments No 0 (1 standard drink = 0.6 oz pur e alcohol) Comments Unknown Sex and Gender Information Value Date Recorded Sex Assigned at Female 11/19/2024 3:58 PM SPRAY I PAINTER Legal Sex Female 2:32 AM CDT Gender Identity Not on file Sexual Orientation Not on file Occupation Industry Job Start Date Job End Date Not on file Not on file Not on file Not on file documented as of this encounter Progress Notes * ZAC Chauhan-JARVIS - 10/23/2018 9:41 AM CST Labs reviewed. No action needed prior to upcoming procedure. Y I PAINTER documented in this encounter Plan of Treatment Upcoming Encounters Date Type Department Care Team (Late st Contact Info) Description 2025 11:15 AM CDT Office Visit [facility] [address] [place] [phone] Chang Jaimes MD [facility] [address] [place] [address] 05/23/2025 1:20 PM CDT Office Visit [facility] Medical Group Pulmonology Specialty [facility] [address] [place] [phone] Oswald Carrero DO [address] [place], [place] [phone] documented as of this encounter Procedures Procedure [...] documented as of this encounter Care Teams Senior Escrow Officer Relationship Specialty Start Date End Date Mayo Guzman MD [address] [place] [address] PCP - General FAMILY PRACTICE 05/20/17 09/18/19 Chang Jaimes MD [address] [facility] [address] [place] [address] PCP - [facility] Attributed Provider 10/20/15 10/18/20 Serena Villa MD [address] [place] [address] PCP - General FAMILY PRACTICE 09/19/19 01/03/21 Noelle Tate FNP [address] [place] [address] PCP - General Nurse Practitioner Family 01/04/21 Chang Jaimes MD [address] [facility] [address] [place] [address] El Postal Inspector CARDIOVASCULAR DISEASE 05/20/17 documented as of this encounter
--- OUTSIDE RECORDS SUMMARY | 2024-12-27 17:00 | XMS_ITS | Encounter Summary ---
Author Organization [facility] Address [address] [facility] [place] [address] Care Team Providers Care Hog Ribber Name Role Phone Og Phillip MD Unavailable [phone] Noelle Tate APRN-MEDIA SENIOR RECRUITER Primary Care Provider Kleber Sanderson MD Unavailable [phone] Christine Witt Primary Care Provider [phone] Encounter Details Date Type Department Care Team (Late st Contact Info) Description 05/29/2015 Therapy Visit [facility] Orthopedics [address] [address] [place] [address] [address] Social History Tobacco Use Types [...] on filedocumented in this encounter Care Teams Hog Ribber Relationship Specialty Start Date End Date Noelle Tate, COILED COIL INSPECTOR-MEDIA SENIOR RECRUITER [address] [place] [address] PCP - General 05/10/21 12/03/23 Christine Witt [address] [place] [phone] PCP - General 12/04/23 [place] [address] [facility] [address] [place] [address] Orthopedic Surgery 02/14/15 Kleber Sanderson MD [address] [facility] [address] [place], [place] [id number] Neurological Surgery 12/04/23 documented as of this encounter
--- OUTSIDE RECORDS SUMMARY | 2024-12-27 17:01 | XMS_ITS | Encounter Summary ---
Author Organization [facility] Address [facility] [place] [address] Care Team Providers Care Financial Center Manager Name Role Phone Chang Jaimes MD Unavailable [phone] Noelle Tate Primary Care Provider [phone] Encounter Details Date Type Department Care Team (Late Contact Info) Description 10/30/2021 [facility] [address] Cecy Mayers MA Social History [...] Sex Assigned at Female 11/19/2024 3:58 PM HVAC TECH Legal Sex Female 2:32 AM CDT Gender Identity Not on file Sexual Orientation Not on file Occupation Industry Job Start Date Job End Date Not on file Not on file Not on file Not on file documented as of this encounter Plan of Treatment Upcoming Encounters Date Type Department Care Team (Late st Contact Info) Description 2025 11:15 AM CDT [facility] [address] [place] [address] Chang Jaimes MD [address] [place] [address] 05/23/2025 1:20 PM CDT Office Visit [facility] Medical Group Pulmonology Specialty Clinic [address] [address] Oswald Carrero DO [address] [place] [address] documented as of this encounter Procedures Procedure [...] on filedocumented in this encounter Care Teams Financial Center Manager Relationship Specialty Start Date End Date Noelle Tate FNP [facility] [address] [place] [address] PCP - General Nurse Practitioner Family 01/04/21 Chang Jaimes MD [facility] [address] [place] [address] El Mergers And Acquisitions Attorney CARDIOVASCULAR DISEASE 05/20/17 documented as of this encounter
--- OUTSIDE RECORDS SUMMARY | 2024-12-27 17:01 | XMS_ITS | Referral Summary ---
Author Organization [facility] [address] Address [address] [place] [address] Care Team Providers Care Director Hr Communications Name Role Phone Laurie Strickland MD Primary Care Provider [phone] Allergies Active Allergy Reactions Criticality Noted Date [...] on file Legal Sex Female 12:17 AM CUT OUT MACHINE OPERATOR Gender Identity Not on file Sexual [...] of Treatment Not on file Insurance MEDICARE [facility] Care Teams Director Hr Communications Relationship Specialty Start Date End Date Laurie Strickland MD PCP - General 04/15/17
--- OUTSIDE RECORDS SUMMARY | 2024-12-27 17:01 | XMS_ITS | Encounter Summary ---
Author Organization [facility] Address [address] [place] [address] Care Team Providers Care Computer Service Technician Name Role Phone Og Phillip MD Unavailable [phone] Noelle Tate APRN-TURKEY PICKER Primary Care Provider Kleber Sanderson MD Unavailable [phone] Christine Witt Primary Care Provider [phone] Encounter Details Date Type Department Care Team (Late st Contact Info) Description 06/19/2015 Therapy Visit [facility] Orthopedics [address] [address] [place] [address] [address] Social History Tobacco Use Types [...] on filedocumented in this encounter Care Teams Computer Service Technician Relationship Specialty Start Date End Date Noelle Tate, SIDEHAND-TURKEY PICKER [address] [place] [address] PCP - General 05/10/21 12/03/23 Christine Witt [address] [place] [phone] PCP - General 12/04/23 [place] [address] [facility] [address] [place] [address] Orthopedic Surgery 02/14/15 Kleber Sanderson MD [address] [facility] [address] [place], [place] [id number] Neurological Surgery 12/04/23 documented as of this encounter
--- OUTSIDE RECORDS SUMMARY | 2024-12-27 17:01 | XMS_ITS | Continuity of Care Document ---
Author Organization [facility] Address [address] [place] [address] Phone Care Team Providers Care Rotary Cutter Operator Name Role Phone Elijah Nino DO Unavailable Unavailable Advance Directives Directive Yes / No Effective Date File Name No Information Encounters Encounter Description Practice Location Reason(s) For Visit Diagnoses Date Provider Providers Copied on Encounter [facility], [address], [place], [place], [id number], [place] [phone] [facility] No Information Trung Gordon. [address] [place], [address], [place]. tel: [phone] Family History Family Member Type Diagnosis Age At Onset No Information Payers Payer name Insurance type Covered libertarian ID Authoriza timark(s) [employer] SOI CI [id number] Social History Type Description Quantity Date Captured [...]
--- OUTSIDE RECORDS SUMMARY | 2024-12-27 17:01 | XMS_ITS | Referral Summary ---
Author Organization [facility] Address [address] [facility] [place] [address] Care Team Providers Care Spanish Instructor Name Role Phone Og Phillip MD Unavailable [phone] Kleber Sanderson MD Unavailable Christine Witt Primary Care Provider [phone] Source Comments [facility],non-owned Affiliates and Associated Physician Practices is amultiple site organization consisting of ambulatory clinics and hospital sitesin [place], [place], [place]. This disclosure is being madepursuant to the Care Everywhere program and may not contain all information available regarding this patient. Last updated 18.[facility] Allergies Active Allergy Reactions Criticality Noted Date [...] 2015 IMO Updt S/P knee replacement 05/02/2015 Social History [...] Comments Blood Pressure 164/84 12/04/2023 9:59 AM MUSICIAN INSTRUMENTAL Pulse 76 12/04/2023 9:59 AM MUSICIAN INSTRUMENTAL Temperature 36.9 C (98.5 F) 01/08/2019 10:08 AM CDT Respiratory Rate 16 01/08/2019 10:08 AM CDT Oxygen Saturation 94% 01/08/2019 10:08 AM CDT Inhaled Oxygen Concentration - - Weight 108.9 kg (240 lb) 12/04/2023 9:59 AM MUSICIAN INSTRUMENTAL Height 165.1 cm (5' 5 ) 12/04/2023 9:59 AM MUSICIAN INSTRUMENTAL Body Mass Index 39.94 12/04/2023 9:59 AM MUSICIAN INSTRUMENTAL Functional Status Functional Status Response Date of [...] on file Medical Devices Implanted Type Area It Risk And Assurance Manager Device Identifier Shelf Expiration Date Model / Serial / Lot Alexey Bone Fullerton Hv Implanted:Qty: 1 on 04/17/2015 by Og Phillip MD at [facility] Right: Knee [employer] 10/20/2016 [id number] / / [id number] Ins Kn Vangurd Fem Cocr R-Intlok 70mm Implanted:Qty: 1 on 04/17/2015 by Og Phillip MD at [facility] Right: Knee [employer] 03/20/2025 [id number] / / [id number] Ty Tibial I Beam Fix Bar 71mm Implanted:Qty: 1 on 04/17/2015 by Og Phillip MD at [facility] Right: Knee [employer] 02/17/2025 [id number] / / [id number] Ruben Pat Arcom Wire Polyeth Xsm 28 X 8 Implanted:Qty: 1 on 04/17/2015 by Og Phillip MD at [facility] Right: Knee [employer] 02/01/2020 [id number] / / [id number] Brdg Tib Karina Stbl 12mm X 71mm Implanted:Qty: 1 on 04/17/2015 by Og Phillip MD at [facility] Right: Knee [employer] 02/23/2020 [id number] / / [id number] Vangrd Ant Stblzd Brg 10mm X 75mm Implanted:Qty: 1 on 09/04/2015 by Og Phillip MD at [facility] Left: Knee [employer] 03/23/2020 [id number] / / [id number] Alexey Bone Fullerton Hv Implanted:Qty: 1 on 09/04/2015 by Og Phillip MD at [facility] Left: Knee [employer] 04/18/2017 [id number] / / [id number] Ruben Slater Wire Polyeth Xsm 28 X 8 Implanted:Qty: 1 on 09/04/2015 by Og Phillip MD at [facility] Left: Knee [employer] 07/19/2020 [id number] / / [id number] Ins Kn Vangurd Fem Cocr L-Intlok 70.0mm Implanted:Qty: 1 on 09/04/2015 by Og Phillip MD at [facility] Left: Knee [employer] 08/19/2024 [id number] / / [id number] Ty Tibial I Beam Fix Bar 75mm Implanted:Qty: 1 on 09/04/2015 by Og Phillip MD at [facility] Left: Knee [employer] 11/19/2024 [id number] / / [id number] Administered Medications Advance Directives Documents on File Type Date Recorded Patient Donor Technician Expl anation Adv Directive/Living Will/POA 04/24/2015 11:25 PM * Full Code (Latest Code Status on File) Date Activated Date Inactivated Comments 09/04/2015 10:45 AM 09/07/2015 4:32 PM * Full Code Date Activated Date Inactivated Comments 04/17/2015 11:36 AM 04/21/2015 3:21 PM Care Teams Spanish Instructor Relationship Specialty Start Date End Date EduarChristine [address] [place] [address] PCP - General 12/04/23 [place] [address] [facility] [address] [place] [address] Orthopedic Surgery 02/14/15 Kleber Sanderson MD [facility] [facility] [address] [place] [address] Neurological Surgery 12/04/23
--- OUTSIDE RECORDS SUMMARY | 2024-12-27 17:01 | XMS_ITS | Clinical Summary ---
Author Organization [facility] Address [address] [facility] [place] [address] Care Team Providers Care Supervisor Model Making Name Role Phone Og Phillip MD Unavailable Kleber Sanderson MD Unavailable Christine Witt Primary Care Provider [phone] Source Comments [facility],non-owned Affiliates and Associated Physician Practices is amultiple site organization consisting of ambulatory clinics and hospital sitesin [place], [place], [place] and [place]. This disclosure is being madepursuant to the Care Everywhere program and may not contain all information available regarding this patient. Last updated 18.[facility] Allergies Active Allergy Reactions Criticality Noted [...] Comments Blood Pressure 164/84 12/04/2023 9:59 AM SUPERVISOR RECLAMATION Pulse 76 12/04/2023 9:59 AM SUPERVISOR RECLAMATION Temperature 36.9 C (98.5 F) 01/08/2019 10:08 AM CDT Respiratory Rate 16 01/08/2019 10:08 AM CDT Oxygen Saturation 94% 01/08/2019 10:08 AM CDT Inhaled Oxygen Concentration - - Weight 108.9 kg (240 lb) 12/04/2023 9:59 AM SUPERVISOR RECLAMATION Height 165.1 cm (5' 5 ) 12/04/2023 9:59 AM SUPERVISOR RECLAMATION Body Mass Index 39.94 12/04/2023 9:59 AM SUPERVISOR RECLAMATION Plan of Treatment Health Maintenance Due Date [...] of 2) 2002 COVID-19 VACCINE (1 - season) 2024 INFLUENZA VACCINE (#1) 2024 9, 07/09/2018, 07/10/2017, [...] this topic Medical Devices Implanted Type Area Whiskey Filterer Device Identifier Shelf Expiration Date Model / Serial / Lot Alexey Bone Alverda Hv Implanted:Qty: 1 on 04/17/2015 by Og Phillip MD at [facility] Right: Knee [employer] 10/20/2016 [id number] / / [id number] Ins Kn Vangurd Fem Cocr R-Intlok 70mm Implanted:Qty: 1 on 04/17/2015 by Og Phillip MD at [facility] Right: Knee [employer] 03/20/2025 [id number] / / [id number] Ty Tibial I Beam Fix Bar 71mm Implanted:Qty: 1 on 04/17/2015 by Og Phillip MD at [facility] Right: Knee [employer] 02/17/2025 [id number] / / [id number] Butn Pat Arcom Wire Polyeth Xsm 28 X 8 Implanted:Qty: 1 on 04/17/2015 by Og Phillip MD at [facility] Right: Knee [employer] 02/01/2020 [id number] / / [id number] Brdg Tib Karina Stbl 12mm X 71mm Implanted:Qty: 1 on 04/17/2015 by Og Phillip MD at [facility] Right: Knee [employer] 02/23/2020 [id number] / / [id number] Vangrd Ant Stblzd Brg 10mm X 75mm Implanted:Qty: 1 on 09/04/2015 by Og Phillip MD at [facility] Left: Knee [employer] 03/23/2020 [id number] / / [id number] Alexey Bone Alverda Hv Implanted:Qty: 1 on 09/04/2015 by Og Phillip MD at [facility] Left: Knee [employer] 04/18/2017 [id number] / / [id number] Butn Pat Arcom Wire Polyeth Xsm 28 X 8 Implanted:Qty: 1 on 09/04/2015 by Og Phillip MD at [facility] Left: Knee [employer] 07/19/[id number] / / [id number] Ins Kn Vangurd Fem Cocr L-Intlok 70.0mm Implanted:Qty: 1 on 09/04/2015 by Og Phillip MD at [facility] Left: Knee [employer] 08/19/2024 [id number] / / [id number] Ty Tibial I Beam Fix Bar 75mm Implanted:Qty: 1 on 09/04/2015 by Og Phillip MD at [facility] Left: Knee [employer] 11/19/2024 [id number] / / [id number] Advance Directives Documents on File Type Date Recorded Patient Corporate Driver Expl anation Adv Directive/Living Will/POA 04/24/2015 11:25 PM * Full Code (Latest Code Status on File) Date Activated Date Inactivated Comments 09/04/2015 10:45 AM 09/07/2015 4:32 PM * Full Code Date Activated Date Inactivated Comments 04/17/2015 11:36 AM 04/21/2015 3:21 PM Care Teams Supervisor Model Making Relationship Specialty Start Date End Date Christine Witt [address] [place] [address] PCP - General 12/04/23 [place] [address] [facility] [address] [place] [address] Orthopedic Surgery 02/14/15 Kleber Sanderson MD [address] [facility] [address] [place] [address] Neurological Surgery 12/04/23
--- OUTSIDE RECORDS SUMMARY | 2024-12-27 17:01 | XMS_ITS | Patient Health Summary ---
Author Organization [facility] Address [address] [place] [address] Care Team Providers Care Wire Temperer Name Role Phone Og Phillip MD Unavailable Kleber Sanderson MD Unavailable Christine Witt Primary Care Provider [phone] Note from Formerly named [facility],non-owned Affiliates and Associated Physician Practices is amultiple site organization consisting of ambulatory clinics and hospital sitesin [place], [place], [place] and [place]. This disclosure is being madepursuant to the Care Everywhere program and may not contain all information available regarding this patient. Last updated 18.[facility] Allergies * Iodine(Anaphylaxis) -High Criticality Medications * [...] Comments Blood Pressure 164/84 12/04/2023 9:59 AM ADJUSTMENT EXAMINER Pulse 76 12/04/2023 9:59 AM ADJUSTMENT EXAMINER Temperature 36.9 C (98.5 F) 01/08/2019 10:08 AM CDT Respiratory Rate 16 01/08/2019 10:08 AM CDT Oxygen Saturation 94% 01/08/2019 10:08 AM CDT Inhaled Oxygen Concentration - - Weight 108.9 kg (240 lb) 12/04/2023 9:59 AM ADJUSTMENT EXAMINER Height 165.1 cm (5' 5 ) 12/04/2023 9:59 AM ADJUSTMENT EXAMINER Body Mass Index 39.94 12/04/2023 9:59 AM ADJUSTMENT EXAMINER Medical Devices Implanted Type Area Piece Dyer Device Identifier Shelf Expiration Date Model / Serial / Lot Alexey Bone [place] Hv Implanted:Qty: 1 on 04/17/2015 by Og Phillip MD at [facility] Right: Knee [employer] 10/20/2016 [id number] / / [id number] Ins Kn Vangurd Fem Cocr R-Intlok 70mm Implanted:Qty: 1 on 04/17/2015 by Og Phillip MD at [facility] Right: Knee [employer] 03/20/2025 [id number] / / [id number] Ty Tibial I Beam Fix Bar 71mm Implanted:Qty: 1 on 04/17/2015 by Og Phillip MD at [facility] Right: Knee [employer] 02/17/2025 [id number] / / [id number] Butn Pat Arcom Wire Polyeth Xsm 28 X 8 Implanted:Qty: 1 on 04/17/2015 by Og Phillip MD at [facility] Right: Knee [employer] 02/01/2020 [id number] / / [id number] Brdg Tib Karina Stbl 12mm X 71mm Implanted:Qty: 1 on 04/17/2015 by Og Phillip MD at [facility] Right: Knee [employer] 02/23/2020 [id number] / / [id number] Vangrd Ant Stblzd Brg 10mm X 75mm Implanted:Qty: 1 on 09/04/2015 by Og Phillip MD at [facility] Left: Knee [employer] 03/23/2020 [id number] / / [id number] Alexey Bone [place] Hv Implanted:Qty: 1 on 09/04/2015 by Og Phillip MD at [facility] Left: Knee [employer] 04/18/2017 [id number] / / [id number] Butn Pat Arcom Wire Polyeth Xsm 28 X 8 Implanted:Qty: 1 on 09/04/2015 by Og Phillip MD at [facility] Left: Knee [employer] 07/19/[id number] / / [id number] Ins Kn Vangurd Fem Cocr L-Intlok 70.0mm Implanted:Qty: 1 on 09/04/2015 by Og Phillip MD at [facility] Left: Knee [employer] 08/19/2024 [id number] / / [id number] Ty Tibial I Beam Fix Bar 75mm Implanted:Qty: 1 on 09/04/2015 by Og Phillip MD at [facility] Left: Knee [employer] 11/19/2024 [id number] / / [id number] Procedures * MRI LUMBAR SPINE WO CONTRAST(Performed [...] KNEE BILAT 3 VIEWS (09/10/2016 12:17 PM ADJUSTMENT EXAMINER) Anatomical Region Laterality Modality Lower Extremity Computed Radiogr aphy Narrative 09/10/2016 3:28 PM ADJUSTMENT EXAMINER Chika Pena 09/10/2016 3:28 PM Please see [...] L2-3 interspace under fluoroscopic guidance using a yhgj-mk-htdrflxpsa technique with preservative free Normal Saline. There [...] on how to reach the clinic or used car salesperson physician at anytime for questions or complaints. Estimated blood loss during procedure 0 ml. Ankush Christy MD DIAGNOSTIC IMAGIN G ORDERABLES * XR KNEE 3 VW LEFT (10/17/2015 11:29 AM ADJUSTMENT EXAMINER) Anatomical Region Laterality Modality Lower Extremity Radiographic Leighann ging Narrative 10/17/2015 12:22 PM ADJUSTMENT EXAMINER Jia Boss, RT(R) 10/17/2015 12:22 PM See Chart For Xray Report Og Phillip MD DIAGNOSTIC IMAGING O RDERABLES * (ABNORMAL) HGB HCT PANEL (09/06/2015 5:21 AM ADJUSTMENT EXAMINER) Only the most recent of5 resultswithin the time period is included. Hemoglobin 11.2(L) 12.0 - 15.6 gm/dL 09/06/2015 5:31 AM ADJUSTMENT EXAMINER [facility] Hematocrit 34.2(L) 35.9 - 45.5 % 09/06/2015 5:31 AM ADJUSTMENT EXAMINER [facility] Blood BLOOD SPECIMEN / Unknown 09/06/2015 5:21 AM ADJUSTMENT EXAMINER 09/06/2015 5:25 AM ADJUSTMENT EXAMINER Og Phillip MD LAB - HEMATOLOGY ORD ERABLES [facility] [address] [place] [address] * NEURAXIAL BLOCK (09/04/2015 7:47 AM ADJUSTMENT EXAMINER) Narrative Myron Valenzuela, ANJU-SHREDDING FLOOR EQUIPMENT OPERATOR - 09/04/2015 7:47 AM ADJUSTMENT EXAMINER Myron Valenzuela, ANJU-SHREDDING FLOOR EQUIPMENT OPERATOR 09/04/2015 7:47 AM NEURAXIAL BLOCK Patient Location: [...] of2 resultswithin the time period is included. [facility] Signature Culture Negative for MRSA/MSSA BETO 08/09/2015 6:[address] [facility] MICROBIOLOGY Microbiology SPECIMEN FROM NASAL FOSSAE / Unknown 08/08/2015 2:32 PM CDT 08/08/2015 3:13 PM CDT Og Phillip MD LAB - MICROBIOLOGY O RDERABLES [facility] MICROBIOLOGY [address] [place], [place] [address], [facility] [phone] * XR KNEE 3 VW RIGHT (05/30/2015 [...] (04/17/2015 8:59 AM CDT) Narrative Myron Valenzuela APRN-SHREDDING FLOOR EQUIPMENT OPERATOR - 04/17/2015 8:59 AM CDT JAMAL Lockhart [...] - 6.0 % 03/21/2015 4:15 PM CDT [facility] Basophils % 0.7 0.0 - 2.0 % 03/21/2015 4:15 PM CDT [facility] Immature Granulocytes 0.1 0 - 1 % 03/21/2015 4:15 PM CDT [facility] Neutrophil Absolute 3.79 2.01 - 7.14 x10^9/L 03/21/2015 4:15 PM CDT [facility] Lymphocytes Absolute 2.19 1.07 - 3.94 x10^9/L 03/21/2015 4:15 PM CDT [facility] Monocytes Absolute 0.75 0.26 - 1.07 x10^9/L 03/21/2015 4:15 PM CDT [facility] Eosinophils Absolute 0.09 0 - 0.47 x10^9/L 03/21/2015 4:15 PM CDT [facility] Basophils Absolute 0.05 0 - 0.08 x10^9/L 03/21/2015 4:15 PM CDT [facility] Immature Granulocytes Absolute 0.01 0.00 - 0.06 x10^9/L 03/21/2015 4:15 PM CDT [facility] Blood BLOOD SPECIMEN / Unknown 03/21/2015 3:39 PM CDT 03/21/2015 4:08 PM CDT Og Phillip MD LAB - HEMATOLOGY ORD ERABLES [facility] [address] [place] [address] * (ABNORMAL) COMPREHENSIVE METABOLIC PANEL (03/21/2015 3:39 PM CDT) [facility] Glucose 100 74 - 106 mg/dL 03/21/2015 4:26 PM CDT [facility] Sodium 140 136 - 145 mmol/L 03/21/2015 4:26 PM CDT [facility] Potassium 3.4(L) 3.5 - 5.1 mmol/L 03/21/2015 4:26 PM CDT [facility] Chloride 104 98 - 107 mmol/L 03/21/2015 4:26 PM CDT [facility] CO2 32(H) 22 - 31 mmol/L 03/21/2015 4:26 PM CDT [facility] Calcium 9.2 8.5 - 10.1 mg/dL 03/21/2015 4:26 PM CDT [facility] Anion Gap 4(L) 5 - 15 mmol/L 03/21/2015 4:26 PM CDT [facility] BUN 21 7 - 21 mg/dL 03/21/2015 4:26 PM CDT [facility] Creatinine 0.73 0.50 - 1.30 mg/dL 03/21/2015 4:26 PM CDT [facility] eGFR by MDRD >60 >60 mL/min/1.7 2 03/21/2015 4:26 PM CDT [facility] eGFR [...] - 5.0 gm/dL 03/21/2015 4:26 PM CDT [facility] Bilirubin Total 0.3 0.2 - 1.0 mg/dL 03/21/2015 4:26 PM CDT [facility] Blood BLOOD SPECIMEN / Unknown 03/21/2015 3:39 PM CDT 03/21/2015 4:08 PM CDT Og Phillip MD LAB - CHEMISTRY NATALEE MADERA [facility] Organization Address City/State/ZIP Co de Phone Number [facility] [address] [place] [address] * EKG 12-LEAD (03/21/2015 3:29 PM CDT) Ventricular Rate 61 BPM [facility] Atrial Rate 61 BPM [facility] P-R Interval 132 ms [facility] QRS Duration ms 90 ms [facility] Q-T Interval ms 430 ms [facility] QTC Calculation (Bezet) 432 ms [facility] Calculated P [place] 16 degrees [facility] Calculated R [place] -9 degrees [facility] Calculated T [place] 0 degrees [facility] Interpretation EKG Normal sinus rhythm Moderate voltage criteria for LVH, may be normal variant Borderline ECG No previous ECGs available Confirmed by LEONARDO MERRITT MD ([id number]) on 03/22/2015 7:53:39 AM [facility] 03/21/2015 3:29 PM CDT 03/22/2015 7:53 AM CDT Og Phillip MD ECG ORDERABLES [facility] * MRI SPINE LUMBAR WITH [...] Creatinine POCT 1.1 0.7 - 1.2 mg/dL [facility] POCT TESTING QC Verified yes Yes [facility] POC T TESTING Blood specimen (specimen) BLOOD SPECIMEN / Unknown 07/03/2010 2:51 PM CDT Kleber Sanderson MD LAB - POINT OF CARE ORDERABLES [facility] POCT TESTING [address] [place] [address] * XR LUMBAR SPINE 4+ VW (06/12/2010 [...] MD DIAGNOSTIC LEIGHANN GING ORDERABLES Care Teams Wire Temperer Relationship Specialty Start Date End Date Christine Witt [address] [place] [address] PCP - General 12/04/23 [place] [address] [place] [address] Orthopedic Surgery 02/14/15 Kleber Sanderson MD [address] [place] [address] Neurological Surgery 12/04/23
--- OUTSIDE RECORDS SUMMARY | 2024-12-27 17:01 | XMS_ITS | Encounter Summary ---
Author Organization [facility] Address [facility]ly [facility] [place] [address] Care Team Providers Care Oil Prospecting Observer Name Role Phone Chang Jaimes MD Unavailable [phone] Mayo Guzman MD Primary Care Provider [phone] Chang Jaimes MD Unavailable [phone] Serena Villa MD Primary Care Pro vider Noelle Tate Primary Care Provider [phone] Encounter Details Date Type Department Care Team (Late st Contact Info) Description 06/17/2017 Abstract [facility] AT [address] [address] Cecy Mayers MA Social History Tobacco Use Types Packs/Day Years Used Date Smoking Tobacco: Never Smokeless Tobacco: Never Alcohol Use Standard Drinks/Week Comments No 0 (1 standard drink = 0.6 oz pur e alcohol) Comments Unknown Sex and Gender Information Value Date Recorded Sex Assigned at Female 11/19/2024 3:58 PM MANAGER STRATEGIC SOURCING Legal Sex Female 2:32 AM CDT Gender [...] Description 2025 11:15 AM CDT Office Visit [facility] [address] [place] [phone] Chang Jaimes MD [address] [place] [address] 05/23/2025 1:20 PM CDT Office Visit [facility] Pulmonology Specialty [facility] [address] [place] [phone] Oswald Carrero DO [address] [place], [place] [phone] documented as of this encounter Procedures Procedure [...] encounter Results * LIPID PANEL (08/05/2018) Pathologist [facility] CHOLESTEROL 95 HDL 34 TRIGLYCERIDES 66 LDL (CALCULATED) 41 08/05/2018 [facility] Final Result * BASIC METABOLIC PANEL (08/05/2018) Pathologist [facility] SODIUM S/P/B 140 POTASSIUM S/P/B 4.0 CO2 28 CHLORIDE S/P/B 105 GLUCOSE 99 mg/dL CALCIUM S/P/B 9.1 BUN 19 CREATININE S/P/B 0.8 0.5 - 1.0 EGFR NON-AFR. AMER. >60 <=90 08/05/2018 us Doc [facility] Final Result * CBC (OUTSIDE LAB) (08/05/2018) Pathologist [facility] WBC 4.8 HGB 12.9 HCT 39 PLT 173 08/05/2018 us Doc [facility] LAB-OUTSIDE/ABSTRACTED Final Result * HEPATIC FUNCTION PANEL (08/04/2018) Pathologist [facility] ALBUMIN S/P/B 4.2 3.5 - 5.0 ALKALINE PHOSPHATASE S/P/B 89 ALT 35 AST 30 BILIRUBIN TOTAL S/P/B 0.7 TOTAL PROTEIN S/P/B 7.0 08/04/2018 us Doc [facility] Final Result * VITAMIN D, 25 OH (01/20/2018) Pathologist [facility] VITAMIN D 25 HYDROXY S/P/B 43 01/20/2018 [facility] Doc [facility] Final Result * CBC (OUTSIDE LAB) (01/20/2018) Pathologist [facility] WBC 5.6 HGB 14.2 HCT 42.1 PLT 189 01/20/2018 us Doc [facility]-OUTSIDE/ABSTRACTED Final Result * COMPREHENSIVE METABOLIC PANEL (01/20/2018) Pathologist [facility] SODIUM S/P/B 142 POTASSIUM S/P/B 4.6 CO2 [...] Final Result * LIPID PANEL (01/20/2018) Pathologist [facility] CHOLESTEROL 134 HDL 52 TRIGLYCERIDES 95 NON HDL CHOLESTEROL 82 LDL (CALCULATED) 64 01/20/2018 us Doc [facility] Final Result * HCT (ABSTRACTED) (06/16/2017) Pathologist [facility] HCT 42.5 06/16/2017 us Doc [facility]-OUTSIDE/ABSTRACTED Final Result * CREATININE (06/16/2017) Pathologist [facility] CREATININE S/P/B 0.92 0.5 - 1.0 EGFR [...] documented as of this encounter Care Teams Oil Prospecting Observer Relationship Specialty Start Date End Date Mayo Guzman MD [address] [place] [address] PCP - General FAMILY PRACTICE 05/20/17 09/18/19 Chang Jaimes MD [address] [place] [address] PCP - [facility] Attributed Provider 10/20/15 10/18/20 Serena Villa MD [address] [place] [address] PCP - General FAMILY PRACTICE 09/19/19 01/03/21 Noelle Tate FNP [address] [place] [address] PCP - General Nurse Practitioner Family 01/04/21 Chang Jaimes MD [address] [place], [place] [address] [place] CARDIOVASCULAR DISEASE 05/20/17 documented as of this encounter
--- OUTSIDE RECORDS SUMMARY | 2024-12-27 17:01 | XMS_ITS | Clinical Summary ---
Author Organization [facility] [address] Address [address] [place] [address] Care Team Providers Care Extruding Machine Operator Name Role Phone Laurie Strickland MD Primary Care Provider [phone] Allergies Active Allergy Reactions Criticality Noted Date [...] on file Legal Sex Female 12:17 AM ABSTRACT MAKER Gender Identity Not on file Sexual Orientation [...] vaccine 65+ Completed 05/23/2018, 03/21 Insurance MEDICARE [facility] [place] [address] Care Teams Extruding Machine Operator Relationship Specialty Start Date End Date Laurie Strickland MD PCP - General 04/15/17
== END 2024-12-27 14:34 | disposition home or self-care (01) ==
LOC: CHSLAB 14:36
PROVIDERS: PCP Family Medicine; Visit Provider Family Medicine
DX: J06.9 Acute upper respiratory infection, unspecified (principal)
CPT/HCPCS: 87637

== ENCOUNTER 2025-02-17 10:44 | Outpatient (CLI) | payer MEDICARE, OTHER, SELFPAY ==
--- OUTSIDE RECORDS SUMMARY | 2025-02-17 11:41 | XMS_ITS | Encounter Summary ---
Author Organization [facility] Address [facility] [place] [address] Care Team Providers Care Bodybuilder Name Role Phone Chang Jaimes MD Unavailable [phone] Mayo Guzman MD Primary Care Provider [phone] Chang Jaimes MD Unavailable [phone] Serena Villa MD Primary Care Pro vider Noelle Tate Primary Care Provider [phone] Encounter Details Date Type Department Care Team (Late st Contact Info) Description 06/17/2017 Abstract [facility] AT [address] [address] Cecy Mayers MA Social History Tobacco Use Types Packs/Day Years Used Date Smoking Tobacco: Never Smokeless Tobacco: Never Alcohol Use Standard Drinks/Week Comments No 0 (1 standard drink = 0.6 oz pur e alcohol) Comments Unknown Sex and Gender Information Value Date Recorded Sex Assigned at Female 11/19/2024 3:58 PM STEAM FITTER Legal Sex Female 2:32 AM CDT Gender [...] Description 2025 11:15 AM CDT Office Visit [facility] [address] [place] [phone] Chang Jaimes MD [address] [place] [address] 06/13/2025 1:30 PM CDT Office Visit [facility] Pulmonology Specialty [facility] [address] [place] [phone] Oswald Carrero DO [address] [place], [place] [phone] documented as of this encounter Procedures Procedure [...] encounter Results * LIPID PANEL (08/05/2018) Pathologist [facility] CHOLESTEROL 95 HDL 34 TRIGLYCERIDES 66 LDL (CALCULATED) 41 08/05/2018 us Doc [facility] Final Result * BASIC METABOLIC PANEL (08/05/2018) Pathologist [facility] SODIUM S/P/B 140 POTASSIUM S/P/B 4.0 CO2 28 CHLORIDE S/P/B 105 GLUCOSE 99 mg/dL CALCIUM S/P/B 9.1 BUN 19 CREATININE S/P/B 0.8 0.5 - 1.0 EGFR NON-AFR. AMER. >60 <=90 08/05/2018 us Doc [facility] Final Result * CBC (OUTSIDE LAB) (08/05/2018) Pathologist [facility] WBC 4.8 HGB 12.9 HCT 39 PLT 173 08/05/2018 us Doc [facility]-OUTSIDE/ABSTRACTED Final Result * HEPATIC FUNCTION PANEL (08/04/2018) Pathologist [facility] ALBUMIN S/P/B 4.2 3.5 - 5.0 ALKALINE PHOSPHATASE S/P/B 89 ALT 35 AST 30 BILIRUBIN TOTAL S/P/B 0.7 TOTAL PROTEIN S/P/B 7.0 08/04/2018 us Doc [facility] Final Result * VITAMIN D, 25 OH (01/20/2018) Pathologist [facility] VITAMIN D 25 HYDROXY S/P/B 43 01/20/2018 us Doc [facility] Final Result * CBC (OUTSIDE LAB) (01/20/2018) Pathologist [facility] WBC 5.6 HGB 14.2 HCT 42.1 PLT 189 01/20/2018 us Doc [facility]-OUTSIDE/ABSTRACTED Final Result * COMPREHENSIVE METABOLIC PANEL (01/20/2018) Pathologist [facility] SODIUM S/P/B 142 POTASSIUM S/P/B [...] Final Result * LIPID PANEL (01/20/2018) Pathologist [facility] CHOLESTEROL 134 HDL 52 TRIGLYCERIDES 95 NON HDL CHOLESTEROL 82 LDL (CALCULATED) 64 01/20/2018 us Doc [facility] Final Result * HCT (ABSTRACTED) (06/16/2017) Pathologist [facility] HCT 42.5 06/16/2017 us Doc [facility]-OUTSIDE/ABSTRACTED Final Result * CREATININE (06/16/2017) Pathologist [facility] CREATININE S/P/B 0.92 0.5 - [...] documented as of this encounter Care Teams Bodybuilder Relationship Specialty Start Date End Date Mayo Guzman MD [address] [place] [address] PCP - General FAMILY PRACTICE 05/20/17 09/18/19 Chang Jaimes MD [address] [place] [address] [facility] Attributed Provider 10/20/15 10/18/20 Serena Villa MD [address] [place] [address] PCP - General FAMILY PRACTICE 09/19/19 01/03/21 Noelle Tate FNP [address] [place] [address] PCP - General Nurse Practitioner Family 01/04/21 Chang Jaimes MD [address] [place], [place] [address] El Board Operator CARDIOVASCULAR DISEASE 05/20/17 documented as of this encounter
--- OUTSIDE RECORDS SUMMARY | 2025-02-17 11:41 | XMS_ITS | Clinical Summary ---
Author Organization [facility] Address 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 07/03/2017 Dizziness 05/27/2017 Presence of both artificial knee joints 09/09/20 16 Osteoarthrosis involving lower leg 05/02/2015 Overview (11/18/2019): Overview: 2015 IMO Updt S/P knee replacement 05/02/2015 Essential (primary) hypertension Atypical chest pain Encounters Date Type Department Care Team Description 12/02/2024 Telephone [facility] [address] Chang Jaimes MD Surgical Clearance 11/23/2024 Scan [facility] INFO SRVCS Scanned, Doc Med Group from Last 3 Months Immunizations Immunization Administration Dates Next Due Fluzone 6 Months+ Quad (0.5 mL Prefilled Syringe ) 07/21/2019 Influenza (Generic) 07/27/2015 Influenza Adult (Generic) 07/09/2018,07/10/2017 Pneumococcal (Pneumovax 23) 05/23/2018 Shingrix 11/27/2018 Tdap (Boostrix) 02/05/2019 Zoster (Zostavax) [address] Unt/0.65Ml 10/20/2017 Family History Medical History Relation [...] Sex Assigned at Female 11/19/2024 3:58 PM SLIP MAKER Legal Sex Female 2:32 AM CDT Gender Identity Not on file Sexual Orientation Not on file Occupation Industry Job Start Date Job End Date Not on file Not on file Not on file Not on file Last Filed Vital Signs Vital Sign Reading Time Taken Comments Blood Pressure 132/84 10/21/2024 9:43 AM SLIP MAKER Pulse 75 10/21/2024 9:43 AM SLIP MAKER Temperature 36.4 C (97.5 F) 04/12/2024 11:25 AM CDT Respiratory Rate 18 04/12/2024 11:25 AM CDT Oxygen Saturation 95% 10/21/2024 9:43 AM SLIP MAKER Inhaled Oxygen Concentration - - Weight 113 kg (249 lb 3.2 oz) 10/21/2024 9:43 AM SLIP MAKER Height 162.6 cm (5' 4 ) 10/21/2024 9:43 AM SLIP MAKER Body Mass Index 42.78 10/21/2024 9:43 AM SLIP MAKER Plan of Treatment Upcoming Encounters Date Type Department Care Team (Late st Contact Info) Description 2025 11:15 AM CDT [facility] [address] [place] [phone] Chang Jaimes MD [address] [facility] [address] [place], [place] [phone] 06/13/2025 1:30 PM CDT Office Visit [facility] Medical Group Pulmonology Specialty Clinic [facility] [address] [place] [phone] Oswald Carrero DO [address] [place] [address] Health Maintenance Due Date Last Done Comments Colorectal Cancer Screening Colonoscopy (10 Years) 1952 Hepatitis C 1970 Mammogram Screening 1992 RSV Immunization or 60+ Years (1 - Risk 60-74 years 1-dose series) 2012 Annual Medicare Wellness Visit 2017 Dexa Scan (General) 2017 Zoster Vaccines (3 of 3) 01/22/2019 11/27/2018, 10/2017 Pneumococcal Vaccine: 50+ Years (2 of 2 - PCV) 05/23/2019 05/23/2018 ASCVD LDL 02/18/2024 02/17/2023, 10/20, 12/25/2020, Additional history exists COVID-19 Vaccine ( season) 2024 PHQ-2 (Physician [place]) 10/20/2024 DTaP, Tdap and Td Vaccines (2 [...] 125 <200.0 MG/DL 02/17/2023 12:39 PM CDT [facility] TRIGLYCERIDES 89 <150 MG/DL 02/17/2023 12:39 PM CDT [facility] HDL 52 >40.0 MG/DL 02/17/2023 12:39 PM CDT [facility] LDL (CALCULATED) 55 <100 MG/DL 02/18/20 12:39 PM CDT [facility] NON HDL CHOLESTEROL 73 <130 MG/DL 02/17 12:39 PM CDT [facility] CHOL/HDL RATIO 2.4 0.0 - 4.5 02/17/2023 12:39 PM CDT [facility] VLDL CALCULATION 18 5 - 55 MG/DL 02/17/2023 12:39 PM CDT [facility] LIPID INTERPRETATION 02/17/2023 12:39 PM CDT [facility] Comment: [facility] CONCENSUS REPORT RECOMMENDATIONS: ADULT CHILD LOW RISK: CHOLESTEROL <200 <170 TRIGLYCERIDE <150 --- HDL >=60 --- LDL <100 <110 BORDERLINE: CHOLESTEROL 200-239 170-199 TRIGLYCERIDE 150-199 --- HDL 40-59 --- LDL 100-159 110-129 HIGH RISK: CHOLESTEROL >=240 >=200 TRIGLYCERIDE >=200 --- HDL <40 --- LDL >=160 >=130 02/17/2023 11:5 4 AM CDT [facility] Final Result [facility] [address] [facility] [address], from Last 3 Months or Most Recently Relevant to Health Maintenance Insurance [facility]IC[facility] Advance Directives * Full Code (Latest Code Status on File) Date Activated Date Inactivated Comments 11/18/2019 5:38 AM 11/18/2019 6:01 PM Care Teams Wide Area Network Administrator Relationship Specialty Start Date End Date Noelle Tate FNP [facility]. [address] [address] PCP - General Nurse Practitioner Family 01/04/21 Chang Jaimes MD [facility]. [address] [address] [place] Corporate Bond Trader CARDIOVASCULAR DISEASE 05/20/17
--- OUTSIDE RECORDS SUMMARY | 2025-02-17 11:41 | XMS_ITS | Encounter Summary ---
Author Organization [facility] Address Formerly [facility] [place] [address] Care Team Providers Care Post Graduate Intern Name Role Phone Chang Jaimes MD Unavailable [phone] Mayo Guzman MD Primary Care Provider [phone] Chang Jaimes MD Unavailable [phone] Serena Villa MD Primary Care Pro vider Noelle Tate Primary Care Provider [phone] Encounter Details Date Type Department Care Team (Late st Contact Info) Description 10/23/2018 [facility] at [address] [address] Cecy Mayers MA Social History Tobacco Use Types Packs/Day Years Used Date Smoking Tobacco: Never Smokeless Tobacco: Never Alcohol Use Standard Drinks/Week Comments No 0 (1 standard drink = 0.6 oz pur e alcohol) Comments Unknown Sex and Gender Information Value Date Recorded Sex Assigned at Female 11/19/2024 3:58 PM CONSTRUCTION EQUIPMENT TECHNICIAN Legal Sex Female 2:32 AM CDT Gender Identity Not on file Sexual Orientation Not on file Occupation Industry Job Start Date Job End Date Not on file Not on file Not on file Not on file documented as of this encounter Progress Notes * ZAC Chauhan-JARVIS - 10/23/2018 9:41 AM CST Labs reviewed. No action needed prior to upcoming procedure. TRUCTION EQUIPMENT TECHNICIAN documented in this encounter Plan of Treatment Upcoming Encounters Date Type Department Care Team (Late st Contact Info) Description 2025 11:15 AM CDT Office Visit [facility] [address] [place] [address] Chang Jaimes MD [facility] [address] [place] [address] 06/13/2025 1:30 PM CDT Office Visit [facility] Pulmonology Specialty [facility] [address] [place] [phone] Oswald Carrero DO [address] [place], [place] [id number] documented as of this encounter Procedures Procedure [...] documented as of this encounter Care Teams Post Graduate Intern Relationship Specialty Start Date End Date Mayo Guzman MD [address] [place] [address] PCP - General FAMILY PRACTICE 05/20/17 09/18/19 Chang Jaimes MD [address] [facility] [address] [place] [address] PCP - [facility] Attributed Provider 10/20/15 10/18/20 Serena Villa MD [address] [place] [address] PCP - General FAMILY PRACTICE 09/19/19 01/03/21 Noelle Tate FNP [address] [place] [address] PCP - General Nurse Practitioner Family 01/04/21 Chang Jaimes MD [address] [facility] [address] [place] [address] El Brooch And Bracelet Maker CARDIOVASCULAR DISEASE 05/20/17 documented as of this encounter
--- OUTSIDE RECORDS SUMMARY | 2025-02-17 11:41 | XMS_ITS | Encounter Summary ---
Author Organization [facility] Address [facility] [place] [address] Care Team Providers Care Band Reamer Machine Operator Name Role Phone Chang Jaimes MD Unavailable [phone] Noelle Tate Primary Care Provider [phone] Encounter Details Date Type Department Care Team (Late Contact Info) Description 10/30/2021 [facility] [address] Cecy Mayers MA Social History Tobacco Use [...] Sex Assigned at Female 11/19/2024 3:58 PM SOAKER HIDES Legal Sex Female 2:32 AM CDT Gender Identity Not on file Sexual Orientation Not on file Occupation Industry Job Start Date Job End Date Not on file Not on file Not on file Not on file documented as of this encounter Plan of Treatment Upcoming Encounters Date Type Department Care Team (Late st Contact Info) Description 2025 11:15 AM CDT [facility] [place] [facility] [address] [place] [phone] Chang Jaimes MD [address] [place] [address] 06/13/2025 1:30 PM CDT Office Visit [facility] Pulmonology Specialty Clinic [address] [address] Oswald Carrero DO [address] [place] [address] documented as of this encounter Procedures Procedure [...] on filedocumented in this encounter Care Teams Band Reamer Machine Operator Relationship Specialty Start Date End Date Noelle Tate FNP [facility] [address] [place] [address] PCP - General Nurse Practitioner Family 01/04/21 Chang Jaimes MD [facility] [address] [place] [address] El Senior Mechanical Estimator CARDIOVASCULAR DISEASE 05/20/17 documented as of this encounter
--- OUTSIDE RECORDS SUMMARY | 2025-02-17 11:41 | XMS_ITS | Encounter Summary ---
Author Organization [facility] Address [address] [place] [address] Care Team Providers Care People Manager Name Role Phone Og Phillip MD Unavailable [phone] Noelle Tate APRN-DAYTIME CAREGIVER Primary Care Provider Kleber Sanderson MD Unavailable Christine Witt Primary Care Provider Encounter Details Date Type Department Care Team (Late st Contact Info) Description 05/01/2015 Therapy Visit [facility] Orthopedics [address] [address] [place] [address] [address] Social History Tobacco Use Types Packs/Day Years Used Date Smoking Tobacco: Never Alcohol Use Standard Drinks/Week Comments Yes 0 (1 standard drink = 0.6 oz pur e alcohol) Comments No Sex and Gender Information Value Date Recorded Sex Assigned at Not on file Legal Sex Female 9:13 AM DIE MAINTENANCE Gender Identity Not on file Sexual Orientation Not on file documented as of this encounter Functional Status * Is person deaf or have serious hearing difficulty? Answer Date of Assessment Author No 04/17/2015 11:57 AM Kingston Burt RN * Is person blind or have serious difficulty seeing? Answer Date of Assessment Author No 04/17/2015 11:57 AM Kingston Burt RN * Does person have serious difficulty walking/climbing stairs? Answer Date of Assessment Author No 04/17/2015 11:57 AM Kingston Burt RN * Does person have difficulty dressing/bathing? Answer Date of Assessment Author No 04/17/2015 11:57 AM Kingston Burt RN * Does person have difficulty doing errands alone? Answer Date of Assessment Author No 04/17/2015 11:57 AM Kingston Butr RN documented as of this encounter Mental Status * Does person have difficulty concentrating/remembering/making decisions? Answer Entry Date Author No 04/17/2015 11:57 AM Kingston Burt RN documented in this encounter Plan of Treatment Not on file documented as of this encounter Visit Diagnoses Not on filedocumented in this encounter Care Teams People Manager Relationship Specialty Start Date End Date Noelle Tate, DATA ANALYTICS ANALYST-DAYTIME CAREGIVER [address] [place] [address] PCP - General 05/10/21 12/03/23 Christine Witt [address] [place] [address] PCP - General 12/04/23 [place] [address] [facility] [address] [place] [address] Orthopedic Surgery 02/14/15 Kleber Sanderson MD [address] [facility] [address] [place], [place] [address] Neurological Surgery 12/04/23 documented as of this encounter
--- OUTSIDE RECORDS SUMMARY | 2025-02-17 11:41 | XMS_ITS | Clinical Summary ---
Author Organization [facility] [address] Address [address] [place] [address] Care Team Providers Care It Communications Specialist Name Role Phone Laurie Strickland MD Primary Care Provider [phone] Allergies Active Allergy Reactions Criticality Noted Date [...] on file Legal Sex Female 12:17 AM FREEZING MACHINE OPERATOR Gender Identity Not on file [...] vaccine 65+ Completed 05/23/2018, 03/21 [place] [address] [facility] [place] [address] Care Teams It Communications Specialist Relationship Specialty Start Date End Date Laurie Strickland MD PCP - General 04/15/17
--- OUTSIDE RECORDS SUMMARY | 2025-02-17 11:41 | XMS_ITS | Encounter Summary ---
Author Organization [facility] Address [address] [facility] [place] [address] Care Team Providers Care Manager Landscape Name Role Phone Og Phillip MD Unavailable Noelle Tate APRN-ASSOCIATE SOFTWARE APPLICATION ENGINEER Primary Care Provider Kleber Sanderson MD Unavailable Christine Witt Primary Care Provider [phone] Encounter Details Date Type Department Care Team (Late st Contact Info) Description 05/29/2015 Therapy Visit [facility] Orthopedics [address] [address] [place] [address] [address] Social History Tobacco Use Types Packs/Day Years Used Date Smoking Tobacco: Never Alcohol Use Standard Drinks/Week Comments Yes 0 (1 standard drink = 0.6 oz pur e alcohol) Comments No Sex and Gender Information Value Date Recorded Sex Assigned at Not on file Legal Sex Female 9:13 AM IRISH MOSS GATHERER Gender Identity Not on file Sexual Orientation [...] 04/17/2015 11:57 AM Kingston Burt RN documented as of this encounter Mental Status * Does person have difficulty concentrating/remembering/making decisions? Answer Entry Date Author No 04/17/2015 11:57 AM Kingston Burt RN documented in this encounter Plan of Treatment Not on file documented as of this encounter Visit Diagnoses Not on filedocumented in this encounter Care Teams Manager Landscape Relationship Specialty Start Date End Date Noelle Tate, AQUATIC LIFE LABORER-ASSOCIATE SOFTWARE APPLICATION ENGINEER [address] [place] [address] PCP - General 05/10/21 12/03/23 Christine Witt [address] [place] [address] PCP - General 12/04/23 [place] [address] [facility] [address] [place] [address] Orthopedic Surgery 02/14/15 Kleber Sanderson MD [address] [facility] [address] [place], [place] [address] Neurological Surgery 12/04/23 documented as of this encounter
--- OUTSIDE RECORDS SUMMARY | 2025-02-17 11:41 | XMS_ITS | Encounter Summary ---
Author Organization [facility] Address [address] [facility] [place] [address] Care Team Providers Care Director Women Name Role Phone Og Phillip MD Unavailable [phone] Noelle Tate APRN-OCEAN TRANSPORTATION INTERMEDIARY Primary Care Provider Kleber Sanderson MD Unavailable Christine Witt Primary Care Provider [phone] Encounter Details Date Type Department Care Team (Late st Contact Info) Description 06/19/2015 Therapy Visit [facility] Orthopedics [address] [address] [place] [address] [address] Social History Tobacco Use Types Packs/Day Years Used Date Smoking Tobacco: Never Alcohol Use Standard Drinks/Week Comments Yes 0 (1 standard drink = 0.6 oz pur e alcohol) Comments No Sex and Gender Information Value Date Recorded Sex Assigned at Not on file Legal Sex Female 9:13 AM DIMMER BOARD OPERATOR Gender Identity Not on file Sexual [...] on filedocumented in this encounter Care Teams Director Women Relationship Specialty Start Date End Date Noelle Tate, CHEMICAL SPRAYER-OCEAN TRANSPORTATION INTERMEDIARY [address] [place] [address] PCP - General 05/10/21 12/03/23 Christine Witt [address] [place] [address] PCP - General 12/04/23 [place] [address] [facility] [address] [place] [address] Orthopedic Surgery 02/14/15 Kleber Sanderson MD [address] [facility] [address] [place], [place] [address] Neurological Surgery 12/04/23 documented as of this encounter
--- OUTSIDE RECORDS SUMMARY | 2025-02-17 11:41 | XMS_ITS | Continuity of Care Document ---
Author Organization [facility] Address [address] [place] [address] Phone Care Team Providers Care Railcar Switchman Name Role Phone Elijah Nino DO Unavailable Unavailable Advance Directives Directive Yes / No Effective Date File Name No Information Encounters Encounter Description Practice Location Reason(s) For Visit Diagnoses Date Provider Providers Copied on Encounter [facility], [address], [place], [place], [address], [place] tel:[phone] [facility] No Information Trung Gordon. [address] [place], [address], [place]. tel: [phone] Family History Family Member Type Diagnosis Age At Onset No Information Payers Payer name Insurance type Covered alliance party ID Authoriza timark(s) [employer] SOI CI [id number] Social History Type Description Quantity Date Captured [...]
--- OUTSIDE RECORDS SUMMARY | 2025-02-17 11:41 | XMS_ITS | Referral Summary ---
Author Organization [facility] [address] Address [address] [place] [address] Care Team Providers Care Medical Administrative Assistant Name Role Phone Laurie Strickland MD Primary Care Provider [phone] Allergies Active Allergy Reactions Criticality Noted Date [...] on file Legal Sex Female 12:17 AM SQUEEGEE TENDER Gender Identity Not on file Sexual Orientation [...] of Treatment Not on file Insurance MEDICARE [facility] Care Teams Medical Administrative Assistant Relationship Specialty Start Date End Date Laurie Strickland MD PCP - General 04/15/17
--- OUTSIDE RECORDS SUMMARY | 2025-02-17 11:42 | XMS_ITS | Clinical Summary ---
Author Organization [facility] Address [address] [facility] [place] [address] Care Team Providers Care Sourcing Associate Name Role Phone Og Phillip MD Unavailable Kleber Sanderson MD Unavailable [phone] Christine Witt Primary Care Provider [phone] Source Comments [facility],non-owned Affiliates and Associated Physician Practices is amultiple site organization consisting of ambulatory clinics and hospital sitesin [place], [place], [place] and [place]. This disclosure is being madepursuant to the Care Everywhere program and may not contain all information available regarding this patient. Last updated 18.[facility] Allergies Active Allergy Reactions Criticality Noted Date Comments Iodine Anaphylaxis High 07/03/2010 HIVES WITH IV CONTRAST Medications * Be aware that medications may not be up to date on this document. Alwaysverify current medications with the patient. Vitamin D3 (CHOLECALCIFERO L) 2000 UNITS CAPS capsule Take 1 (one) [...] 2015 O Updt S/P knee replacement 05/02/2015 Family History [...] = 0.6 oz pur e alcohol) occasional Comments No Sex and Gender Information Value Date Recorded Sex Assigned at Not on file Legal Sex Female 9:13 AM HAULPAK DRIVER Gender Identity Not on file Sexual Orientation Not on file Occupation Industry Job Start Date Job End Date RETIRED Not on file Not on file Not on file Last Filed Vital Signs Vital Sign Reading Time Taken Comments Blood Pressure 164/84 12/04/2023 9:59 AM HAULPAK DRIVER Pulse 76 12/04/2023 9:59 AM HAULPAK DRIVER Temperature 36.9 C (98.5 F) 01/08/2019 10:08 AM CDT Respiratory Rate 16 01/08/2019 10:08 AM CDT Oxygen Saturation 94% 01/08/2019 10:08 AM CDT Inhaled Oxygen Concentration - - Weight 108.9 kg (240 lb) 12/04/2023 9:59 AM HAULPAK DRIVER Height 165.1 cm (5' 5 ) 12/04/2023 9:59 AM HAULPAK DRIVER Body Mass Index 39.94 12/04/2023 9:59 AM HAULPAK DRIVER Plan of Treatment Health Maintenance Due Date [...] 2002 COVID-19 VACCINE (1 - season) 2024 DEPRESSION SCREENING 10/20/2024 INFLUENZA VACCINE (Season Ended) 2025 07/21/2019, 07/09/2018, 07/10/2017, Additional history exists Respiratory Syncytial Virus (RSV) Vaccine Pt: or [...] complete this topic MENINGOCOCCAL (Group B) VACCINE SHARED DECISION-MAKING Aged Out No longer eligible based on patient's age to complete this topic MENINGOCOCCAL GROUPS A/C/Y/W VACCINE Aged Out No longer eligible based on patient's age to complete this topic Medical Devices Implanted Type Area Health Communications Specialist Device Identifier Shelf Expiration Date Model / Serial / Lot Alexey Bone Glennie Hv Implanted:Qty: 1 on 04/17/2015 by Og Phillip MD at [facility] Right: Knee [employer] 10/20/2016 [id number] / / [id number] Ins Kn Vangurd Fem Cocr R-Intlok 70mm Implanted:Qty: 1 on 04/17/2015 by Og Phillip MD at [facility] Right: Knee [employer] 03/20/2025 [id number] / / [id number] Ty Tibial I Beam Fix Bar 71mm Implanted:Qty: 1 on 04/17/2015 by Og Phillip MD at [facility] Right: Knee [employer] 02/17/2025 [id number] / / [id number] Butn Pat Arcom Wire Polyeth Xsm 28 X 8 Implanted:Qty: 1 on 04/17/2015 by Og Phillip MD at [facility] Right: Knee [employer] 02/01/2020 [id number] / / [id number] Brdg Tib Karina Stbl 12mm X 71mm Implanted:Qty: 1 on 04/17/2015 by Og Phillip MD at [facility] Right: Knee [employer] 02/23/2020 [id number] / / [id number] Vangrd Ant Stblzd Brg 10mm X 75mm Implanted:Qty: 1 on 09/04/2015 by Og Phillip MD at [facility] Left: Knee [employer] 03/23/2020 [id number] / / [id number] Alexey Bone Glennie Hv Implanted:Qty: 1 on 09/04/2015 by Og Phillip MD at [facility] Left: Knee [facility] 04/18/2017 [id number] / / [id number] Butn Pat Arcom Wire Polyeth Xsm 28 X 8 Implanted:Qty: 1 on 09/04/2015 by Og Phillip MD at [facility] Left: Knee [employer] 07/19/[id number] / / [id number] Ins Kn Vangurd Fem Cocr L-Intlok 70.0mm Implanted:Qty: 1 on 09/04/2015 by Og Phillip MD at [facility] Left: Knee [employer] 08/19/2024 [id number] / / [id number] Ty Tibial I Beam Fix Bar 75mm Implanted:Qty: 1 on 09/04/2015 by Og Phillip MD at [facility] Left: Knee [employer] 11/19/2024 [id number] / / [id number] Insurance MEDICARE MEDICARE [employer] SELF PAY NO INSURANCE Member Subscriber Plan / Payer (Ef fective for All Dates) Name:Fletcher Janette M Member ID:Not on file Relation to Subscriber:Not on file Name:JANETTE BYNUM Subscriber ID:Not on file (Home) Address: [address] [place] [address] Payer ID:Not on file Group ID:Not on file Type:Self Pay Address: [facility]IC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 Fabric Worker Expl anation Adv Directive/Living Will/POA 04/24/2015 11:25 PM * Full Code (Latest Code Status on File) Date Activated Date Inactivated Comments 09/04/2015 10:45 AM 09/07/2015 4:32 PM * Full Code Date Activated Date Inactivated Comments 04/17/2015 11:36 AM 04/21/2015 3:21 PM Care Teams Sourcing Associate Relationship Specialty Start Date End Date Christine Witt [address] [place] [address] PCP - General 12/04/23 [place] [address] [facility] [address] [place] [address] Orthopedic Surgery 02/14/15 Kleber Sanderson MD [address] [facility] [address] [place] [address] Neurological Surgery 12/04/23
[2025-02-17 19:20] LABS: Basophils Absolute Auto 0.1 K/mm3 (0.0-0.1); Basophils Percent Auto 0.9 % (0.2-1.2); Eosinophils Absolute Auto 0.1 K/mm3 (0-0.3); Eosinophils Percent Auto 1.6 % (0-4.4); Hematocrit 43.8 % (37.0-47.0); Immature Granulocyte Absolute 0.01 K/mm3 (0.00-0.031); Immature Granulocyte Percent A 0.1 % (0-0.5); Lymphocytes Absolute Auto 2.58 K/mm3 (0.9-3.2); Lymphocytes Percent Auto 30.3 % (18.3-44.2); Mean Corpuscular Hemoglobin 32.2 pg (26-34); Mean Corpuscular Volume 100.7 fl (80-100); Mean Platelet Volume 10.7 fl (7.4-10.4); Monocytes Absolute Auto 0.8 K/mm3 (0.1-0.6); Monocytes Percent Auto 9.9 % (2.6-8.5); Neutrophils Absolute Auto 4.9 K/mm3 (1.3-6.7); Neutrophils Percent Auto 57.2 % (45.5-73.1); Platelet Count Result 140 k/mm3 (150-375); Red Blood Count 4.35 M/mm3 (4.2-5.4); Red Cell Distribution Width 13.2 % (11.5-14.5); White Blood Count 8.5 K/mm3 (4.5-10.0)
[2025-02-17 21:05] LABS: Alanine Aminotransferase 22 U/L (6-35); Albumin Level 4.3 g/dL (3.5-5.1); Alkaline Phosphatase 91 U/L (38-126); Anion Gap 8 mmol/L (4-12); Aspartate Amino Transferase 45 U/L (14-36); Bilirubin,Total 0.6 mg/dL (0.2-1.3); Blood Urea Nitrogen 18 mg/dL (7-17); Calcium 9.8 mg/dL (8.4-10.2); Carbon Dioxide 30 mmol/L (22-30); Chloride 103 mmol/L (98-107); Cholesterol 143 mg/dL (0-200); Estimated Glomerular Filt Rate > 60; Glucose 99 mg/dL (65-110); HDL Direct 49 mg/dL; Potassium 4.4 mmol/L (3.4-5.0); Sodium 141 mmol/L (137-145); Triglycerides 109 mg/dL (<150)
[2025-02-17 21:17] LABS: LDL Cholesterol Direct 57 mg/dL
[2025-02-17 21:21] LABS: Free T4 Free Thyroxine 0.97 ng/dL (0.78-2.19); Vitamin D 25 Hydroxy 37.1 ng/mL
[2025-02-17 21:48] LABS: Hemoglobin A1C 6.1 % (<5.7)
== END 2025-02-17 10:45 | disposition home or self-care (01) ==
LOC: ANHGOSHLAB 10:45
PROVIDERS: PCP Nurse Practitioner Family; Visit Provider Nurse Practitioner Family
DX: E78.5 Hyperlipidemia, unspecified (principal); E03.9 Hypothyroidism, unspecified; R73.9 Hyperglycemia, unspecified; E55.9 Vitamin D deficiency, unspecified; I10 Essential (primary) hypertension
CPT/HCPCS: 36415; 80053; 80061; 82306; 83036; 84439; 84443; 85025

== ENCOUNTER 2025-05-14 07:43 | Outpatient (CLI) | payer MEDICARE, OTHER, SELFPAY ==
--- NOTE | ~2025-05-14 | DEXA_ITS ---
Bone Density Report Name: MACRINA PALMER Age: 75 Sex: Female Ethnicity: White Date of : 1950 Indication: postmenopausal; screening for osteoporosis; height loss; hysterectomy; Referring Provider: VANESSA ULRICH Study: Bone densitometry was performed. Exam Date: May 14, 2025 Accession number: [id number] Bone Density: Region BMD T-score Z-score Classification AP Spine(L1-L4) 1.370 2.9 5.2 Normal Femoral Neck (Left) 0.640 -1.9 0.1 Osteopenia Total Hip (Left) 0.989 0.4 2.1 Normal Femoral Neck (Right) 0.686 -1.5 0.5 Osteopenia Total Hip (Right) 1.060 1.0 2.6 Normal Total Hip Mean 1.024 0.7 2.4 Normal World Health Organization criteria for BMD impression classify patients as: Normal (T-score at or above -1.0), Osteopenia (T-score between -1.0 and -2.5), or Osteoporosis (T-score at or below -2.5). 10-year Fracture Risk(1): Major Osteoporotic Fracture 10% Hip Fracture 2.0% Reported Risk Factors: [place] (), Neck BMD=0.640, BMI=41.9 (1) FRAX(R) Version 3.08. Fracture probability calculated for an untreated patient. Fracture probability may be lower if the patient has received treatment. Clinical Information Provided by Patient: Has used the following medications: Vitamin D, Calcium Has the following medical conditions: Hysterectomy Patient maximum height was 65 Menopause Age: 54 Onset of menses at age 14 Number of children 2 Impression: The patient has low bone mass, based on the Left Femoral Neck T-score. The patient has an estimated ten-year risk of hip fracture of 2% and an estimated ten-year risk of major fracture of 10%, based on the WHO FRAX algorithm. Discussion: BONE DENSITY IS LOW AT ONE OR MORE SKELETAL SITES. This patient's lowest T-score is low at one or more skeletal sites. It meets the World Health Organization's (WHO) criteria for ?low bone mass? (T-score between -1.0 and -2.5). The patient's 10-year risk of fracture as calculated by FRAX is less than the threshold where pharmacological therapy is recommended by the National Osteoporosis Foundation (NOF). However, all treatment decisions require clinical judgment and consideration of individual patient factors, including patient preferences, comorbidities, previous drug use, risk factors not captured in the FRAX model (e.g., frailty, falls, vitamin D deficiency, increased bone turnover, interval significant decline in bone density) and possible under or overestimation of fracture risk by FRAX. The patient should follow a healthful lifestyle (good nutrition with adequate calcium and vitamin D, and appropriate weight-bearing exercise). Follow-Up: Consider repeating this study in 2 to 3 years to reassess this patient's status, or sooner if there is some new clinical indication. Reported by: ISMA on 05/14/2025 8:34:00 AM. Reviewed, dictated and finalized at location A.
--- OUTSIDE RECORDS SUMMARY | 2025-05-14 07:46 | XMS_ITS | Encounter Summary ---
Author Organization [facility] Address [address] [facility] [place] [address] Care Team Providers Care Supervisor Ornamental Ironworking Name Role Phone Og Phillip MD Unavailable [phone] Noelle Tate APRN-REIKI PRACTITIONER Primary Care Provider Kleber Sanderson MD Unavailable Christine Witt Primary Care Provider Encounter Details Date Type Department Care Team (Late st Contact Info) Description 05/01/2015 Therapy Visit [facility] Orthopedics [address] [address] [place] [address] [address] Social History Tobacco Use Types Packs/Day Years Used Date Smoking Tobacco: Never Alcohol Use Standard Drinks/Week Comments Yes 0 (1 standard drink = 0.6 oz pur e alcohol) Comments No Sex and Gender Information Value Date Recorded Sex Assigned at Not on file Legal Sex Female 9:13 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 MASTER/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 Gender Identity Not on file Sexual Orientation [...] on filedocumented in this encounter Care Teams Supervisor Ornamental Ironworking Relationship Specialty Start Date End Date Noelle Tate, POWDER WORKER-REIKI PRACTITIONER [address] [place] [address] PCP - General 05/10/21 12/03/23 Christine Witt [address] [place] [address] PCP - General 12/04/23 [place] [address] [facility] [address] [place] [address] Orthopedic Surgery 02/14/15 Kleber Sanderson MD [address] [facility] [address] [place], [place] [address] Neurological Surgery 12/04/23 documented as of this encounter
--- OUTSIDE RECORDS SUMMARY | 2025-05-14 07:46 | XMS_ITS | Continuity of Care Document ---
Author Organization [facility] Address [address] [place] [address] Phone Care Team Providers Care Polysom Tech Name Role Phone Elijah Nino DO Unavailable Unavailable Advance Directives Directive Yes / No Effective Date File Name No Information Encounters Encounter Description Practice Location Reason(s) For Visit Diagnoses Date Provider Providers Copied on Encounter [facility], [address], [place], [place], [id number], [place] tel:[phone] [facility] No Information Trung Gordon. [address] [place], [address], [place]. tel: [phone] Family History Family Member Type Diagnosis Age At Onset No Information Payers Payer name Insurance type Covered libertarian ID Authoriza timark(s) [employer] SOI CI [id number] Social History Type Description Quantity Date Captured [...]
--- OUTSIDE RECORDS SUMMARY | 2025-05-14 07:46 | XMS_ITS | Encounter Summary ---
Author Organization [facility] Address [address] [facility] [place] [address] Care Team Providers Care Crm Marketing Executive Name Role Phone Og Phillip MD Unavailable Noelle Tate APRN-INSULATION MACHINE OPERATOR Primary Care Provider Kleber Sanderson MD Unavailable Christine Witt Primary Care Provider Encounter Details Date Type Department Care Team (Late st Contact Info) Description 06/19/2015 Therapy Visit [facility] Orthopedics [address] [address] [place] [address] [address] Social History Tobacco Use Types Packs/Day Years Used Date Smoking Tobacco: Never Alcohol Use Standard Drinks/Week Comments Yes 0 (1 standard drink = 0.6 oz pur e alcohol) Comments No Sex and Gender Information Value Date Recorded Sex Assigned at Not on file Legal Sex Female 9:13 AM TRANSPORT ASSISTANT Gender Identity Not on file Sexual Orientation [...] on filedocumented in this encounter Care Teams Crm Marketing Executive Relationship Specialty Start Date End Date Noelle Tate, BRAKE RELINER-INSULATION MACHINE OPERATOR [address] [place] [address] PCP - General 05/10/21 12/03/23 Christine Witt [address] [place] [address] PCP - General 12/04/23 [place] [address] [facility] [address] [place] [address] Orthopedic Surgery 02/14/15 Kleber Sanderson MD [address] [facility] [address] [place], [place] [address] Neurological Surgery 12/04/23 documented as of this encounter
--- OUTSIDE RECORDS SUMMARY | 2025-05-14 07:47 | XMS_ITS | Encounter Summary ---
Author Organization [facility] Address [address] [place] [address] Care Team Providers Care Motor And Generator Assembler Name Role Phone Og Phillip MD Unavailable [phone] Noelle Tate APRN-CHIEF ENGINEER'S HELPER Primary Care Provider Kleber Sanderson MD Unavailable Christine Witt Primary Care Provider [phone] Encounter Details Date Type Department Care Team (Late st Contact Info) Description 05/29/2015 Therapy Visit [facility] Orthopedics [address] [address] [place] [address] [address] Social History Tobacco Use Types Packs/Day Years Used Date Smoking Tobacco: Never Alcohol Use Standard Drinks/Week Comments Yes 0 (1 standard drink = 0.6 oz pur e alcohol) Comments No Sex and Gender Information Value Date Recorded Sex Assigned at Not on file Legal Sex Female 9:13 AM LITERACY TUTOR Gender Identity Not on file Sexual Orientation [...] Assessment Author No 04/17/2015 11:57 AM [place] uBrt RN * Does person have difficulty dressing/bathing? [...] on filedocumented in this encounter Care Teams Motor And Generator Assembler Relationship Specialty Start Date End Date Noelle Tate, STRINGED INSTRUMENT REPAIRER-CHIEF ENGINEER'S HELPER [address] [place] [address] PCP - General 05/10/21 12/03/23 Christine Witt [address] [place] [address] PCP - General 12/04/23 [place] [address] [facility] [address] [place] [address] Orthopedic Surgery 02/14/15 Kleber Sanderson MD [address] [facility] [address] [place], [place] [id number] Neurological Surgery 12/04/23 documented as of this encounter
--- OUTSIDE RECORDS SUMMARY | 2025-05-14 07:47 | XMS_ITS | Clinical Summary ---
Author Organization [facility] Address [address] [place] [address] Care Team Providers Care Manufacturing Engineer Paint Name Role Phone Og Phillip MD Unavailable Kleber Sanderson MD Unavailable [phone] Christine Witt Primary Care Provider [phone] Source Comments [facility],non-owned Affiliates and Associated Physician Practices is amultiple site organization consisting of ambulatory clinics and hospital sitesin [place], [place], [place] and [place]. This disclosure is being madepursuant to the Care Everywhere program and may not contain all information available regarding this patient. Last updated 18.[facility] Allergies Active Allergy Reactions Criticality Noted [...] on file Legal Sex Female 9:13 AM MANUFACTURED BUILDINGS REPAIRER Gender Identity Not on file Sexual Orientation Not on file Occupation Industry Job Start Date Job End Date RETIRED Not on file Not on file Not on file Last Filed Vital Signs Vital Sign Reading Time Taken Comments Blood Pressure 164/84 12/04/2023 9:59 AM MANUFACTURED BUILDINGS REPAIRER Pulse 76 12/04/2023 9:59 AM MANUFACTURED BUILDINGS REPAIRER Temperature 36.9 C (98.5 F) 01/08/2019 10:08 AM CDT Respiratory Rate 16 01/08/2019 10:08 AM CDT Oxygen Saturation 94% 01/08/2019 10:08 AM CDT Inhaled Oxygen Concentration - - Weight 108.9 kg (240 lb) 12/04/2023 9:59 AM MANUFACTURED BUILDINGS REPAIRER Height 165.1 cm (5' 5) 12/04/2023 9:59 AM MANUFACTURED BUILDINGS REPAIRER Body Mass Index 39.94 12/04/2023 9:59 AM MANUFACTURED BUILDINGS REPAIRER Plan of Treatment Health Maintenance Due Date [...] season) 2024 DEPRESSION SCREENING 10/20/2024 INFLUENZA VACCINE (#1) 2025 , 07/09/2018, 07/10/2017, Additional history exists Respiratory Syncytial [...] this topic Medical Devices Implanted Type Area Rda Device Identifier Shelf Expiration Date Model / Serial / Lot Alexey Bone [place] Implanted:Qty: 1 on 04/17/2015 by Og Phillip MD at [facility] Right: Knee [employer] 10/20/2016 [id number] / / [id number] Ins Kn Vangurd Fem Cocr R-Intlok 70mm Implanted:Qty: 1 on 04/17/2015 by Og Phillip MD at [facility] Right: Knee [employer] 03/20/2025 [id number] / / [id number] Ty Tibial I Beam Fix Bar 71mm Implanted:Qty: 1 on 04/17/2015 by Og Phillip MD at [facility] Right: Knee [employer] 02/17/2025 [id number] / / [id number] Butn Pat Arcom Wire Polyeth Xsm 28 X 8 Implanted:Qty: 1 on 04/17/2015 by Og Phillip MD at [facility] Right: Knee [employer] 02/01/2020 [id number] / / [id number] Brdg Tib Karina Stbl 12mm X 71mm Implanted:Qty: 1 on 04/17/2015 by Og Phillip MD at [facility] Right: Knee [employer] 02/23/2020 [id number] / / [id number] Vangrd Ant Stblzd Brg 10mm X 75mm Implanted:Qty: 1 on 09/04/2015 by Og Phillip MD at [facility] Left: Knee [employer] 03/23/2020 [id number] / / [id number] Alexey Bone [place] Hv Implanted:Qty: 1 on 09/04/2015 by Og Phillip MD at [facility] Left: Knee [facility] 04/18/2017 [id number] / / [id number] Butn Pat Arcom Wire Polyeth Xsm 28 X 8 Implanted:Qty: 1 on 09/04/2015 by Og Phillip MD at [facility] Left: Knee [employer] 07/19/[id number] / / [id number] Ins Kn Vangurd Fem Cocr L-Intlok 70.0mm Implanted:Qty: 1 on 09/04/2015 by Og Phillip MD at [facility] Left: Knee [employer] 08/19/2024 [id number] / / [id number] Ty Tibial I Beam Fix Bar 75mm Implanted:Qty: 1 on 09/04/2015 by Og Phillip MD at [facility] Left: Knee [employer] 11/19/2024 [id number] / / [id number] Insurance MEDICARE MEDICARE [employer] SELF PAY NO INSURANCE Member Subscriber Plan / Payer (Ef fective for All Dates) Name:Briecelsoraciel Janette Rodolfo Member ID:Not on file Relation to Subscriber:Not on file Name:JANETTE BYNUM Subscriber ID:Not on file (Home) Address: [address] [place] [address] Payer ID:Not on file Group ID:Not on file Type:Self Pay Address: [facility] [id number] Advance Directives Documents on File Type Date Recorded Patient Service Desk Associate Expl anation Adv Directive/Living Will/POA 04/24/2015 11:25 PM * Full Code (Latest Code Status on File) Date Activated Date Inactivated Comments 09/04/2015 10:45 AM 09/07/2015 4:32 PM * Full Code Date Activated Date Inactivated Comments 04/17/2015 11:36 AM 04/21/2015 3:21 PM Care Teams Manufacturing Engineer Paint Relationship Specialty Start Date End Date Christine Witt [address] [place] [address] PCP - General 12/04/23 [place] [id number] [facility] [address] [place] [address] Orthopedic Surgery 02/14/15 Kleber Sanderson MD [address] [facility] [address] [place] [address] Neurological Surgery 12/04/23
--- OUTSIDE RECORDS SUMMARY | 2025-05-14 07:47 | XMS_ITS | Referral Summary ---
Author Organization [facility] [address] Address [address] [place] [address] Care Team Providers Care Manager Beauty Name Role Phone Laurie Strickland MD Primary Care Provider [phone] Allergies Active Allergy Reactions Criticality Noted Date [...] 20 mg by mouth. Active FLUZONE HIGH-DOSE 2018-19, PF, 180 mcg/0.5 mL syringe TO BE [...] on file Legal Sex Female 12:17 AM ONCOLOGY ACCOUNT SPECIALIST Gender Identity Not on file Sexual Orientation Not on file Last Filed Vital Signs Vital Sign Reading Time Taken Comments Blood Pressure 159/88 07/05/2022 6:44 PM CDT Pulse 64 07/05/2022 6:44 PM CDT Temperature 36.9 C (98.5 F) 07/05/2022 6:44 PM CDT Respiratory Rate 16 07/05/2022 6:4 4 PM CDT Oxygen Saturation 95% 07/05/2022 6:44 PM CDT Inhaled Oxygen Concentration - - Weight 113.7 kg (250 lb 9.6 oz) 07/05/2022 6:44 PM CDT Height 165.1 cm (5' 5) 07/05/2022 6:44 PM CDT Body Mass Index 41.7 07/05/2022 6:44 PM CDT Plan of Treatment Not on file Insurance MEDICARE [facility] Care Teams Manager Beauty Relationship Specialty Start Date End Date aLurie Strickland MD PCP - General 04/15/17
--- OUTSIDE RECORDS SUMMARY | 2025-05-14 07:47 | XMS_ITS | Encounter Summary ---
Author Organization [facility] Healthcare Address [address] [place] [address] Care Team Providers Care Cash Register Mechanic Name Role Phone Laurie Strickland MD Primary Care Provider [phone] Encounter Details Date Type Department Care Team (Late st Contact Info) Description 08/05/2018 Orders Only [facility] Health Information Management [address] [place] [address] Scanning, Provider Social History Tobacco Use Types Packs/Day Years Used Date Smoking Tobacco: Never Comments Unknown Sex and Gender Information Value Date Recorded Sex Assigned at Not on file Legal Sex Female 12:17 AM LINEN ROOM CUSTODIAN Gender Identity Not on file Sexual Orientation Not on file documented as of this encounter Plan of Treatment Scheduled Orders Name Type Priority Associated Diagnoses Orde r Schedule Cardiology Document Scan Cardiac Services Ordered: 08/05/2018 documented as of this encounter Visit Diagnoses Not on filedocumented in this encounter Care Teams Cash Register Mechanic Relationship Specialty Start Date End Date Laurie Strickland MD PCP - General 04/15/17 documented as of this encounter
--- OUTSIDE RECORDS SUMMARY | 2025-05-14 07:47 | XMS_ITS | Clinical Summary ---
Author Organization [facility] [address] Address [address] [place] [address] Care Team Providers Care Recovery Operator Helper Name Role Phone Laurie Strickland MD Primary Care Provider [phone] Allergies Active Allergy Reactions Criticality Noted Date [...] on file Legal Sex Female 12:17 AM HOUSING LIAISON Gender Identity Not on file Sexual Orientation [...] 01/02/2021, Additional history exists Influenza Vaccine (#1) 2025 , 07/24/2020, 07/09/2018, Additional history exists DTaP/Tdap/Td Vaccine (2 - Td or Tdap) 02/05/2029 02/05/2019 Pneumococcal vaccine 65+ Completed 05/23/2018, 03/21 Insurance MEDICARE [facility] [place] [address] Care Teams Recovery Operator Helper Relationship Specialty Start Date End Date Laurie Strickland MD PCP - General 04/15/17
== END 2025-05-14 07:44 | disposition home or self-care (01) ==
LOC: ANHIMG 07:44
PROVIDERS: PCP Nurse Practitioner Family; Visit Provider Nurse Practitioner Family
DX: Z78.0 Asymptomatic menopausal state (principal); M85.852 Other specified disorders of bone density and structure, left thigh; M85.851 Other specified disorders of bone density and structure, right thigh
CPT/HCPCS: 77080

== ENCOUNTER 2025-10-04 15:22 | Outpatient (CLI) | payer MEDICARE, OTHER, SELFPAY ==
--- OUTSIDE RECORDS SUMMARY | 2025-10-04 17:39 | XMS_ITS | Encounter Summary ---
Author Organization [facility] Address [facility] [place] [address] Care Team Providers Care Division Order Analyst Name Role Phone Chang aJimes MD Unavailable [phone] Noelle Tate Primary Care Provider [phone] Encounter Details Date Type Department Care Team (Late Contact Info) Description 10/30/2021 [facility] [address] Cecy Mayers MA Social History [...] Sex Assigned at Female 11/19/2024 3:58 PM AWNING SPREADER Legal Sex Female 2:32 AM CDT Gender Identity Not on file Sexual Orientation Not on file Occupation Industry Job Start Date Job End Date Not on file Not on file Not on file Not on file documented as of this encounter Plan of Treatment Upcoming Encounters Date Type Department Care Team (Late st Contact Info) Description 10/31/2025 1:00 PM AWNING SPREADER [facility] [place] [facility] [address] [place] [address] Chang Jaimes MD [address] [place] [address] 05/22/2026 2:20 PM CDT Office Visit [facility] [address] [address] Oswald Carrero DO [address] [place] [address] documented as of this encounter Procedures Procedure [...] on filedocumented in this encounter Care Teams Division Order Analyst Relationship Specialty Start Date End Date Noelle Tate FNP Three [facility] [address] [place] [address] PCP - General Nurse Practitioner Family 01/04/21 Chang Jaimes MD [facility] [address] [place] [address] El Esc[place]ation Engineer CARDIOVASCULAR DISEASE 05/20/17 documented as of this encounter
--- OUTSIDE RECORDS SUMMARY | 2025-10-04 17:39 | XMS_ITS | Clinical Summary ---
Author Organization [facility] Address [facility] [place] [address] Care Team Providers Care Nursing Informatics Analyst Name Role Phone Chang Jaimes MD Unavailable [phone] Noelle Tate Primary Care Provider [phone] Allergies Active Allergy Reactions Criticality Noted Date [...] total). 1 WEEK PER MONTH 06/07/2024 Active diclofenac EC (VOLTAREN) 50 MG tablet Take 1 tablet (50 mg total) by mouth daily. 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 07/03/2017 Dizziness 05/27/2017 Presence of both artificial knee joints 09/09/20 16 Osteoarthrosis involving lower leg 05/02/2015 Overview (11/18/2019): Overview: 2015 IMO Updt S/P knee replacement 05/02/2015 Essential (primary) hypertension Atypical chest pain Immunizations Immunization Administration Dates Next Due Fluzone 6 Months+ Quad (0.5 mL Prefilled Syringe ) 07/21/2019 Influenza (Generic) 07/27/2015 Influenza Adult (Generic) 07/09/2018,07/10/2017 Pneumococcal (Pneumovax 23) 05/23/2018 Shingrix 11/27/2018 Tdap (Boostrix) 02/05/2019 Zoster (Zostavax) [address] Unt/0.65Ml 10/20/2017 Family History Medical History Relation [...] Sex Assigned at Female 11/19/2024 3:58 PM PREPARED FOODS ASSOCIATE Legal Sex Female 2:32 AM CDT Gender Identity Not on file Sexual Orientation Not on file Occupation Industry Job Start Date Job End Date Not on file Not on file Not on file Not on file Last Filed Vital Signs Vital Sign Reading Time Taken Comments Blood Pressure 132/84 06/13/2025 1:35 PM CDT Pulse 69 06/13/2025 1:35 PM CDT Temperature 36.4 C (97.5 F) 04/12/2024 11:25 AM CDT Respiratory Rate 16 06/13/2025 1:35 PM CDT Oxygen Saturation 96% 06/13/2025 1:35 PM CDT Inhaled Oxygen Concentration - - Weight 111.6 kg (246 lb) 06/13/2025 1:35 PM CDT Height 162.6 cm (5' 4) 06/13/2025 1:35 PM CDT Body Mass Index 42.23 06/13/2025 1:35 PM CDT Plan of Treatment Upcoming Encounters Date Type Department Care Team (Late st Contact Info) Description 10/31/2025 1:00 PM PREPARED FOODS ASSOCIATE Office Visit [place] [facility] [address] [place] [address] Chang Jaimes MD Three [facility] [address] [place], [place] [id number] 05/22/2026 2:20 PM CDT Office Visit [facility] [address] [place] [address] Oswald Carrero DO [address] [facility] [address] [place], [place] [phone] Health Maintenance Due Date Last Done Comments Colorectal Cancer Screening Colonoscopy (10 Years) 1950 Hepatitis C 1970 Mammogram Screening 1992 RSV Immunization or 60+ Years (1 - Risk 60-74 years 1-dose series) 2012 Annual Medicare Wellness Visit 2017 Dexa Scan (General) 2017 Zoster Vaccines (3 of 3) 01/22/2019 019, 11/27/2018, 09/01/2018, Additional history exists ASCVD LDL 02/18/2024 02/17/2023, 10/20, 12/25/2020, Additional history exists PHQ-2 (Physician Zimmerman) 10/20/2024 COVID-19 Vaccine (3 - season) 2025 08/19/2022, 08/23/2021 Influenza Adult (#1) 2025 07/21/2019, 07/09/2018, 07/11/2017, Additional history exists DTaP, Tdap and Td Vaccines (2 - Td or Tdap) 02/05/2029 02/05/2019 Pneumococcal Vaccine: 50+ Years Completed 05/23/2018, 04/12/2017 Hepatitis A Vaccines Aged Out No long er eligible based on patient's age to complete this topic Meningococcal B Vaccine Aged Out No l [...] 125 <200.0 MG/DL 02/17/2023 12:39 PM CDT [facility] TRIGLYCERIDES 89 <150 MG/DL 02/17/2023 12:39 PM CDT [facility] HDL 52 >40.0 MG/DL 02/17/2023 12:39 PM CDT [facility] LDL (CALCULATED) 55 <100 MG/DL 02/18/20 12:39 PM CDT [facility] NON HDL CHOLESTEROL 73 <130 MG/DL 02/17 12:39 PM CDT [facility] CHOL/HDL RATIO 2.4 0.0 - 4.5 02/17/2023 12:39 PM CDT [facility] VLDL CALCULATION 18 5 - 55 MG/DL 02/17/2023 12:39 PM CDT [facility] LIPID INTERPRETATION 02/17/2023 12:39 PM CDT [facility] Comment: NIH CONCENSUS REPORT RECOMMENDATIONS: ADULT CHILD LOW RISK: CHOLESTEROL <200 <170 TRIGLYCERIDE <150 --- HDL >=60 --- LDL <100 <110 BORDERLINE: CHOLESTEROL 200-239 170-199 TRIGLYCERIDE 150-199 --- HDL 40-59 --- LDL 100-159 110-129 HIGH RISK: CHOLESTEROL >=240 >=200 TRIGLYCERIDE >=200 --- HDL <40 --- LDL >=160 >=130 02/17/2023 11:5 4 AM CDT Chinyere Gómez MANAGER [facility] Final Result [facility] [address] [place] [address], from Last 3 Months or Most Recently Relevant to Health Maintenance Insurance MEDICARE [facility] Advance Directives * Full Code (Latest Code Status on File) Date Activated Date Inactivated Comments 11/18/2019 5:38 AM 11/18/2019 6:01 PM Care Teams Nursing Informatics Analyst Relationship Specialty Start Date End Date Noelle Tate FNP Three [facility]. [address] [address] PCP - General Nurse Practitioner Family 01/04/21 Chang Jaimes MD Three [facility]. [address] [address] [place] Hvac Service Tech CARDIOVASCULAR DISEASE 05/20/17
--- OUTSIDE RECORDS SUMMARY | 2025-10-04 17:39 | XMS_ITS | Encounter Summary ---
Author Organization [facility] Address [facility] [place] [address] Care Team Providers Care Plastic Surgery Specialist Name Role Phone Chang Jaimes MD Unavailable [phone] Mayo Guzman MD Primary Care Provider [phone] Chang Jaimes MD Unavailable [phone] Serena Villa MD Primary Care Pro vider Noelle Tate Primary Care Provider [phone] Encounter Details Date Type Department Care Team (Late st Contact Info) Description 10/23/2018 [facility] at [address] [address] Cecy Mayers MA Social History Tobacco Use Types Packs/Day Years Used Date Smoking Tobacco: Never Smokeless Tobacco: Never Alcohol Use Standard Drinks/Week Comments No 0 (1 standard drink = 0.6 oz pur e alcohol) Comments Unknown Sex and Gender Information Value Date Recorded Sex Assigned at Female 11/19/2024 3:58 PM ENVIRONMENTAL FIELD TECHNICIAN Legal Sex Female 2:32 AM CDT Gender Identity Not on file Sexual Orientation Not on file Occupation Industry Job Start Date Job End Date Not on file Not on file Not on file Not on file documented as of this encounter Progress Notes * ZAC Chauhan-JARVIS - 10/23/2018 9:41 AM CST Labs reviewed. No action needed prior to upcoming procedure. RONMENTAL FIELD TECHNICIAN documented in this encounter Plan of Treatment Upcoming Encounters Date Type Department Care Team (Late st Contact Info) Description 10/31/2025 1:00 PM ENVIRONMENTAL FIELD TECHNICIAN Office Visit [facility] [address] [place] [address] Chang Jaimes MD [address] [facility] [address] [place] [address] 05/22/2026 2:20 PM CDT Office Visit [facility] Pulmonology Specialty [facility] [address] [place] [address] Oswald Carrero DO [address] [place], [place] [phone] documented as of this encounter Procedures Procedure [...] documented as of this encounter Care Teams Plastic Surgery Specialist Relationship Specialty Start Date End Date Mayo Guzman MD [address] [place] [address] PCP - General FAMILY PRACTICE 05/20/17 09/18/19 Chang Jaimes MD [address] [place] [address] [facility] Provider 10/20/15 10/18/20 Serena Villa MD [address] [place] [address] PCP - General FAMILY PRACTICE 09/19/19 01/03/21 Noelle Tate FNP [address] [place] [address] PCP - General Nurse Practitioner Family 01/04/21 Chang Jaimes MD [address] [place] [address] [place] Expert CARDIOVASCULAR DISEASE 05/20/17 documented as of this encounter
--- OUTSIDE RECORDS SUMMARY | 2025-10-04 17:39 | XMS_ITS | Clinical Summary ---
Author Organization [facility] [address] Address [address] [place] [address] Care Team Providers Care Promotions Executive Name Role Phone Laurie Strickland MD Primary Care Provider [phone] Allergies Active Allergy Reactions Criticality Noted Date [...] on file Legal Sex Female 12:17 AM TEST FACILITY ENGINEER Gender Identity Not on file Sexual Orientation [...] of Treatment Not on file Insurance MEDICARE [facility] Care Teams Promotions Executive Relationship Specialty Start Date End Date Laurie Strickland MD PCP - General 04/15/17
--- OUTSIDE RECORDS SUMMARY | 2025-10-04 17:39 | XMS_ITS | Encounter Summary ---
Author Organization [facility] Healthcare Address [address] [place] [address] Care Team Providers Care Chief Controller Station Name Role Phone Laurie Strickland MD Primary Care Provider [phone] Encounter Details Date Type Department Care Team (Late st Contact Info) Description 08/05/2018 Orders Only [facility] Health Information Management [address] [place] [address] Scanning, Provider Social History Tobacco Use Types Packs/Day Years Used Date Smoking Tobacco: Never Comments Unknown Sex and Gender Information Value Date Recorded Sex Assigned at Not on file Legal Sex Female 12:17 AM TERMITE TECHNICIAN Gender Identity Not on file Sexual Orientation Not on file documented as of this encounter Plan of Treatment Scheduled Orders Name Type Priority Associated Diagnoses Orde r Schedule Cardiology Document Scan Cardiac Services Ordered: 08/05/2018 documented as of this encounter Visit Diagnoses Not on filedocumented in this encounter Care Teams Chief Controller Station Relationship Specialty Start Date End Date Laurie Strickland MD PCP - General 04/15/17 documented as of this encounter
--- OUTSIDE RECORDS SUMMARY | 2025-10-04 17:39 | XMS_ITS | Encounter Summary ---
Author Organization [facility] Address [address] [facility] [place] [address] Care Team Providers Care Social Science Research Assistant Name Role Phone Og Phillip MD Unavailable [phone] Noelle Tate APRN-ROLLER STITCHER Primary Care Provider Kleber Sanderson MD Unavailable [phone] Christine Witt Primary Care Provider [phone] Encounter Details Date Type Department Care Team (Late st Contact Info) Description 05/29/[address] [facility] Orthopedics [address] [address] [place] [address] [address] Social History Tobacco Use Types Packs/Day Years Used Date Smoking Tobacco: Never Alcohol Use Standard Drinks/Week Comments Yes 0 (1 standard drink = 0.6 oz pur e alcohol) Comments No Sex and Gender Information Value Date Recorded Sex Assigned at Not on file Legal Sex Female 9:13 AM MINE LABORER Gender Identity Not on file Sexual Orientation [...] on filedocumented in this encounter Care Teams Social Science Research Assistant Relationship Specialty Start Date End Date Noelle Tate, PAPER PROCESSING MACHINE HELPER-ROLLER STITCHER [address] [place] [address] PCP - General 05/10/21 12/03/23 Christine Witt [address] [place] [address] PCP - General 12/04/23 [place] [address] [facility] [address] [place] [address] Orthopedic Surgery 02/14/15 Kleber Sanderson MD [address] [facility] [address] [place], [place] [id number] Neurological Surgery 12/04/23 documented as of this encounter
--- OUTSIDE RECORDS SUMMARY | 2025-10-04 17:39 | XMS_ITS | Encounter Summary ---
Author Organization [facility] Address [address] [facility] [place] [address] Care Team Providers Care Support Teacher Name Role Phone Og Phillip MD Unavailable Noelle Tate APRN-DRIVER GUIDE Primary Care Provider Kleber Sanderson MD Unavailable [phone] Christine Witt Primary Care Provider [phone] Encounter Details Date Type Department Care Team (Late st Contact Info) Description 06/19/2015 Therapy Visit [facility] Orthopedics [address] [address] [place] [address] [address] Social History Tobacco Use Types Packs/Day Years Used Date Smoking Tobacco: Never Alcohol Use Standard Drinks/Week Comments Yes 0 (1 standard drink = 0.6 oz pur e alcohol) Comments No Sex and Gender Information Value Date Recorded Sex Assigned at Not on file Legal Sex Female 9:13 AM UNDERGROUND DISTRIBUTION ENGINEER Gender Identity Not on file Sexual [...] on filedocumented in this encounter Care Teams Support Teacher Relationship Specialty Start Date End Date Noelle Tate, MOVEMENT ASSEMBLY FINAL INSPECTOR-DRIVER GUIDE [address] [place] [address] PCP - General 05/10/21 12/03/23 Christine Witt [address] [place] [address] PCP - General 12/04/23 [place] [address] [facility] [address] [place] [address] Orthopedic Surgery 02/14/15 Kleber Sanderson MD [address] [facility] [address] [place], [place] [phone] Neurological Surgery 12/04/23 documented as of this encounter
--- OUTSIDE RECORDS SUMMARY | 2025-10-04 17:39 | XMS_ITS | Encounter Summary ---
Author Organization [facility] Address [address] [facility] [place] [address] Care Team Providers Care Manager General Name Role Phone Og Phillip MD Unavailable [phone] Noelle Tate APRN-CULINARY ASSISTANT Primary Care Provider Kleber Sanderson MD Unavailable Christine Witt Primary Care Provider [phone] Encounter Details Date Type Department Care Team (Late st Contact Info) Description 05/01/2015 Therapy Visit [facility] Orthopedics [address] [address] [place] [address] [address] Social History Tobacco Use Types Packs/Day Years Used Date Smoking Tobacco: Never Alcohol Use Standard Drinks/Week Comments Yes 0 (1 standard drink = 0.6 oz pur e alcohol) Comments No Sex and Gender Information Value Date Recorded Sex Assigned at Not on file Legal Sex Female 9:13 AM NETWORK MANAGEMENT SPECIALIST Gender Identity Not on file Sexual [...] filedocumented in this encounter Care Teams Manager General Relationship Specialty Start Date End Date Noelle Tate, SAP BODS DEVELOPER-CULINARY ASSISTANT [address] [place] [address] PCP - General 05/10/21 12/03/23 Christine Witt [address] [place] [address] PCP - General 12/04/23 [place] [address] [facility] [address] [place] [address] Orthopedic Surgery 02/14/15 Kleber Sanderson MD [address] [facility] [address] [place], [place] [phone] Neurological Surgery 12/04/23 documented as of this encounter
--- OUTSIDE RECORDS SUMMARY | 2025-10-04 17:39 | XMS_ITS | Encounter Summary ---
Author Organization [facility] Address [facility] [place] [address] Care Team Providers Care Engineer Booster And Exhauster Name Role Phone Chang Jaimes MD Unavailable [phone] Mayo Guzman MD Primary Care Provider [phone] Chang Jaimes MD Unavailable [phone] Serena Villa MD Primary Care Pro vider Noelle Tate Primary Care Provider [phone] Encounter Details Date Type Department Care Team (Late st Contact Info) Description 06/17/2017 Abstract [facility] AT [address] [address] Cecy Mayers MA Social History Tobacco Use Types Packs/Day Years Used Date Smoking Tobacco: Never Smokeless Tobacco: Never Alcohol Use Standard Drinks/Week Comments No 0 (1 standard drink = 0.6 oz pur e alcohol) Comments Unknown Sex and Gender Information Value Date Recorded Sex Assigned at Female 11/19/2024 3:58 PM RN DIALYSIS Legal Sex Female 2:32 AM CDT Gender [...] st Contact Info) Description 10/31/2025 1:00 PM RN DIALYSIS Office Visit [facility] [address] [place] [phone] Chang Jaimes MD [address] [place] [address] 05/22/2026 2:20 PM CDT Office Visit [facility] [place] [address] [place] [phone] Oswald Carrero DO [address] [place], [place] [phone] documented as of this encounter Procedures Procedure [...] encounter Results * LIPID PANEL (08/05/2018) Pathologist [facility] CHOLESTEROL 95 HDL 34 TRIGLYCERIDES 66 LDL (CALCULATED) 41 08/05/2018 us Doc [facility] Final Result * BASIC METABOLIC PANEL (08/05/2018) Pathologist [facility] SODIUM S/P/B 140 POTASSIUM S/P/B 4.0 CO2 28 CHLORIDE S/P/B 105 GLUCOSE 99 mg/dL CALCIUM S/P/B 9.1 BUN 19 CREATININE S/P/B 0.8 0.5 - 1.0 EGFR NON-AFR. AMER. >60 <=90 08/05/2018 us Doc [facility] Final Result * CBC (OUTSIDE LAB) (08/05/2018) Pathologist [facility] WBC 4.8 HGB 12.9 HCT 39 PLT 173 08/05/2018 us Doc [facility] LAB-OUTSIDE/ABSTRACTED Final Result * HEPATIC FUNCTION PANEL (08/04/2018) Pathologist [facility] ALBUMIN S/P/B 4.2 3.5 - 5.0 ALKALINE PHOSPHATASE S/P/B 89 ALT 35 AST 30 BILIRUBIN TOTAL S/P/B 0.7 TOTAL PROTEIN S/P/B 7.0 08/04/2018 us Doc [facility] Final Result * VITAMIN D, 25 OH (01/20/2018) Pathologist [facility] VITAMIN D 25 HYDROXY S/P/B 43 01/20/2018 us Doc [facility] Final Result * CBC (OUTSIDE LAB) (01/20/2018) WBC 5.6 HGB 14.2 HCT 42.1 PLT 189 01/20/2018 us Doc [facility] LAB-OUTSIDE/ABSTRACTED Final Result * COMPREHENSIVE METABOLIC PANEL (01/20/2018) Pathologist [facility] SODIUM S/P/B 142 POTASSIUM S/P/B 4.6 CO2 [...] Final Result * LIPID PANEL (01/20/2018) Pathologist [facility] CHOLESTEROL 134 HDL 52 TRIGLYCERIDES 95 NON HDL CHOLESTEROL 82 LDL (CALCULATED) 64 01/20/2018 us Doc [facility] Final Result * HCT (ABSTRACTED) (06/16/2017) Pathologist [facility] HCT 42.5 06/16/2017 us Doc [facility] LAB-OUTSIDE/ABSTRACTED Final Result * CREATININE (06/16/2017) Pathologist [facility] CREATININE S/P/B 0.92 0.5 - 1.0 EGFR [...] documented as of this encounter Care Teams Engineer Booster And Exhauster Relationship Specialty Start Date End Date Mayo Guzman MD [address] [place] [address] PCP - General FAMILY PRACTICE 05/20/17 09/18/19 Chang Jaimes MD [address] [place], [place] [address] PCP - [facility] - [facility] Attributed Provider 10/20/15 10/18/20 Serena Villa MD [address] [place] [address] PCP - General FAMILY PRACTICE 09/19/19 01/03/21 Noelle Tate FNP [address] [place] [address] PCP - General Nurse Practitioner Family 01/04/21 Chang Jaimes MD [address] [place], [place] [phone] El Cash Application Clerk CARDIOVASCULAR DISEASE 05/20/17 documented as of this encounter
--- OUTSIDE RECORDS SUMMARY | 2025-10-04 17:39 | XMS_ITS | Clinical Summary ---
Author Organization [facility] Address [address] [facility] [place] [address] Care Team Providers Care Beef Ribber Name Role Phone Og Phillip MD Unavailable Kleber Sanderson MD Unavailable Christine Witt Primary Care Provider [phone] Source Comments [facility],non-owned Affiliates and Associated Physician Practices is amultiple site organization consisting of ambulatory clinics and hospital sitesin [place], [place], [place] and [place]. This disclosure is being madepursuant to the Care Everywhere program and may not contain all information available regarding this patient. Last updated 18.[facility] Allergies Active Allergy Reactions Criticality [...] on file Legal Sex Female 9:13 AM BUNDLE PERSON Gender Identity Not on file Sexual Orientation Not on file Occupation Industry Job Start Date Job End Date RETIRED Not on file Not on file Not on file Last Filed Vital Signs Vital Sign Reading Time Taken Comments Blood Pressure 164/84 12/04/2023 9:59 AM BUNDLE PERSON Pulse 76 12/04/2023 9:59 AM BUNDLE PERSON Temperature 36.9 C (98.5 F) 01/08/2019 10:08 AM CDT Respiratory Rate 16 01/08/2019 10:08 AM CDT Oxygen Saturation 94% 01/08/2019 10:08 AM CDT Inhaled Oxygen Concentration - - Weight 108.9 kg (240 lb) 12/04/2023 9:59 AM BUNDLE PERSON Height 165.1 cm (5' 5) 12/04/2023 9:59 AM BUNDLE PERSON Body Mass Index 39.94 12/04/2023 9:59 AM BUNDLE PERSON Plan of Treatment Health Maintenance Due Date [...] 2002 ZOSTER VACCINE (1 of 2) 2002 DEPRESSION SCREENING 10/20/2024 COVID-19 VACCINE (1 - season) 2025 INFLUENZA VACCINE (#1) 2025 , 07/09/2018, 07/10/2017, [...] this topic Medical Devices Implanted Type Area Sales Account Manager Device Identifier Shelf Expiration Date Model / Serial / Lot Alexey Bone [place] Hv Implanted:Qty: 1 on 04/17/2015 by Og Phillip MD at [facility] Right: Knee [employer] 10/20/2016 [id number] / / [id number] Ins Kn Vangurd Fem Cocr R-Intlok 70mm Implanted:Qty: 1 on 04/17/2015 by Og Phillip MD at [facility] Right: Knee [employer] 03/20/2025 [id number] / / [id number] Ty Tibial I Beam Fix Bar 71mm Implanted:Qty: 1 on 04/17/2015 by Og Phillip MD at [facility] Right: Knee [employer] 02/17/2025 [id number] / / [id number] Butn Pat Arcom Wire Polyeth Xsm 28 X 8 Implanted:Qty: 1 on 04/17/2015 by Og Phillip MD at [facility] Right: Knee [employer] 02/01/2020 [id number] / / [id number] Brdg Tib Karina Stbl 12mm X 71mm Implanted:Qty: 1 on 04/17/2015 by Og Phillip MD at [facility] Right: Knee [employer] 02/23/2020 [id number] / / [id number] Vangrd Ant Stblzd Brg 10mm X 75mm Implanted:Qty: 1 on 09/04/2015 by Og Phillip MD at [facility] Left: Knee [employer] 03/23/2020 [id number] / / [id number] Alexey Bone [place] Hv Implanted:Qty: 1 on 09/04/2015 by Og Phillip MD at [facility] Left: Knee [facility] 04/18/2017 [id number] / / [id number] Butn Pat Arcom Wire Polyeth Xsm 28 X 8 Implanted:Qty: 1 on 09/04/2015 by Og Phillip MD at [facility] Left: Knee [employer] 07/19/[id number] / / [id number] Ins Kn Vangurd Fem Cocr L-Intlok 70.0mm Implanted:Qty: 1 on 09/04/2015 by Og Phillip MD at [facility] Left: Knee [employer] 08/19/2024 [id number] / / [id number] Ty Tibial I Beam Fix Bar 75mm Implanted:Qty: 1 on 09/04/2015 by Og Phillip MD at [facility] Left: Knee [employer] 11/19/2024 [id number] / / [id number] Insurance MEDICARE MEDICARE [employer] [place] [facility] Address: [address] [address] ATTN [facility] [place] [address] [employer] [place] [employer] SELF PAY NO INSURANCE Member Subscriber Plan / Payer (Ef fective for All Dates) Name:Briecelsoraciel Janette Rodolfo Member ID:Not on file Relation to Subscriber:Not on file Name:JANETTE BYNUM Subscriber ID:Not on file (Home) Address: [address] [place] [address] Payer ID:Not on file Group ID:Not on file Type:Self Pay Address: [facility] MEDICARE [facility] [place] [id number] Advance Directives Documents on File Type Date Recorded 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 Electrification 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 Expl 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 Adv Directive/Living Will/POA 04/24/2015 11:25 PM * Full Code (Latest Code Status on File) Date Activated Date Inactivated Comments 09/04/2015 10:45 AM 09/07/2015 4:32 PM * Full Code Date Activated Date Inactivated Comments 04/17/2015 11:36 AM 04/21/2015 3:21 PM Care Teams Beef Ribber Relationship Specialty Start Date End Date Christine Witt [address] [place] [address] PCP - General 12/04/23 [place] [address] [facility] [address] [place] [address] Orthopedic Surgery 02/14/15 Kleber Sanderson MD [address] [facility] [address] [place] [address] Neurological Surgery 12/04/23
[2025-10-04 19:16] LABS: Alanine Aminotransferase 24 U/L (6-35); Alkaline Phosphatase 87 U/L (38-126); Anion Gap 5 mmol/L (4-12); Aspartate Amino Transferase 32 U/L (14-36); Bilirubin,Total 0.5 mg/dL (0.2-1.3); Blood Urea Nitrogen 18 mg/dL (7-17); Calcium 10.2 mg/dL (8.4-10.2); Carbon Dioxide 30 mmol/L (22-30); Chloride 106 mmol/L (98-107); Cholesterol 142 mg/dL (0-200); Estimated Glomerular Filt Rate > 60; Glucose 108 mg/dL (65-110); HDL Direct 43 mg/dL; Potassium 4.7 mmol/L (3.4-5.0); Sodium 141 mmol/L (137-145); Total Protein 7.6 g/dL (6.3-8.2); Triglycerides 170 mg/dL (<150)
[2025-10-04 19:20] LABS: Hematocrit 42.2 % (37.0-47.0); Hemoglobin 13.7 g/dL (12.0-15.0); Immature Granulocyte Percent A 0.3 % (0-0.5); Lymphocytes Absolute Auto 2.27 K/mm3 (0.9-3.2); Mean Corpuscular HGB Conc 32.5 g/dl (32-36); Mean Corpuscular Hemoglobin 32.5 pg (26-34); Mean Corpuscular Volume 100.0 fl (80-100); Nucleated Red Blood Cells Absolute Auto 0.000 K/mm3 (0.0-0.012); Nucleated Red Blood Cells Perc 0.0 % (0.0-0.2); Platelet Count Result 190 k/mm3 (150-375); Red Blood Count 4.22 M/mm3 (4.2-5.4); White Blood Count 7.4 K/mm3 (4.5-10.0)
[2025-10-04 19:27] LABS: Albumin Level 4.2 g/dL (3.5-5.1)
[2025-10-04 19:45] LABS: Free T4 Free Thyroxine 0.96 ng/dL (0.78-2.19)
[2025-10-04 19:52] LABS: Thyroid Stimulating Hormone 3.070 uIU/mL (0.465-4.680)
[2025-10-04 20:30] LABS: Hemoglobin A1C 6.2 % (<5.7)
== END 2025-10-04 15:23 | disposition home or self-care (01) ==
PROVIDERS: PCP Nurse Practitioner Family; Visit Provider Nurse Practitioner Family
DX: E03.9 Hypothyroidism, unspecified (principal); R73.9 Hyperglycemia, unspecified; E55.9 Vitamin D deficiency, unspecified; E78.5 Hyperlipidemia, unspecified; I10 Essential (primary) hypertension
CPT/HCPCS: 36415; 80053; 80061; 82306; 83036; 84439; 84443; 85025